=== PATIENT | female | born 1995 | race Caucasian/White ===

== ENCOUNTER 2017-07-20 00:33 | Emergency (ER) | payer MEDICAID, SELFPAY ==
[2017-07-20 00:34] VITALS: BP 112/71; PULSE 71; RESP 17; TEMP 36.7; O2SAT 97; BMI 27.3
[2017-07-20] MEDS: Clindamycin HCl 150 MG Capsule 450 MG PO (01:02)
--- NOTE | 2017-07-20 01:05 | ED.VISSUMM ---
- ER Visit Summary Date of Service: 07/20/17 Chief Complaint: [] Rash History of Present Illness: The patient is a 21 F [] any of abdominal wall rash/abscess beginning 2 days ago. She reports she is 8 weeks . Denies fevers. Does report previous exposure to MRSA. She is also here with her 1-year-old child is also checked in for a skin lesion on the right knee. No other complaints at this time. Physical Examination: [] Examination of the skin reveals a 1 cm nonfluctuant central induration abscess with surrounding erythema. It has the appearance consistent of a MRSA infection. There is no lymphatic streaking. Abdomen is soft nontender. Remainder of exam is unremarkable. Test Results: [] None Emergency Department Course and Treatment: [] In light of the patient's status this makes many antibiotics contraindicated. Because the likelihood that this is a recurrence of a MRSA infection she was provided with clindamycin 450 mg orally in the emergency department as well as provided a prescription for clindamycin 450 mg 3 times daily for 14 days. She was encouraged to follow-up with her TOW OPERATOR and or primary care physician. I did not feel the wound warranted incision and drainage as it was nonfluctuant. Treatment Plan: [] Discharged home on oral antibiotic treatment. Disposition: [] Discharge, stable. Impression: [] Abdominal wall abscess, likely MRSA. This note was generated with [employer] dictation software. It may contain incorrect words, spelling, and punctuation that were not noted in review of the chart prior to signing ED Disposition - Plan for ED Patient: Chief Complaint: Abscess Referrals: Michael Barbosa MD [Primary Care Provider] -
--- NOTE | 2017-07-20 01:09 | ED.DCSUM_ITS ---
- ER Visit Summary Date of Service: 07/20/17 Chief Complaint: [] Rash History of Present Illness: The patient is a 21 F [] any of abdominal wall rash/ abscess beginning 2 days ago. She reports she is 8 weeks . Denies fevers. Does report previous exposure to MRSA. She is also here with her 1- year-old child is also checked in for a skin lesion on the right knee. No other complaints at this time. Physical Examination: [] Examination of the skin reveals a 1 cm nonfluctuant central induration abscess with surrounding erythema. It has the appearance consistent of a MRSA infection. There is no lymphatic streaking. Abdomen is soft nontender. Remainder of exam is unremarkable. Test Results: [] None Emergency Department Course and Treatment: [] In light of the patient's status this makes many antibiotics contraindicated. Because the likelihood that this is a recurrence of a MRSA infection she was provided with clindamycin 450 mg orally in the emergency department as well as provided a prescription for clindamycin 450 mg 3 times daily for 14 days. She was encouraged to follow-up with her ROOM SERVICE MANAGER and or primary care physician. I did not feel the wound warranted incision and drainage as it was nonfluctuant. Treatment Plan: [] Discharged home on oral antibiotic treatment. Disposition: [] Discharge, stable. Impression: [] Abdominal wall abscess, likely MRSA. This note was generated with [employer] dictation software. It may contain incorrect words, spelling, and punctuation that were not noted in review of the chart prior to signing ED Disposition - Plan for ED Patient: Chief Complaint: Abscess Referrals: Michael Barbosa MD [Primary Care Provider] -
--- NOTE | 2017-07-20 01:09 | ED.DEP ---
ED Disposition - Plan for ED Patient: Disposition: Home or Assisted Living Chief Complaint: Abscess Instructions: ED Skin Infec MRSA Suspect Conf Prescriptions: Clindamycin [Cleocin] 450 mg PO TID 14 Days #126 cap Referrals: Michael Barbosa MD [Primary Care Provider] -
--- NOTE | 2017-07-20 01:40 | NURSING ---
DISCHARGE INSTRUCTIONS GIVEN TO AND REVIEWED WITH PATIENT, PATIENT DENIES QUESTIONS OR CONCERNS AND VOICES UNDERSTANDING OF DISCHARGE INSTRUCTIONS. PT AMBULATES OUT OF ROOM WITHOUT DIFFICULTY.
== END 2017-07-20 01:44 | disposition home or self-care (01) ==
LOC: ED 01:43
PROVIDERS: Emergency Provider Emergency Medicine; Family Provider Family Medicine; PCP Family Medicine
DX: L02.211 Cutaneous abscess of abdominal wall (principal)
CPT/HCPCS: 99283

== ENCOUNTER 2017-11-02 22:08 | Emergency (ER) | payer MEDICAID, SELFPAY ==
[2017-11-02 22:09] VITALS: BP 100/39; PULSE 111; RESP 16; TEMP 36.4; O2SAT 99; BMI 29.3
[2017-11-02] MEDS: 0.9% Normal Saline 1,000 ML 1000 ML IV (23:03)
--- NOTE | 2017-11-02 23:07 | ED.VISSUMM ---
- ER Visit Summary Date of Service: 11/02/17 Chief Complaint: Nausea, vomiting, diarrhea History of Present Illness: The patient is a 22 F who presents with nausea, vomiting, diarrhea that began today. Patient states she ate a bowl of cereal this morning without any problems. Patient states she ate soup for lunch started having nausea, vomiting, and diarrhea since that time. Patient is approximately 24 weeks . Patient denies any vaginal bleeding or discharge. Patient denies any leakage of fluids. Patient admits to some diffuse abdominal cramping. Patient states her diarrhea is watery. Patient states her emesis is stomach contents. Patient denies any hematemesis, coffee-ground emesis, melena, or hematochezia. Patient denies any dysuria or hematuria. Physical Examination: Vital signs are stable except for a tachycardia of 111. Patient is afebrile. Patient is in no acute distress. Oral mucosa is pink and moist. Neck is supple. There is good range of motion. Heart was regular and tachycardic. Lungs are clear and equal bilaterally. Abdomen is soft. There is mild diffuse tenderness. There is no rebound or guarding noted. Cranial nerves II through XII are intact. There are no focal motor or sensory deficits noted. The remaining physical exam is within normal limits. Test Results: CBC shows mild leukocytosis of 12.1. Conference of metabolic profile is within normal limits. Quantitative hCG is 4412 which is the low end of the normal range at 24 weeks. Urinalysis was obtained and shows ketones of 150, leukocyte esterase was 25. There were 0-5 white blood cells, 0 red blood cells, and 5-10 epithelial cells. Emergency Department Course and Treatment: Patient was given IV fluids and Zofran here. heart tones were obtained and were 134. Patient still had some mild abdominal cramping. Patient was instructed to drink plenty of fluids. Patient was given a prescription for Zofran. Patient was instructed to follow-up with her LABORER COOK [employer]SE in 2-3 days. Patient understood and was agreeable with the plan. All questions were answered. Disposition: Discharge home Impression: Nausea, vomiting, diarrhea This note was generated with [employer] dictation software. It may contain incorrect words, spelling, and punctuation that were not noted in review of the chart prior to signing ED Disposition - Plan for ED Patient: Disposition: Home or Assisted Living Chief Complaint: Nausea/Vomiting/Diarrhea Diagnosis: Nausea vomiting and diarrhea Instructions: ED Vomiting Diarrhea Nonspecific Ad Referrals: Michael Barbosa MD [Primary Care Provider] -
--- NOTE | 2017-11-02 23:12 | ED.DCSUM_ITS ---
- ER Visit Summary Date of Service: 11/02/17 Chief Complaint: Nausea, vomiting, diarrhea History of Present Illness: The patient is a 22 F who presents with nausea, vomiting, diarrhea that began today. Patient states she ate a bowl of cereal this morning without any problems. Patient states she ate soup for lunch started having nausea, vomiting, and diarrhea since that time. Patient is approximately 24 weeks . Patient denies any vaginal bleeding or discharge. Patient denies any leakage of fluids. Patient admits to some diffuse abdominal cramping. Patient states her diarrhea is watery. Patient states her emesis is stomach contents. Patient denies any hematemesis, coffee- ground emesis, melena, or hematochezia. Patient denies any dysuria or hematuria. Physical Examination: Vital signs are stable except for a tachycardia of 111. Patient is afebrile. Patient is in no acute distress. Oral mucosa is pink and moist. Neck is supple. There is good range of motion. Heart was regular and tachycardic. Lungs are clear and equal bilaterally. Abdomen is soft. There is mild diffuse tenderness. There is no rebound or guarding noted. Cranial nerves II through XII are intact. There are no focal motor or sensory deficits noted. The remaining physical exam is within normal limits. Test Results: CBC shows mild leukocytosis of 12.1. Conference of metabolic profile is within normal limits. Quantitative hCG is 4412 which is the low end of the normal range at 24 weeks. Urinalysis was obtained and shows ketones of 150, leukocyte esterase was 25. There were 0-5 white blood cells, 0 red blood cells, and 5-10 epithelial cells. Emergency Department Course and Treatment: Patient was given IV fluids and Zofran here. heart tones were obtained and were 134. Patient still had some mild abdominal cramping. Patient was instructed to drink plenty of fluids. Patient was given a prescription for Zofran. Patient was instructed to follow-up with her VALVE TECHNICIAN in 2-3 days. Patient understood and was agreeable with the plan. All questions were answered. Disposition: Discharge home Impression: Nausea, vomiting, diarrhea This note was generated with [employer] dictation software. It may contain incorrect words, spelling, and punctuation that were not noted in review of the chart prior to signing ED Disposition - Plan for ED Patient: Disposition: Home or Assisted Living Chief Complaint: Nausea/Vomiting/Diarrhea Diagnosis: Nausea vomiting and diarrhea Instructions: ED Vomiting Diarrhea Nonspecific Ad Referrals: Michael Barbosa MD [Primary Care Provider] -
[2017-11-02] MEDS: Ondansetron 4 MG/2 ML Vial IV (23:19)
[2017-11-02 23:32] LABS: Absolute Lymphocyte Count 0.74 X10^3/ul (0.83-4.51); Absolute Neutrophil Count 10.7 X10^3/uL (2.0-7.7); Basophil# 0.01 X10^3/uL; Basophil% 0.1 % (0-1); Eosinophil# 0.01 X10^3/uL; Eosinophils% 0.1 % (0-5); Hematocrit 38.6 % (37-47); Hemoglobin 13.3 g/dl (12.0-15.0); Lymphocyte # 0.74 X10^3/ul (4.0); Lymphocyte % 6.1 % (19-41); Mean Corp Hgb Conc 34.5 g/gl (32-36); Mean Corpuscular Hgb 29.3 pg (27.0-32.0); Monocyte# 0.49 X10^3/uL; Monocyte% 4.1 % (0-10); Neutrophil # 10.69 X10^3/uL (2.7-7.7); Neutrophil % 88.5 % (47-70); Platelet Count 240 K/mm3 (150-450); RBC Distribution Width CV 13.1 % (11.6-14.6); RBC Distribution Width SD 39.9 fl (35.1-43.9); Red Blood Count 4.54 M/mm3 (4.2-5.4); White Blood Count 12.1 K/mm3 (4.4-11.0)
[2017-11-02 23:35] LABS: POSITIVE COUNT NO; POSITIVE DIFFERENTIAL NO; POSITIVE MORPHOLOGY NO
[2017-11-02 23:40] LABS: ALB/GLOB Ratio 0.7 RATIO (0.9-2.4); AST(SGOT) 13 U/L (15-37); Alanine Aminotransfer ALT/SGPT 14 U/L (13-56); Albumin, Serum 3.3 g/dL (3.2-5.0); Alkaline Phosphatase 70 U/L (45-117); Anion Gap 12 (5-15); BUN 14 mg/dL (7-18); BUN/Creat Ratio 18.9 RATIO (10-20); Calcium,Total 8.6 mg/dL (8.5-10.1); Chloride 106 mmol/L (98-107); Creatinine, Serum 0.74 mg/dL (0.55-1.02); EST Glomerular Filtration Rate 104 mL/min (>60); Est Glom Filt Rate - Afr Amer 126 mL/min (>60); Estimated Creatinine Clearance 98.64 ml/min; Globulin 4.6 g/dL (2.2-4.2); Glucose 87 mg/dL (74-106); Potassium 3.6 mmol/L (3.5-5.1); Protein, Total 7.9 g/dL (6.4-8.2); Sodium Level 140 mmol/L (136-145)
[2017-11-02 23:53] LABS: hCG Titer Quant., Serum 4412 mIU/mL (<9 non-preg)
[2017-11-03 00:21] LABS: Bacteria 0 SEEN /hpf (None Seen); Red Blood Cells-Urine 0 SEEN /hpf (0-5)
[2017-11-03 00:25] LABS: Color, Urine Yellow (Yellow); Glucose, Dipstick Normal (Normal); Leukocyte Esterase-Dipstick 25 /ul (Negative); Nitrite-Dipstick Negative (Negative); Occult Blood-Urine Negative /ul (Negative); Protein-Dipstick 15 mg/dl (Negative); Urine Clarity Clear (Clear); Urine Urobilinogen Normal (Normal)
[2017-11-03 00:31] LABS: Mucous, Urine 3+ /hpf (<or=2+); Squamous Epithelial Cells - UA 5-10 SEEN /hpf (5-10)
[2017-11-03 00:32] LABS: White Blood Cells 0-5 SEEN /hpf (0-5)
[2017-11-03 00:41] LABS: Urine Bilirubin Dipstick 3 mg/dL (Negative)
[2017-11-03 00:43] LABS: Ketone-Dipstick 150 mg/dl (Negative)
[2017-11-03 01:18] VITALS: BP 113/73; PULSE 76; RESP 16; O2SAT 96
== END 2017-11-03 01:18 | disposition home or self-care (01) ==
PROVIDERS: Emergency Provider Emergency Medicine; Family Provider Family Medicine; PCP Family Medicine
DX: O99.89 Other specified diseases and conditions complicating pregnancy, childbirth and the puerperium (principal); R11.2 Nausea with vomiting, unspecified; R19.7 Diarrhea, unspecified; R10.84 Generalized abdominal pain; R00.0 Tachycardia, unspecified; Z3A.24 24 weeks gestation of pregnancy
CPT/HCPCS: 80053; 81001; 84702; 85025; 96361; 96374; 99283; J7030; J2405

== ENCOUNTER → 2018-02-03 18:42 | Outpatient (CLI) | payer MEDICAID, SELFPAY ==
--- NOTE | 2018-02-03 18:50 | US_ITS ---
STUDY: SECOND AND THIRD TRIMESTER OBSTETRICAL ULTRASOUND - LIMITED REASON FOR EXAM: Female, 22 years old. Small for dates. LMP: 05/14/2017 PRIOR ULTRASOUND: None. TECHNIQUE: Transabdominal real-time exam with manuel scale image documentation. FINDINGS: There is a single intrauterine fetus. The fetus is in a cephalic presentation. There is demonstrated cardiac activity with a heart rate of 139 bpm. There is a normal amniotic fluid volume. The largest amniotic fluid pocket measures 3.9 x 5.0 cm. The amniotic fluid index (BUTCH) is 13.2 cm. The placenta is anterior and not low lying. There are Grade 2 placental changes. The cervix measures 3.0 cm in length. BIOMETRY: BPD: 8.2 cm: 33 weeks, 0 days HC: 29.9 cm: 33 weeks, 2 days AC: 32.7 cm: 36 weeks, 5 days FL: 6.9 cm: 35 weeks, 3 days Age by LMP: 37 weeks, 6 days. LAURIE by LMP: 02/18/2018. age by current US: 34 weeks, 5 days. LAURIE by current US: 03/12/2018. Estimated weight: 2702 grams, +/- 395 grams, 11 percentile. US/OB Limited With Biometrics IMPRESSION: Single living intrauterine fetus measuring 34 weeks and 5 days with an LAURIE of 03/12/2018. 37 weeks and 6 days with an LAURIE of 02/18/2018 by LMP. Estimated weight: 2702 g +/- 395 g, 11th percentile. Normal amniotic fluid index of 13.2 cm. Grade 2, anterior and not low lying placenta. Cervical length of 3.0 cm. Electronically Signed: Diann Parks MD at 19:45 EDT , Service support ,
== END ==
PROVIDERS: Family Provider Family Medicine; PCP Family Medicine; Visit Provider Obstetrics & Gynecology
DX: O26.849 Uterine size-date discrepancy, unspecified trimester (principal); Z3A.00 Weeks of gestation of pregnancy not specified
CPT/HCPCS: 76816

== ENCOUNTER 2018-02-19 16:20 | Inpatient (IN) | payer MEDICAID, SELFPAY ==
[2018-02-19 13:49] VITALS: BMI 28.8
[2018-02-19] MEDS: Lactated Ringers 1,000 ML 50 ML IV ×3 (16:15→20:27)
[2018-02-19 16:57] LABS: Hematocrit 34.5 % (37-47); Hemoglobin 11.4 g/dl (12.0-15.0); Mean Corpuscular Hgb 26.8 pg (27.0-32.0); Mean Platelet Vol. 10.9 fl (6.2-12.0); Platelet Count 250 K/mm3 (150-450); RBC Distribution Width CV 13.9 % (11.6-14.6); Red Blood Count 4.26 M/mm3 (4.2-5.4); White Blood Count 11.7 K/mm3 (4.4-11.0)
[2018-02-19 17:00] LABS: Scan Indicated on CBC? Y/N NO
[2018-02-19] MEDS: fentaNYL-bupivacaine (epidural) 100 ML BAG EPIDURAL (18:50)
[2018-02-19] MEDS: Mag Hydrox/Al Hydrox/Simeth 30 ML UDC PO (20:20)
--- NOTE | 2018-02-19 20:31 | PCM.HP.OB ---
- Problem List (1) Active labor at term Status: Acute (2) Post-dates Status: Acute (3) History of hemorrhage Status: Acute (4) Rubella non-immune status, antepartum Status: Acute History Date of Admission: 02/19/18 Final LAURIE: 02/18/18 Final LAURIE Source: US <20 weeks Gestational age: 40 Weeks and 1 Days History of this : This is a 22 year-old, G [2], P [1], at 40 weeks gestational age by first trimester U/S. Presented to L&D this afternoon with complaints of contractions throughout the night and continued to increased in strength since awakening. Denies any vaginal bleeding or leakage of fluid. Good movement. Membranes stripped in office yesterday. Medical History: Medical History (Last Updated 11/07/17 @ 13:11 by Maranda Diaz) Z34.90 Allergies No Known Allergies Allergy (Verified 11/07/17 13:10) Home Medications: Home Medications Ferrous Sulfate [Iron] 325 mg PO DAILY 02/19/18 Smoking Status: Never smoker Alcohol: None Heart Tracin, minimal variability, accels, no decels, Category 2 TOCO Analysis: every 2-5 minutes, moderate History Past Pregnancies: Past Pregnancies Delivery Date Name GA/Weeks Outcome Route Weight Gender Labor Length Anesthesia Delivery Location Provider FOB Labs: GBS positive Rubella non immune A positive, antibody screen negative RPR negative HBsAG negative HIV negative Urine tox screen negative Expected Delivery Method: Spontaneous Vaginal Review of Systems Constitutional: Denies: Chills, Fever, Weight Change Cardiovascular: Denies: Chest Pain, Palpitations Respiratory: Denies: Cough, Shortness of breath at rest, Sputum production Gastrointestinal: Denies: Nausea, Vomiting Psychiatric: Denies: Anxiety, Depression, Homicidal Ideations, Suicidal Ideations Physical Exam General: Alert, Oriented x3, No apparent distress Cardiovascular: Regular rate, Regular Rhythm, No murmurs Lungs: Clear to auscultation, No rhonchi, No wheeze Abdomen: Bowel Sounds Present, Gravid Extremities:: No edema Neurological: Deep Tendon Reflexes 2+/4 and Symmetrical Estimated gestational size: Appropriate for gestational size Presentation: Cephalic Cervix Dilation (cm): 6.5 Station: -1 Effacement (%): 80 Assessment/Plan All Active Problems (Last Updated 11/07/17 @ 13:11 by Maranda Diaz) Active labor at term (Acute) Post-dates (Acute) History of hemorrhage (Acute) Rubella non-immune status, antepartum (Acute) Self mutilating behavior (Acute) Depression (Acute) This is a 22 year-old, G [2], P [1], at 40 weeks gestational age. A: Postdates Active labor, progressing GBS positive P: 1) Admit to L&D, routine orders 2) GBS prophylaxis 3) Epidural for pain management. 4) AROM 5) collaborative physician and notified of patient status. Marleen Guerra CNM
[2018-02-19] MEDS: Oxytocin 30 units/NS 500 ml 30 UNITS/500 ML IV.SOLN 334 UNITS IV (21:00)
--- NOTE | 2018-02-19 21:19 | PCM.OB.VAG ---
- Problem List (1) Active labor at term Status: Acute (2) Post-dates Status: Acute (3) History of hemorrhage Status: Acute (4) Rubella non-immune status, antepartum Status: Acute (5) Vaginal delivery Status: Acute Vaginal Delivery Maternal Presentation: Active Labor Amniotic Membrane Rupture Type: Artificial Amniotic Fluid Description: Clear Final LAURIE: 02/18/18 Final LAURIE Source: US <20 weeks Gestational age: 40 Weeks and 1 Days Date of Procedure: 02/19/18 Pre-Operative Diagnosis: Active Labor Post-Operative Diagnosis: Surgery/ Procedure Performed: Spontaneous Vaginal Delivery Type of Anesthesia: Epidural Description of Procedure: Progressed to complete and +2 station with urge to push. of viable female over intact perineum. APGARS 9,10. Placed on maternal abdomen, spontaneous cry, mouth and nose suctioned for secretions. Cord clamped and cut after pulsations ceased by FOB. Pitocin started for active 3rd stage management. Placenta delivered with maternal effort, intact, 3 vessel cord. Perineum inspected and intact. Small periclitoral laceration repaired with 3.0 rapide. Fundus firm, hemostasis achieved, EBL 200ml. Planning to breastfeed. Mom and baby stable. Family bonding well. notified of vaginal delivery. Presentation: Vertex Placental Delivery Description: Spontaneous Placenta Disposition: [facility] Cord Vessel Description: 3 Vessels Cord Entanglement: None Estimated Blood Loss: 200ml Infant A gender: Female (1 minute): 9 (5 minute): 10 Episiotomy Description: None Laceration: Periurethral Extnsion/lac Medications given after delivery: IV Pitocin Complications: None
[2018-02-19] MEDS: Oxytocin 30 units/NS 500 ml 30 UNITS/500 ML IV.SOLN 167 UNITS IV (21:30)
[2018-02-19] MEDS: 0.9% Saline Lock 10 ML Syringe IV (22:33)
[2018-02-19 23:30] VITALS: BP 105/59; PULSE 87; RESP 18; TEMP 36.4; O2SAT 97
[2018-02-20] MEDS: Naproxen 250 MG Tablet PO ×2 (01:46→23:58)
[2018-02-20 04:30] VITALS: BP 98/46; PULSE 57; RESP 17; TEMP 36.4
[2018-02-20 04:34] LABS: Chlamydia Trachomatis by PCR Negative (Negative); Neisserai gonorrhoeae by PCR Negative (Negative); Probe Check PASS; Sample Adequacy Control PASS; Specimen Processing Control PASS
[2018-02-20 08:55] VITALS: BP 91/48; PULSE 64; RESP 18; TEMP 36.6; O2SAT 98
--- NOTE | 2018-02-20 11:37 | PCM.PN.OB ---
Patient Problems: Active and Suspected Problems (Last Updated 11/07/17 @ 13:11 by Maranda Diaz) Active labor at term (Acute) Post-dates (Acute) History of hemorrhage (Acute) Rubella non-immune status, antepartum (Acute) Vaginal delivery (Acute) Subjective: pain well controlled, average lochia. Denies thoughts of harming self or others. States she would contact our office if felt mood worsened upon d/c. Feels mood has been somewhat stable but definitely would like to restart celexa - Physical Exam General: Alert, Cooperative, No apparent distress Vital Signs Temp Pulse Resp BP Pulse Ox 97.8 F 64 18 91/48 L 98 02/20/18 08:55 02/20/18 08:55 02/20/18 08:55 02/20/18 08:55 02/20/18 08:55 Oxygen Delivery Method Room Air Weight: 73.9 kg Body Mass Index (BMI) 28.8 Intake and Output for Last 24 Hours 02/18/18 02/19/18 02/20/18 23:59 23:59 23:59 Intake Total 2120 / 2120 Output Total 500 / 500 1350 / 1350 Balance 1620 / 1620 -1350 / -1350 Laboratory Tests Past 24 Hrs 02/19/18 02/19/18 02/19/18 01:15 16:13 16:13 WBC 11.7 H RBC 4.26 Hgb 11.4 L Hct 34.5 L MCV 81.0 MCH 26.8 L MCHC 33.0 RDW 13.9 RDW Differential 40.0 Plt Count 250 MPV 10.9 Chlam trachomat DNA PCR Negative N.gonorrhoeae DNA (PCR) Negative Blood Type A POSITIVE Antibody Screen NEGATIVE Medical Necessity - Tobacco Use Smoking Status: Never smoker Assessment/Plan All Active Problems (Last Updated 11/07/17 @ 13:11 by Maranda Diaz) Active labor at term (Acute) Post-dates (Acute) History of hemorrhage (Acute) Rubella non-immune status, antepartum (Acute) Vaginal delivery (Acute) Self mutilating behavior (Acute) Depression (Acute) PPD#1 s/p doing well bottle feeding h/o depression/mood disorder. Would like to restart celexa, will restart at 10 mg for now
[2018-02-20 12:10] VITALS: BP 88/46; PULSE 74; RESP 16; TEMP 36.4; O2SAT 97
[2018-02-20] MEDS: Citalopram 10 MG Tablet PO (13:49)
[2018-02-20 16:05] VITALS: BP 88/47; PULSE 72; RESP 48; TEMP 36.4; O2SAT 96
[2018-02-20 20:00] VITALS: BP 104/60; PULSE 61; RESP 16; TEMP 36.2; O2SAT 98
[2018-02-21 02:45] VITALS: BP 95/54; PULSE 61; RESP 16; TEMP 36.2
[2018-02-21 08:00] VITALS: BP 100/54; PULSE 58; RESP 16; TEMP 36.1; O2SAT 97
[2018-02-21] MEDS: Senna/Docusate Sodium 1 Tablet PO (08:17)
[2018-02-21] MEDS: Naproxen 250 MG Tablet PO (08:17)
[2018-02-21] MEDS: Citalopram 10 MG Tablet PO (08:17)
--- NOTE | 2018-02-21 08:58 | DCINST_ITS ---
Discharge Diet: No Restrictions Discharge Activity: Return to Normal Activity, May not drive while taking narcotic pain medications., May Shower May resume sexual activity in: 4-6 weeks Additional Activity Instructions:: Nothing in the vagina for 4-6 weeks. You may return to work/school in 6 weeks. Call your doctor if your incision/area has: Continuous Slow Oozing, Sudden Increased Bleeding, Increased Pain/ Swelling, Increased Redness, Foul Smelling Discharge Call your doctor if you observe: Fever of 101 or Higher, Inability to urinate, Inability to have a bowel movement, Using more than one pad per hour Additional Instructions: If you experience any of the following, contact your healthcare provider. * Bleeding that soaks a pad every hour for 2 hours * Fever 100.4 or higher * Unrelieved incision or abdominal pain * Swelling, redness, discharge or bleeding from your incision or episiotomy site * Your incision begins to separate * Problems urinating (including inability to urinate or burning while urinating) . * Visual changes * Severe headache * Flu-like symptoms * Pain or redness in one of both of your breasts * Pain, warmth, tenderness or swelling in your legs, especially the calf area * Frequent nausea and vomiting * Symptoms of depression or anxiety If you experience any of the following, call 911 or go to the nearest Emergency Room. * Chest pain * Problems breathing * Seizure activity * Partial or complete paralysis of a body part, slurred speech, weakness or drooping of the face, or a sudden inability to walk or hold your balance Allergies/Adverse Reactions: Allergies No Known Allergies Allergy (Verified 11/07/17 13:10) Medications to take at Discharge Ferrous Sulfate [Iron] 325 mg PO DAILY 02/19/18 Citalopram [Celexa] 10 mg PO DAILY #90 tab 02/21/18 Vit No.130/Iron/FA [ Vitamins] 1 ea PO DAILY #90 tab 02/21/18 The following prescriptions were given: Citalopram [Celexa] 10 mg PO DAILY #90 tab Vit No.130/Iron/FA [ Vitamins] 1 ea PO DAILY #90 tab Please Follow Up With: Marleen Guerra CNM When: Call to make an appointment with your doctor in 6 weeks. If you had elevated Blood Pressure or 4th degree laceration you will need to be seen in 2 weeks. Primary Care Physician: Michael Barbosa MD [Primary Care Provider] - Test Results: Test results from this visit will be discussed in further detail at your follow- up appointment, if applicable. Proposed Discharge Date: 02/21/18
--- NOTE | 2018-02-21 08:58 | PCM.PN.OB ---
Patient Problems: Active and Suspected Problems (Last Updated 11/07/17 @ 13:11 by Maranda Diaz) Active labor at term (Acute) Post-dates (Acute) History of hemorrhage (Acute) Rubella non-immune status, antepartum (Acute) Vaginal delivery (Acute) Subjective: Patient laying on side in bed, reports no issues currently. Patient reports pain with latch, has made the decision to change to formula feeding at this time. Encourage patient to consider pumping of colostrum/breast milk. Patient will consider. Denies KULKARNI, scotoma or dizziness. Denies issues with urination or ambulation. Denies any issues with mood - Celexa 10mg Rx'ed yesterday to be started. Patient to be discharged home with Rx today. Requests discharge to home today. Objective: Nipples without cracks or blisters Abdomen NT x 4 quadrants, FF midline 2FB below umbilicus Scant rubra lochia Perineum well-approximated +2/4 reflexes in LE, no edema noted - Physical Exam General: Alert, Oriented x3, Cooperative HEENT: Atraumatic, Normocephalic Neck: Supple Lungs: Clear to auscultation, Normal air movement Cardiovascular: Regular rate, No murmurs Abdomen: Soft, Non Tender Extremities: No edema, Capillary Refill Less than 3 Seconds Skin: No rashes, No breakdown Musculoskeletal: No Tenderness to Palpation of Joints or Extremities Neurological: Cranial nerves II-XII grossly intact Psych/Mental Status: Normal Affect, Appropriate, Alert and oriented to time, place, person, mood and affect Vital Signs Temp Pulse Resp BP Pulse Ox 96.9 F L 58 L 16 100/54 L 97 02/21/18 08:00 02/21/18 08:00 02/21/18 08:00 02/21/18 08:00 02/21/18 08:00 Oxygen Delivery Method Room Air Weight: 162 lb 14.746 oz Body Mass Index (BMI) 28.8 Intake and Output for Last 24 Hours 02/19/18 02/20/18 02/21/18 23:59 23:59 23:59 Intake Total 2120 / 2120 Output Total 500 / 500 1350 / 1350 Balance 1620 / 1620 -1350 / -1350 Medical Necessity - Tobacco Use Smoking Status: Never smoker Assessment/Plan All Active Problems (Last Updated 11/07/17 @ 13:11 by Maranda Diaz) Active labor at term (Acute) Post-dates (Acute) History of hemorrhage (Acute) Rubella non-immune status, antepartum (Acute) Vaginal delivery (Acute) Self mutilating behavior (Acute) Depression (Acute) A: 22 y/o now, s/p , PPD #2, Normal Course P: 1) Discharge to home pending discharge 2) consultation today prior to discharge 3) Celexa 10mg PO daily #90 disp no RF sent to patient's listed pharmacy 4) Anticipatory discharge health teaching done 5) RTC at 6 weeks PP to [facility] Maria Elena JOSE
[2018-02-21 13:10] VITALS: BP 103/53; PULSE 65; RESP 18; TEMP 36.4; O2SAT 97
--- NOTE | 2018-02-26 13:45 | NURSING ---
Follow up phone call completed and patient states she is doing really well. Switched from bottle feeding to , mother states she is doing well has some trouble latching but aware she can have a consult if desires and was satisfied with her care.
== END 2018-02-21 17:00 | disposition home or self-care (01) | DRG 373 ==
LOC: WPOUT 16:40
PROVIDERS: Advanced Practice Midwife; Admitting Provider Obstetrics & Gynecology; Family Provider Family Medicine; PCP Family Medicine; Visit Provider Obstetrics & Gynecology
DX: O48.0 Post-term pregnancy (principal); Z37.0 Single live birth; Z3A.40 40 weeks gestation of pregnancy; O71.5 Other obstetric injury to pelvic organs; F32.9 Major depressive disorder, single episode, unspecified; O99.344 Other mental disorders complicating childbirth; O99.820 Streptococcus B carrier state complicating pregnancy
CPT/HCPCS: 59025; 59050; 85027; 86850; 86900; 87491; 87591; 99218; J7120; A4216; G0378

== ENCOUNTER 2018-10-17 12:37 | Emergency (ER) | payer MEDICAID, SELFPAY ==
[2018-10-17 12:38] VITALS: BP 99/63; PULSE 108; RESP 18; TEMP 39.4; O2SAT 98; BMI 23.7
== END 2018-10-17 14:20 | disposition left against medical advice (07) ==
PROVIDERS: Emergency Provider Emergency Medicine; Family Provider Family Medicine; PCP Family Medicine
DX: K08.89 Other specified disorders of teeth and supporting structures (principal)

== ENCOUNTER → 2021-04-21 | Outpatient (CLI) | payer MEDICAID, SELFPAY ==
[2021-04-24 07:08] LABS: Chlamydia By Nucleic Acid AMP Negative (Negative)
[2021-04-24 18:02] LABS: Gonococcus By Nucleic Acid AMP Negative (Negative)
== END | disposition home or self-care (01) ==
LOC: LABSPEC 14:07
PROVIDERS: PCP Family Medicine; Visit Provider Obstetrics & Gynecology
DX: Z11.3 Encounter for screening for infections with a predominantly sexual mode of transmission (principal)
CPT/HCPCS: 87491; 87591

== ENCOUNTER 2021-07-17 16:58 | Emergency (ER) | payer MEDICAID, SELFPAY ==
[2021-07-17 16:59] VITALS: BP 102/31; PULSE 76; RESP 16; TEMP 36.8; O2SAT 99; BMI 23.9
--- NOTE | 2021-07-17 17:27 | EX.ED.VIS.UR ---
HPI HPI - URI History of Present Illness Chief Complaint: Cough Narrative Narrative: 25-year-old female presenting with URI symptoms. Apparently she had expanded exposed to Covid and she has had a cough which is mild, chills, body aches. She denies loss of taste or smell. She denies a fever. Patient does not have chest pain or shortness of breath. She states her daughter currently has URI symptoms and was diagnosed with a viral pharyngitis. ROS ROS ED Constitutional Constitutional ED: Denies chills or fever(s) Eyes Eyes: Denies blurry vision or change in vision ENT ENT ED: Reports rhinorrhea and sore throat Cardiovascular Cardiovascular: Denies chest pain or palpitations Respiratory/Chest Respiratory/Chest: Reports cough and dyspnea Gastrointestinal Gastrointestinal: Denies abdominal pain, nausea or vomiting Genitourinary Genitourinary ED: Denies dysuria or hematuria Musculoskeletal Musculoskeletal: Reports myalgias; Denies arthralgias or neck pain Integumentary Denies abscess or rash Neurologic Neurologic: Denies headache(s) or weakness PFSH PFSH Medical History Home Medications fluoxetine 20 mg PO DAILY 07/17/21 [History Last Taken Unknown] hydroxyzine pamoate [Vistaril] 25 mg PO BID PRN 07/17/21 [History Last Taken Unknown] norgestimate-ethinyl estradiol [Nini] 1 tab PO DAILY 07/17/21 [History Last Taken Unknown] Allergy/AdvReac Type Severity Reaction Status Date / Time No Known Allergies Allergy Verified 10/17/18 12:38 Social History Smoking Status: Never smoker alcohol intake: never EXAM Physical Exam Const Vital Signs: 07/17/21 16:59 07/17/21 17:09 Temperature 98.2 F Temperature Source Temporal Pulse Rate 76 Respiratory Rate 16 Respiratory Effort Normal Non-Labored Respiratory Pattern Normal Blood Pressure 102/31 L Blood Pressure Mean 54 Pulse Ox 99 Oxygen Delivery Method Room Air Positive well nourished General Appearance ED: NAD; Negative for pallor HEENT Reports moist mucous membranes normocephalic and atraumatic Eyes PERRL and EOMs intact bilaterally Neck supple and no meningeal signs Resp normal respiratory effort and clear to auscultation bilaterally Cardio Rate: regular rate Rhythm: regular rhythm Neuro oriented x3 and CN's II-XII intact bilaterally Sensorium / Orientation: alert Psych mental status grossly normal Skin General Skin Exam: Negative for jaundice or pallor Rashes: no rashes MDM MDM MDM Narrative Medical decision making narrative: Patient's rapid Covid testing was negative. She states that she has been ill for a few days. She denies any severe symptoms. Her vital signs are stable and she is afebrile. I counseled her to continue alternating doses of Tylenol and ibuprofen for pain or fever. She has severe symptoms she is return to the ER. Otherwise she should quarantine until her symptoms are improved. Impression: 1. Viral syndrome Discharge Plan Triage Chief Complaint: Cough ED Provider: Augustine Herbert Dx/Rx/DC Orders Instructions: ED Viral Syndrome (Adult) Prescriptions: No Action fluoxetine 20 mg Capsule 20 mg PO DAILY RF: 0 norgestimate-ethinyl estradiol [Nini] 0.25-35 mg-mcg tablet 1 tab PO DAILY RF: 0 hydroxyzine pamoate [Vistaril] 25 mg Capsule 25 mg PO BID PRN (Reason: Anxiety) RF: 0 Primary Care Provider: Marlena Parikh NP Referrals: Marlena Parikh NP, MACHINE W[employer]ER-C [Primary Care Provider] - Disposition Disposition: Home, Self Care
== END 2021-07-17 18:14 | disposition home or self-care (01) ==
PROVIDERS: Emergency Provider Student in an Organized Health Care Education/Training Program; PCP Nurse Practitioner Primary Care
DX: B34.9 Viral infection, unspecified (principal); R05.9 Cough, unspecified; M79.10 Myalgia, unspecified site; Z20.822 Contact with and (suspected) exposure to COVID-19
CPT/HCPCS: 87426; 99282

== ENCOUNTER 2021-10-28 16:09 | Outpatient (CLI) | payer MEDICAID, SELFPAY ==
[2021-11-06 22:25] LABS: HPV APTIMA, High Risk Positive (Negative); HPV Reflexed? YES, CHARGE PATIENT
== END 2021-10-28 23:59 | disposition home or self-care (01) ==
LOC: LABSPEC 16:11
PROVIDERS: PCP Nurse Practitioner Primary Care; Visit Provider Obstetrics & Gynecology
DX: Z12.4 Encounter for screening for malignant neoplasm of cervix (principal)
CPT/HCPCS: 87624; 88175; G0145

== ENCOUNTER → 2021-12-15 | Outpatient (CLI) | payer MEDICAID, SELFPAY ==
--- NOTE | 2021-12-15 | CER_PTH ---
PATIENT: SEEMA MACKENZIE LOC: [facility] U#:[id number] AGE/SX: 26/F ROOM: RE12/15/[address]: Dr. Mario Talley MD : 1995 BED: DIS: 12/15/2021 SPEC #: [id number] RECD: 12/15/21 17:07 STATUS: NITHIN RELorne #: [id number] JERSON: 12/15/21 00:[address]: Mario Talley DEPT: SURGICAL PATHOLOGY RECD BY: Bryce Haley ENTERED: 12/16/21 09:33 SP TYPE: CERV OTHR DR: Marlena Parikh, QUILL REAMER-C Tissues: A - Endocervical B - Uterine cervix, NOS Procedures: Surgery Specimen Level IV HEADER OPERATION: Colposcopy PRE-OP DIAGNOSIS: ASCUS, HPV positive TISSUE SUBMITTED: A ? Endocervical curettings, B ? Cervical biopsy, 3 and 9 o?clock MICROSCOPIC DIAGNOSIS A. Endocervical curettings: Fragments of benign endocervical epithelium and mucous, negative for dysplasia. B. Cervix, 3 and 9 o?clock, biopsy: Focal minimal changes suspicious for HPV cytopathic effects. Marked chronic inflammation and mild acute inflammation. See comment. SJ:rg 12/17/2021 COMMENT B. Immunohistochemistry ([id number]) for surrogate HPV marker (p16) supports the above diagnosis. Clinical correlation and appropriate follow up are necessary. MICROSCOPIC DESCRIPTION Slides are reviewed. GROSS DESCRIPTION A - Received in fixative is one container labeled with the patient's name and designated endocervical curettings. The specimen consists of multiple irregular fragments of cyr mucoid tissue that in aggregate measure 2 x 0.5 x <0.1 cm. The specimen is totally submitted in one cassette. B - Received in fixative is one container labeled with the patient's name and designated cervical biopsy, 3 and 9 o'clock. The specimen consists of multiple irregular fragments of light cyr soft tissue that in aggregate measure 1.5 x 0.5 x 0.1 cm. The specimen is totally submitted in one cassette. / PETE:kiki 12/16/2021 TC:5 CPT: 89175 x2
--- NOTE | 2021-12-15 | IMM_PTH ---
PATIENT: SEEMA MACKENZIE LOC: [facility] U#:[id number] AGE/SX: 26/F ROOM: RE12/15/[address]: Dr. Mario Talley MD : 1995 BED: DIS: 12/15/2021 SPEC #: [id number] RECD: 12/17/21 13:02 STATUS: NITHIN REQ #: [id number] JERSON: 12/15/21 00:[address]: Mario Talley DEPT: IMMUNOHISTOCHEMISTRY RECD BY: Ligia Flores ENTERED: 12/17/21 13:03 SP TYPE: IMMUNO OTHR DR: Marlena Parikh, PHOTOGRAPHER NEWS-C Tissues: B - Uterine cervix, NOS Procedures: p16 (initial) KI-67 (add) PHYSICIAN & INSTITUTION [place] [id number] SPECIMEN INFORMATION: Tissue Source: B ? Cervix at 3 and 9 o?clock Clinical Info: ASCUS, HPV positive Specimen Number: [id number] CPT code: 39533, 24540 METHODOLOGY: Deparaffinized sections of prefer/formalin-fixed tissue or PAP/DQ stained slides are incubated with monoclonal/polyclonal antibodies/oligonucleotide probes. Localization is made via biotin free immunoperoxidase method. Appropriate controls are performed and reacted as expected. Results on target cell population are indicated in the following table: RESULTS: ANTIBODY / CLONE RESULT Block B P16 (E6H4) positive, patchy and focal Ki-67 (30-9) positive, low These tests were developed and their performance characteristics determined by [facility]. They may not have been cleared or approved by the [place]. Food and Drug Administration. The FDA has determined that such clearance or approval is not necessary. The above immunohistochemical/dualISH markers are ordered and reviewed by the Pathologist. INTERPRETATION: B. Cervix at 3 and 9 o?clock, biopsy: Focal minimal changes suspicious for HPV cytopathic effects. SJ:kiki 12/18/2021
== END | disposition home or self-care (01) ==
LOC: LABSPEC 16:24
PROVIDERS: PCP Nurse Practitioner Primary Care; Visit Provider Obstetrics & Gynecology
DX: N72 Inflammatory disease of cervix uteri (principal)
CPT/HCPCS: 88305; 88341; 88342

== ENCOUNTER → 2022-02-11 | Outpatient (CLI) | payer MEDICAID, SELFPAY | END | disposition home or self-care (01) | PROVIDERS: PCP Nurse Practitioner Primary Care; Visit Provider Obstetrics & Gynecology | DX: N94.9 Unspecified condition associated with female genital organs and menstrual cycle (principal); Z11.3 Encounter for screening for infections with a predominantly sexual mode of transmission ==

== ENCOUNTER → 2022-05-07 | Outpatient (CLI) | payer MEDICAID, SELFPAY ==
[2022-05-11 22:06] LABS: Chlamydia By Nucleic Acid AMP Negative (Negative)
[2022-05-12 13:21] LABS: Gonococcus By Nucleic Acid AMP Negative (Negative)
== END | disposition home or self-care (01) ==
LOC: LABSPEC 16:40
PROVIDERS: PCP Nurse Practitioner Primary Care; Visit Provider Obstetrics & Gynecology
DX: Z11.3 Encounter for screening for infections with a predominantly sexual mode of transmission (principal)
CPT/HCPCS: 87491; 87591

== ENCOUNTER → 2022-11-18 | Outpatient (CLI) | payer MEDICAID, SELFPAY ==
[2022-11-25 13:10] LABS: HPV Reflexed? NOT INDICATED
== END | disposition home or self-care (01) ==
LOC: LABSPEC 16:04
PROVIDERS: PCP Nurse Practitioner Primary Care; Visit Provider Obstetrics & Gynecology
DX: Z12.4 Encounter for screening for malignant neoplasm of cervix (principal)
CPT/HCPCS: 88175; G0145

== ENCOUNTER 2023-07-29 15:53 | Outpatient (CLI) | payer MEDICAID, SELFPAY ==
[2023-07-29 16:16] VITALS: BMI 33.3
[2023-07-29 16:29] VITALS: TEMP 36.7
[2023-07-29 16:30] VITALS: BP 103/57; PULSE 67; O2SAT 98
[2023-07-29] MEDS: Acetaminophen 500 MG Tablet 1000 MG PO (17:40)
[2023-07-29 17:45] VITALS: TEMP 36.9
[2023-07-29 17:47] VITALS: BP 105/57; PULSE 66
--- OUTSIDE RECORDS SUMMARY | 2023-07-29 18:20 | XMS RPT_ITS | CCD ---
Author Name Unknown Address [address] [place] [address] Organization [facility] Care Team Providers [facility] Associate Name Role Phone Eliazar Mcclellan Unavailable Unavailable Unavailable Solo Cormier MD Primary Care Provider Podlogar AUTOMOBILE RADIATOR MECHANIC.GAS REGULATOR REPAIRER, Marlena Primary Care Provider Podlogar AUTOMOBILE RADIATOR MECHANIC.GAS REGULATOR REPAIRER, Marlena Primary Care Provider Podlogar AUTOMOBILE RADIATOR MECHANIC.GAS REGULATOR REPAIRER, Marlena Primary Care Provider Podlogar AUTOMOBILE RADIATOR MECHANIC.GAS REGULATOR REPAIRER, Marlena Primary Care Provider RO CRONINCIA A Referring Unavai lable PODLOGAR, MARLENA Primary Care Unavailable RO CRONINCIA A Referring Unavai lable PODLOGAR, [facility] Primary Care Unavailable RO CRONINCIA A Referring Unavai lable PODLOGAR, [facility] Primary Care Unavailable RO CRONINCIA A Referring Unavai lable PODLOGAR, [facility] Primary Care Unavailable MEHRDAD OLECIA A Referring Unavai lable PODLOGAR, [facility] Primary Care Unavailable MEHRDAD, OLECIA A Referring Unavai lable PODLOGAR, [facility] Primary Care Unavailable MARLEEN ALONSO Unavaila ble PODLOGAR, [facility] Primary Care Unavailable RO CRONINCIA A Referring Unavai lable PODLOGAR, MARLENA Primary Care Unavailable RHEA TAPIA Attending Unavailable VIDHYA MC Referring Unavailable PODLOGAR, MARLENA Primary Care Unavailable SZEDNY-SANDY, OLECIA A Referring Unavai lable PODLOGAR, MARLENA Primary Care Unavailable SZEDNY-SANDY, OLECIA A Referring Unavai lable PODLOGAR, MARLENA Primary Care Unavailable SZEDNY-SANDY, OLECIA A Referring Unavai lable PODLOGAR, MARLENA Primary Care Unavailable SZEDNY-SANDY, OLECIA A Referring Unavai lable PODLOGAR, MARLENA Primary Care Unavailable SZEDNY-SANDY, OLECIA A Referring Unavai lable PODLOGAR, MARLENA Primary Care Unavailable SZEDNY-SANDY, OLECIA A Referring Unavai lable PODLOGAR, MARLENA Primary Care Unavailable PODLOGAR AUTOMOBILE RADIATOR MECHANIC.LAMONTE, MARLENA Primary Care Physician HARSHAL EAST MD Attending Unavailable PODLOGAR AUTOMOBILE RADIATOR MECHANIC.LAMONTE, MARLENA Primary Care Unavail able PODLOGAR, MARLENA Primary Care Unavailable PODLOGAR, MARLENA Attending Unavailable PODLOGAR, MARLENA Primary Care Unavailable PODLOGAR, MARLENA Attending Unavailable MARLEEN GUERRA Attending Unavailable PODLOGAR, MALRENA Primary Care Unavailable PODLOGAR, MARLENA Primary Care Unavailable GUERRA, MARLEEN Referring Unavailable GUERRA, MARLEEN Attending Unavailable PODLOGAR, MARLENA Primary Care Unavailable GUERRA, MARLEEN Referring Unavailable DC OLIVARES Referring Unavailable PODLOGAR, MARLENA Primary Care Unavailable PODLOGAR, MARLENA Primary Care Unavailable PODLOGAR, MARLENA Primary Care Unavailable GUERRA, MARLEEN Referring Unavailable GUERRA, MARLEEN Referring Unavailable GUERRA, MARLEEN Attending Unavailable PODLOGAR, MARLENA Primary Care Unavailable GUERRA, MARLEEN Referring Unavailable PODLOGAR, MARLENA Primary Care Unavailable GUERRA, MARLEEN Referring Unavailable PODLOGAR, MARLENA Primary Care Unavailable HODA MITCHELL Attending Unavailable GUERRA, MARLEEN Referring Unavailable PODLOGAR, MARLENA Primary Care Unavailable PODLOGAR, MARLENA Primary Care Unavailable PODLOGAR, MARLENA Primary Care Unavailable DC OLIVARES Attending Unavailable PODLOGAR, MARLENA Primary Care Unavailable Medications Current Medications Medication Drug Class(es) Dates Sig (Normalized) Sig (Original) albuterol MDI (90 mcg/inh) CFC free inhalation aerosol (1 source) Start: 02-10-2020 albuterol MDI (90 mcg/inh) CFC free inhalation aerosol 0 Refill(s) Start Date: 02/10/20 Status: Ordered amoxicillin 500 mg oral capsule (3 sources) Penicillin-class Antibacterial Start: 10-29-2022 End: 11-08-2022 take 1 capsule by mouth twice daily amoxicillin (AMOXIL) 500 mg capsule Indications: Pharyngitis, unspecified etiology , Bacterial sinusitis Take 1 capsule by mouth twice daily for 10 days. 20 capsule 0 10/29/2022 11/08/2022 Active Completed/Discontinued Medications Medication Drug Class(es) Dates Sig (Normalized) Sig (Original) aspirin 81 mg delayed release oral tablet (6 sources) Platelet Aggregation Inhibitor, Nonsteroidal Anti-inflammatory Drug Start: 05-14-2023 take 1 tablet by mouth once daily aspirin, enteric coated (ASPIRIN, ENTERIC COATED) 81 mg EC tablet Take 1 tablet by mouth once daily. 30 tablet 5 05/14/2023 Active Problems Active Problems Problem Classification Problem Date Documented Da te Episodic/Chronic Anxiety disorders (20 sources) Mixed anxiety and depressive disorder; Translations: [Anxiety disorder, unspecified] Onset: 03-23-2022 Chronic Attention-deficit, conduct, and disruptive behavior disorders (20 sources) Attention-deficit hyperactivity disorder, unspecified type; Translations: [Attention deficit disorder with hyperactivity] Onset: 10-08-2005 10-08-2005 Chronic Conditions associated with dizziness or vertigo (1 source) Lightheadedness; Translations: [Dizziness and giddiness] Episodic Immunizations and screening for infectious disease (1 source) Suspected disease caused by 2019-nCoV; Translations: [Suspected 2019 novel coronavirus infection] Episodic Mood disorders (20 sources) Moderately severe depression; Translations: [Moderately severe depression] Onset: 03-23-2022 Chronic Other complications of (7 sources) Uterine size for dates discrepancy; Translations: [Uterine size-date discrepancy, first trimester] Onset: 05-14-2023 05-14-2023 Episodic Other complications of (2 sources) Hyperemesis gravidarum; Translations: [Vomiting of , unspecified] Onset: 06-15-2023 06-15-2023 Episodic Other complications of (1 source) Uterine size-date discrepancy, first trimester; Translations: [Uterine size-date discrepancy, first trimester] Onset: 05-22-2023 Episodic Other female genital disorders (1 source) Vaginal discharge; Translations: [Leukorrhea, not specified as infective] Episodic Other female genital disorders (1 source) Lesion of left ovary; Translations: [Noninflammatory disorder of ovary, fallopian tube and broad ligament, unspecified] Episodic Other gastrointestinal disorders (1 source) Loose stool; Translations: [Other fecal abnormalities] Episodic Other and delivery including normal (9 sources) Normal ; Translations: [Encounter for supervision of other normal , unspecified trimester] Onset: 05-14-2023 05-14-2023 Episodic Other screening for suspected conditions (not mental disorders or infectious disease) (1 source) care status; Translations: [Encounter for screening, unspecified] 05-28-2023 Episodic Other skin disorders (1 source) Eruption; Translations: [Rash and other nonspecific skin eruption] 03-25-2023 Episodic Other upper respiratory disease (1 source) Pain in throat; Translations: [Pain in throat] Episodic Other upper respiratory infections (1 source) Bacterial sinusitis; Translations: [Chronic sinusitis, unspecified] Chronic Personality disorders (20 sources) Borderline personality disorder; Translations: [Borderline personality disorder] Onset: 03-23-2022 Chronic Residual codes; unclassified (1 source) Gestation period, 7 weeks; Translations: [Less than 8 weeks gestation of ] 05-14-2023 Episodic Residual codes; unclassified (1 source) Gestation period, 12 weeks; Translations: [12 weeks gestation of ] 05-28-2023 Episodic Residual codes; unclassified (1 source) Gestation period, 15 weeks; Translations: [15 weeks gestation of ] 06-15-2023 Episodic Residual codes; unclassified (1 source) 15 weeks gestation of ; Translations: [15 weeks gestation of ] Onset: 06-16-2023 Episodic Residual codes; unclassified (1 source) Less than 8 weeks gestation of ; Translations: [7 weeks gestation of ] Onset: 05-28-2023 Episodic Residual codes; unclassified (1 source) 12 weeks gestation of ; Translations: [12 weeks gestation of ] Onset: 05-28-2023 Episodic Unclassified (1 source) APPOINTMENT CANCELLED Viral infection (2 sources) Viral disease; Translations: [Viral infection, unspecified] Episodic Past or Other Problems Problem Classification Problem Date Documented Date Episodic/Chronic Abdominal pain (4 sources) Generalized abdominal pain; Translations: [Generalized abdominal pain] Onset: 02-09-2022 Episodic Biliary tract disease (2 sources) Gallstone; Translations: [Calculus of gallbladder without cholecystitis without obstruction] Onset: 02-09-2022 Episodic Inflammation; infection of eye (except that caused by tuberculosis or sexually transmitteddisease) (2 sources) Bacterial conjunctivitis; Translations: [Unspecified conjunctivitis] Onset: 11-25-2022 Episodic Other complications of (1 source) Rubella non-immune; Translations: [Supervision of other high risk pregnancies, unspecified trimester] Onset: 08-04-2017 06-01-2023 Episodic Other skin disorders (1 source) Rash and other nonspecific skin eruption; Translations: [Rash of hands] Onset: 03-25-2023 Episodic Other upper respiratory infections (2 sources) Pharyngitis; Translations: [Acute pharyngitis, unspecified] Onset: 10-29-2022 Episodic Ovarian cyst (1 source) Unspecified ovarian cyst, left side; Translations: [Cyst of left ovary] Onset: 02-09-2022 Episodic Screening and history of mental health and substance abuse codes (20 sources) Personal history of other mental and behavioral disorders; Translations: [Personal history of other mental disorders] Onset: 03-23-2022 Episodic Spondylosis; intervertebral disc disorders; other back problems (20 sources) Pain in spine; Translations: [Dorsalgia, unspecified] Onset: 07-05-2020 07-05-2020 Episodic Substance-related disorders (20 sources) Nondependent cannabis abuse, episodic; Translations: [Cannabis use, unspecified, uncomplicated] Onset: 03-23-2022 Episodic Results Test Name Value Interpretation Reference Range Facil ity Vital Signs Date Time Vital Sign Value Performing Clinician Facility 06-15-2023 15:22-050 Body weight 81.19 kg Marleen Guerra APRN.CNM Work Phone: [facility] 06-15-2023 15:22-0500 Diastolic blood pressure 62 mm[Hg] Marleen Guerra APRN.CNM Work Phone: [facility] 06-15-2023 15:22-0500 Systolic blood pressure 106 mm[Hg] Marleen Guerra AUTOMOBILE RADIATOR MECHANIC.CNM Work Phone: [facility] 05-18-2023 11:31-0400 Body temperature 98.1 [degF] Dakota Cabreraasaf AUTOMOBILE RADIATOR MECHANIC.GAS REGULATOR REPAIRER Work Phone: [facility] 05-18-2023 11:31-0400 Body weight 80.74 kg Dakota Cabreraasaf AUTOMOBILE RADIATOR MECHANIC.GAS REGULATOR REPAIRER Work Phone: [facility] 05-18-2023 11:31-0400 Diastolic blood pressure 78 mm[Hg] [facility]OMOBILE RADIATOR MECHANIC.GAS REGULATOR REPAIRER Work Phone: [facility] 05-18-2023 11:31-0400 Heart rate 87 /min Dakota Cabreraasaf AUTOMOBILE RADIATOR MECHANIC.GAS REGULATOR REPAIRER Work Phone: [facility] 05-18-2023 11:31-0400 Respiratory rate 18 /min Dakota Cabreraasaf AUTOMOBILE RADIATOR MECHANIC.GAS REGULATOR REPAIRER Work Phone: [facility] 05-18-2023 11:31-0400 SaO2% (BldA) [Mass fraction] 98 % [facility] AUTOMOBILE RADIATOR MECHANIC.GAS REGULATOR REPAIRER Work Phone: [facility] 05-18-2023 11:31-0400 Systolic blood pressure 122 mm[Hg] Dakota Cabreraasaf AUTOMOBILE RADIATOR MECHANIC.GAS REGULATOR REPAIRER Work Phone: [facility] 05-14-2023 13:22-0400 Body height 160 cm Marleen Guerra AUTOMOBILE RADIATOR MECHANIC.CNM Work Phone: [facility] 05-14-2023 13:22-0400 Body weight 80.74 kg Marleen Guerra AUTOMOBILE RADIATOR MECHANIC.CNM Work Phone: [facility] 05-14-2023 13:22-0400 Diastolic blood pressure 64 mm[Hg] Marleen Guerra AUTOMOBILE RADIATOR MECHANIC.CNM Work Phone: [facility] 05-14-2023 13:22-0400 Systolic blood pressure 98 mm[Hg] Marleen Guerra AUTOMOBILE RADIATOR MECHANIC.CNM Work Phone: [facility] 03-25-2023 09:53-0400 Body temperature 97.59 [degF] Marlena Podlogar AUTOMOBILE RADIATOR MECHANIC.GAS REGULATOR REPAIRER Work Phone: [facility] 03-25-2023 09:53-0400 Body weight 79.38 kg Marlena Podlogar AUTOMOBILE RADIATOR MECHANIC.GAS REGULATOR REPAIRER Work Phone: [facility] 03-25-2023 09:53-0400 Diastolic blood pressure 74 mm[Hg] Marlena Podlogar AUTOMOBILE RADIATOR MECHANIC.GAS REGULATOR REPAIRER Work Phone: [facility] 03-25-2023 09:53-0400 Heart rate 84 /min Marlena Podlogar AUTOMOBILE RADIATOR MECHANIC.GAS REGULATOR REPAIRER Work Phone: [facility] 03-25-2023 09:53-0400 Respiratory rate 16 /min Marlena Podlogar AUTOMOBILE RADIATOR MECHANIC.GAS REGULATOR REPAIRER Work Phone: [facility] 03-25-2023 09:53-0400 SaO2% (BldA) [Mass fraction] 99 % Marlena Podlogar AUTOMOBILE RADIATOR MECHANIC.GAS REGULATOR REPAIRER Work Phone: [facility] 03-25-2023 09:53-0400 Systolic blood pressure 116 mm[Hg] Marlena Podlogar AUTOMOBILE RADIATOR MECHANIC.GAS REGULATOR REPAIRER Work Phone: [facility] 11-25-2022 11:04-0400 Body weight 82.56 kg Marlena Podlogar AUTOMOBILE RADIATOR MECHANIC.GAS REGULATOR REPAIRER Work Phone: [facility] 11-25-2022 11:04-0400 Diastolic blood pressure 66 mm[Hg] Marlena Podlogar AUTOMOBILE RADIATOR MECHANIC.GAS REGULATOR REPAIRER Work Phone: [facility] 11-25-2022 11:04-0400 Heart rate 61 /min Marlena Podlogar AUTOMOBILE RADIATOR MECHANIC.GAS REGULATOR REPAIRER Work Phone: [facility] 11-25-2022 11:04-0400 Respiratory rate 18 /min Marlena Podlogar AUTOMOBILE RADIATOR MECHANIC.GAS REGULATOR REPAIRER Work Phone: [facility] 11-25-2022 11:04-0400 SaO2% (BldA) [Mass fraction] 96 % Marlena Podlogar AUTOMOBILE RADIATOR MECHANIC.GAS REGULATOR REPAIRER Work Phone: [facility] 11-25-2022 11:04-0400 Systolic blood pressure 98 mm[Hg] Marlena Parikh APRN.GAS REGULATOR REPAIRER Work Phone: [facility] 10-29-2022 14:41-0400 Body temperature 98.01 [degF] Dc Olivares AUTOMOBILE RADIATOR MECHANIC.GAS REGULATOR REPAIRER Work Phone: [facility] 10-29-2022 14:41-0400 Body weight 83.92 kg Dc Olivares AUTOMOBILE RADIATOR MECHANIC.GAS REGULATOR REPAIRER Work Phone: [facility] 10-29-2022 14:41-0400 Diastolic blood pressure 74 mm[Hg] Dc Olivares AUTOMOBILE RADIATOR MECHANIC.GAS REGULATOR REPAIRER Work Phone: [facility] 10-29-2022 14:41-0400 Heart rate 80 /min Dc Olivares AUTOMOBILE RADIATOR MECHANIC.GAS REGULATOR REPAIRER Work Phone: [facility] 10-29-2022 14:41-0400 Respiratory rate 16 /min Dc Olivares AUTOMOBILE RADIATOR MECHANIC.GAS REGULATOR REPAIRER Work Phone: [facility] 10-29-2022 14:41-0400 SaO2% (BldA) [Mass fraction] 98 % Dc Olivares AUTOMOBILE RADIATOR MECHANIC.GAS REGULATOR REPAIRER Work Phone: [facility] 10-29-2022 14:41-0400 Systolic blood pressure 120 mm[Hg] Dc Olivares AUTOMOBILE RADIATOR MECHANIC.GAS REGULATOR REPAIRER Work Phone: [facility] 10-08-2022 14:38-0400 Body temperature 97.81 [degF] Karen Athy PA-C Work Phone: [facility] 10-08-2022 14:38-0400 Body weight 82.74 kg Karen Athy PA-C Work Phone: [facility] 10-08-2022 14:38-0400 Diastolic blood pressure 82 mm[Hg] Karen Athy PA-C Work Phone: [facility] 10-08-2022 14:38-0400 Heart rate 81 /min Karen Athy PA-C Work Phone: [facility] 10-08-2022 14:38-0400 Respiratory rate 18 /min Karenyoselin Noonany PA-C Work Phone: [facility] 10-08-2022 14:38-0400 SaO2% (BldA) [Mass fraction] 97 % Karenyoselin Noonany PA-C Work Phone: [facility] 10-08-2022 14:38-0400 Systolic blood pressure 124 mm[Hg] Karenyoselin Noonany PA-C Work Phone: [facility] 09-24-2022 11:16-0500 Diastolic Blood Pressure Non-Invasive 64 1 HARSHAL EAST MD [facility] 09-24-2022 11:16-0500 Heart rate 73 /min HARSHAL EAST MD [facility] 09-24-2022 11:16-0500 Respiratory rate 16 /min HARSHAL EAST MD [facility] 09-24-2022 11:16-0500 Systolic Blood Pressure Non-Invasive 101 1 HARSHAL EAST MD [facility] 09-24-2022 09:26-0500 Body height 160 cm HARSHAL EAST MD [facility] 09-24-2022 09:26-0500 Body temperature 98.6 [degF] HARSHAL EAST MD [facility] 09-24-2022 09:26-0500 Body weight 81.8 kg HARSHAL EAST MD [facility] 09-24-2022 09:26-0500 Diastolic Blood Pressure Non-Invasive 73 1 HARSHAL EAST MD [facility] 09-24-2022 09:26-0500 Heart rate 78 /min HARSHAL EAST MD [facility] 09-24-2022 09:26-0500 Respiratory rate 16 /min HARSHAL EAST MD [facility] 09-24-2022 09:26-0500 Systolic Blood Pressure Non-Invasive 102 1 HARSHAL EAST MD [facility] 08-12-2022 14:55-0500 Body temperature 97.81 [degF] Dakota Juares AUTOMOBILE RADIATOR MECHANIC.GAS REGULATOR REPAIRER Work Phone: [facility] 08-12-2022 14:55-0500 Body weight 82.46 kg Dakota Juares AUTOMOBILE RADIATOR MECHANIC.GAS REGULATOR REPAIRER Work Phone: [facility] 08-12-2022 14:55-0500 Diastolic blood pressure 78 mm[Hg] Dakota Pendleasaf AUTOMOBILE RADIATOR MECHANIC.GAS REGULATOR REPAIRER Work Phone: [facility] 08-12-2022 14:55-0500 Heart rate 81 /min Dakota Juares AUTOMOBILE RADIATOR MECHANIC.GAS REGULATOR REPAIRER Work Phone: [facility] 08-12-2022 14:55-0500 Respiratory rate 18 /min Dakota Juares AUTOMOBILE RADIATOR MECHANIC.GAS REGULATOR REPAIRER Work Phone: [facility] 08-12-2022 14:55-0500 SaO2% (BldA) [Mass fraction] 99 % Dakota Juares AUTOMOBILE RADIATOR MECHANIC.GAS REGULATOR REPAIRER Work Phone: [facility] 08-12-2022 14:55-0500 Systolic blood pressure 110 mm[Hg] Dakota Gomezleasaf AUTOMOBILE RADIATOR MECHANIC.GAS REGULATOR REPAIRER Work Phone: [facility] 02-11-2022 11:20-0400 Body temperature 97.59 [degF] Marlena Parikh AUTOMOBILE RADIATOR MECHANIC.GAS REGULATOR REPAIRER Work Phone: [facility] 02-11-2022 11:20-0400 Body weight 77.11 kg Marlena Parikh AUTOMOBILE RADIATOR MECHANIC.GAS REGULATOR REPAIRER Work Phone: [facility] 02-11-2022 11:20-0400 Diastolic blood pressure 72 mm[Hg] Marlena Podlogar AUTOMOBILE RADIATOR MECHANIC.GAS REGULATOR REPAIRER Work Phone: [facility] 02-11-2022 11:20-0400 Heart rate 75 /min Marlena Podlogar AUTOMOBILE RADIATOR MECHANIC.GAS REGULATOR REPAIRER Work Phone: [facility] 02-11-2022 11:20-0400 Respiratory rate 18 /min Marlena Podlogar AUTOMOBILE RADIATOR MECHANIC.GAS REGULATOR REPAIRER Work Phone: [facility] 02-11-2022 11:20-0400 SaO2% (BldA) [Mass fraction] 99 % Marlena Podlogar AUTOMOBILE RADIATOR MECHANIC.GAS REGULATOR REPAIRER Work Phone: [facility] 02-11-2022 11:20-0400 Systolic blood pressure 98 mm[Hg] Marlena Podlogar AUTOMOBILE RADIATOR MECHANIC.GAS REGULATOR REPAIRER Work Phone: [facility] 02-02-2022 12:33-0400 Body temperature 98.1 [degF] Marlena Podlogar AUTOMOBILE RADIATOR MECHANIC.GAS REGULATOR REPAIRER Work Phone: [facility] 02-02-2022 12:33-0400 Body weight 76.39 kg Marlena Podlogar AUTOMOBILE RADIATOR MECHANIC.GAS REGULATOR REPAIRER Work Phone: [facility] 02-02-2022 12:33-0400 Diastolic blood pressure 68 mm[Hg] Marlena Podlogar AUTOMOBILE RADIATOR MECHANIC.GAS REGULATOR REPAIRER Work Phone: [facility] 02-02-2022 12:33-0400 Heart rate 96 /min Marlena Podlogar AUTOMOBILE RADIATOR MECHANIC.GAS REGULATOR REPAIRER Work Phone: [facility] 02-02-2022 12:33-0400 Respiratory rate 18 /min Marlena Podlogar AUTOMOBILE RADIATOR MECHANIC.GAS REGULATOR REPAIRER Work Phone: [facility] 02-02-2022 12:33-0400 SaO2% (BldA) [Mass fraction] 98 % Marlena Podlogar AUTOMOBILE RADIATOR MECHANIC.GAS REGULATOR REPAIRER Work Phone: [facility] 02-02-2022 12:33-0400 Systolic blood pressure 104 mm[Hg] Marlena Podlogar AUTOMOBILE RADIATOR MECHANIC.GAS REGULATOR REPAIRER Work Phone: [facility] 12-30-2021 14:29-0400 Body weight 75.39 kg Marlena Podlogar AUTOMOBILE RADIATOR MECHANIC.GAS REGULATOR REPAIRER Work Phone: [facility] 12-30-2021 14:29-0400 Diastolic blood pressure 66 mm[Hg] Marlena Podlogar AUTOMOBILE RADIATOR MECHANIC.GAS REGULATOR REPAIRER Work Phone: [facility] 12-30-2021 14:29-0400 Heart rate 94 /min Marlena Podlogar AUTOMOBILE RADIATOR MECHANIC.GAS REGULATOR REPAIRER Work Phone: [facility] 12-30-2021 14:29-0400 Respiratory rate 18 /min Marlena Podlogar AUTOMOBILE RADIATOR MECHANIC.GAS REGULATOR REPAIRER Work Phone: [facility] 12-30-2021 14:29-0400 SaO2% (BldA) [Mass fraction] 98 % Marlena Podlogar AUTOMOBILE RADIATOR MECHANIC.GAS REGULATOR REPAIRER Work Phone: [facility] 12-30-2021 14:29-0400 Systolic blood pressure 100 mm[Hg] Marlena Podlogar AUTOMOBILE RADIATOR MECHANIC.GAS REGULATOR REPAIRER Work Phone: [facility] 02-07-2021 15:22-0400 Body height 160.02 cm Eliazar Mcclellan Work Phone: [facility] Work Phone: 02-07-2021 15:22-0400 Body mass index (BMI) [Ratio] 22.67 kg/m2 Eliazar Mcclellan Work Phone: [facility] Work Phone: 02-07-2021 15:22-0400 Body surface area Derived from formula 1.6 m2 Eliazar Mcclellan Work Phone: [facility] Work Phone: 02-07-2021 15:22-0400 Body temperature 98.1 [degF] Eliazar Mcclellan Work Phone: [facility] Work Phone: 02-07-2021 15:22-0400 Body weight 58.06 kg Eliazar Mcclellan Work Phone: [facility] Work Phone: 02-07-2021 15:22-0400 Diastolic blood pressure 66 mm[Hg] Eliazar Mcclellan Work Phone: [facility] Work Phone: 02-07-2021 15:22-0400 Heart rate 88 /min Eliazar Mcclellan Work Phone: [facility] Work Phone: 02-07-2021 15:22-0400 Respiratory rate 16 /min Eliazar Mcclellan Work Phone: [facility] Work Phone: 02-07-2021 15:22-0400 SaO2% (BldA) [Mass fraction] 96 % Eliazar Mcclellan Work Phone: [facility] Work Phone: 02-07-2021 15:22-0400 Systolic blood pressure 96 mm[Hg] Eliazar Mcclellan Work Phone: [facility] Work Phone: 02-07-2021 15:22-0400 0 1 Eliazar Mcclellan Work Phone: [facility] Work Phone: Encounters Encounter Date Encounter Type Care Provider Facility Start: 07-20-2023 End: 07-20-2023 ambulatory HODA MITCHELL Facility:[facility] Start: 06-16-2023 End: 06-17-2023 ambulatory MARLEEN GUERRA Facility:[facility] Start: 06-15-2023 End: 06-15-2023 ambulatory MARLEEN GUERRA Facility:[facility] Start: 06-15-2023 End: 06-15-2023 Patient encounter procedure Marleen Guerra AUTOMOBILE RADIATOR MECHANIC.CNM Work Phone: OB/Gynecology Procedures Date Procedure Procedure Detail Performing Clinician Start: 06-15-2023 URINE OB DIP B/O Vishnu Guerra APRN.CNM Work Phone: Start: 05-28-2023 Antibody screen MARLENA Childs GALI Plan of Treatment Date Care Activity Detail Author Start: 01-21-2028 Urine microalbumin profile [facility] Start: 05-14-2026 Pap Testing Pap Testing [facility] Start: 11-18-2025 PAP TESTING PAP TESTING [facility] Start: 06-15-2023 End: 06-15-2024 OBSTETRIC ULTRASOUND [facility] OBSTETRIC ULTRASOUND [facility] Anc Imaging Routine Encounter for supervision of normal in multigravida 15 weeks gestation of Expected: 06/15/2023, Expires: 06/15/2024 [facility] Work Phone: Immunizations Immunization Date Immunization Notes Care Provider Manish wolf 06-16-2021 COVID-19 vaccine, ag e 12+ yr (Screenz-BIONTTray - PURPLE TOP) [place] Nurse Work Phone: [facility] 01-20-2018 tetanus toxoid, redu hui diphtheria toxoid, and acellular pertussis vaccine, adsorbed Mi Nurse Work Phone: [facility] 09-27-1996 diphtheria, tetanus toxoids and pertussis vaccine Mi Nurse Work Phone: [facility] 09-27-1996 haemophilus influenz ae type b vaccine, conjugate unspecified formulation Mi Nurse Work Phone: [facility] 09-27-1996 measles, mumps and rubella virus vaccine Mi Nurse Work Phone: [facility] 09-27-1996 poliovirus vaccine, inactivated Mi Nurse Work Phone: [facility] 08-08-1996 diphtheria, tetanus toxoids and pertussis vaccine Mi Nurse Work Phone: [facility] 08-08-1996 haemophilus influenz ae type b vaccine, conjugate unspecified formulation Mi Nurse Work Phone: [facility] 08-08-1996 poliovirus vaccine, inactivated Mi Nurse Work Phone: [facility] 1995 diphtheria, tetanus toxoids and pertussis vaccine Mi Nurse Work Phone: [facility] 1995 haemophilus influenz ae type b vaccine, conjugate unspecified formulation Mi Nurse Work Phone: [facility] 1995 hepatitis B vaccine, adult dosage Mi Nurse Work Phone: [facility] 1995 poliovirus vaccine, inactivated Mi Nurse Work Phone: [facility] 1995 hepatitis B vaccine, unspecified formulation Vidhya Mc APRN.GAS REGULATOR REPAIRER Work Phone: [facility] Payers Date Payer Category Payer Unknown [id number] 2019 Medicaid [id number] 2019 Medicaid [id number] 2017 Medicaid [id number] 1995 Unknown [id number] Unknown [employer] Social History Date Type Detail Facility Start: 08-08-2018 End: 10-08-2022 Tobacco smoking status NHIS Ex-smoker [facility] Work Phone: Start: 08-08-2018 End: 08-12-2022 Tobacco use and exposure Smokeless tobacco non-user [facility] Work Phone: Start: 09-24-2021 End: 06-15-2023 Alcohol intake Current drinker of alcohol (finding) [facility] Start: 05-10-2020 End: 10-29-2022 History SDOH Alcohol Frequency 3 [facility] Start: 05-10-2020 End: 10-29-2022 History SDOH Alcohol Std Drinks 2 [facility] Start: 03-19-2021 History SDOH Alcohol Comment rare use [facility] Start: 05-10-2020 End: 10-29-2022 History SDOH Social Connections Phone 5 [facility] Start: 05-10-2020 History SDOH Social Connections Get Together 98 [facility] Start: 05-10-2020 End: 10-29-2022 History SDOH Social Connections Baptism 1 [facility] Start: 05-10-2020 End: 10-29-2022 History SDOH Social Connections Living 7 [facility] Start: 05-10-2020 History SDOH Physical Activity DPW 6 [facility] Start: 05-10-2020 Education 12 [facility] Start: 03-19-2021 End: 08-12-2022 Tobacco Comment vape [facility] Start: 1995 Sex Assigned At Female [facility] Start: 08-25-2021 End: 02-09-2022 Exposure to SARS-CoV-2 (event) Not sure [facility] Start: 12-20-2021 End: 12-30-2021 Exposure to SARS-CoV-2 (event) Unable to assess [facility] Work Phone: Start: 02-02-2022 End: 10-29-2022 History SDOH Financial 4 [facility] History of tobacco use Current smoker [facility] Start: 10-17-2018 Tobacco smoking status Light tobacco smoker (finding) [facility] Sex Assigned At Sex [facility] Start: 10-08-2022 Tobacco use and exposure User of smokeless tobacco [facility] Start: 10-29-2022 End: 05-14-2023 History of Social function [facility] Start: 10-29-2022 End: 05-14-2023 Social connection and isolation panel [facility] Do you belong to any clubs or organizations such as zoroastrianism groups, unions, fraternal or athletic groups, or school groups? No [facility] Are you now , , , , never or living with a partner? Never [facility] How often to you hav e a drink containing alcohol? 2-4 times a month [facility] How many standard dr inks containing alcohol do you have on a typical day? 3 or 4 [facility] How often do you hav e 6 or more drinks on 1 occasion? Less than monthly [facility] How hard is it for y ou to pay for the very basics like food, housing, medical care, and heating Not very hard [facility] Adult Depression Screening Assessment 1 [facility] Do you feel stress - tense, restless, nervous, or anxious, or unable to sleep at night because your mind is troubled all the time - these days [OSQ] Only a little [facility] (I/We) worried whechantelle er (my/our) food would run out before (I/we) got money to buy more. Never true [facility] Start: 05-23-2020 Gender identity Identifies as female gender (finding) [facility] Start: 05-23-2020 Sexual orientation Heterosexual (finding) [facility] The thought of josh gallegos myself has occurred to me Never [facility] Start: 03-15-2023 [facility] Goals Date Patient Goal Desired Activity /State Personal health goal Functional Status Date Assessment Result Facility 09-24-2022 Functional Status Independent [facility] 09-24-2022 Functional Status ID band on, Call device within reach, Bed in low position, Wheels locked, Upper/Half-Length side-rails up, Visitor at bedside [facility] Mental Status Date Assessment Result Facility 09-24-2022 Mental Status Orientation Oriented x 4 [facility] 09-24-2022 Mental Status [facility] Clinical Notes 02-04-2018 to 06-15-2023 Quick Notes - Marleen Guerra APRN.CNM - 06/15/2023 4:08 PM ESTPrenatal Quick Notes - Iris Smith - 06/15/2023 4:00 PM ESTPatient InstructionsPatient InstructionsPatient Instructions Note Date & Type Note Facility 06-15-2023 Miscellaneous Notes RAPHAEL-S: Seema Santanacker is a 27 year old female who presents at 15w1d with LAURIE:12/06/2023, by Ultrasound for a routine visit. Denies headache, visual changes, chest pain, shortness of breath, vaginal bleeding, leakage of fluid, or dysuria. Feeling well, except for lingering nausea and occasional emesis. 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 O: See flow sheet Gen: No apparent distress Abd: Gravid, nontender ASSESSMENT/PLAN: 1. Encounter for supervision of normal in multigravida 2. 15 weeks gestation of 3. Nausea and vomiting of P: 1) PTL precautions reviewed and when to call 2) RTO in 4 weeks 3) NIPT bill received, will call [id number] and insurance. 4) Anatomy US next visit 5) Encourage eating snack at bedtime, even in middle of night to avoid empty stomach. Lola chews. 6.) Will add Vit B6 and Unisom at qhs. 7) Rx for Zofran sent to pharmacy. 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 I have re-performed the HPI, Physical Examination, Assessment and Plan. Marleen Guerra APRN.CNM Medical Decision Making: Problems: Low: Acute, uncomplicated illness or injury Data: Unique source(s) for external note(s) reviewed: 2 Unique test result(s) reviewed: 2 Unique test(s) ordered: 2 Assessment requiring an independent historian(s) Risk: Moderate: Drug management Medical Decision Making Level: 4 - Moderate RS: Seema Monteiro is a 27 year old female who presents at 15 w1d with LAURIE 12/06/23 by US. Possibly felt movement once this past week. Denies headache, shortness of breath, chest pain vaginal bleeding, leakage of fluid Is still experiencing daily nausea, occasional vomiting especially in am when mouth is dry. Requesting medication for nausea. Has used Zofran previous . Otherwise she's feeling very well. O: See flow sheet Gen: No acute distress Abdomen: Gravid, non tender Assessment/Plan: 15 weeks gestation of Encounter for supervision of normal , 2nd trimester. Nausea/ vomiting of documented in this encounter [facility] 06-15-2023 Instructions Marleen Guerra APRN.CNM - 06/15/2023 3:20 PM EST SEQUENTIAL SCREENINGS The [facility] offers sequential screenings for women who are interested in screenings for chromosomal abnormalities and certain defects during a . The sequential screen combines ultrasound and blood tests to determine the risk of chromosomal abnormalities, including Down's Syndrome (Trisomy 21) and Trisomy 18, as well as open neural tube defects including spina bifida. Ultrasound examination is performed between 11 weeks and 13 weeks gestational age. Blood tests are drawn after the ultrasound and again later in the between 15 and 21 weeks gestational age. Please let your physician know if you are interested in this testing. It will require an appointment with our structured cabling technician. This is not an ultrasound performed by a physician in our office during a routine visit. SIGNS AND SYMPTOMS OF LABOR 1. Contractions every 10 minutes or more often 2. Clear, pink, or brownish fluid (water) leaking from vagina 3. Feeling that baby is pushing down, pressure 4. Low, dull backache 5. Cramps that feel like a period 6. Cramps with or without diarrhea If you notice any of the above symptoms, contact our office at [phone] and ask to speak with a nurse. After hours, you can call doctors registry at [phone] OR call [facility] at [phone] and ask to have the doctor digestion operator paged. If you consider this an emergency, dial 9-1-6 or go to your nearest emergency department. NEED HELP? Are you dealing with a violent or abusive relationship? Are you a victim of rape or sexual assult? Call [facility] ([place]) 24 hour Crisis Hotline: 773.519.8804 or 051-002-1400. MANUAL Your Guide to a Healthy manual is now on-line. Visit [email or web address] [email or web address] to download your free copy Ondansetron (Zofran ) February 24, 2020 This sheet talks about exposure to ondansetron in a and while . This information should not take the place of medical care and advice from your healthcare provider. What is ondansetron? Ondansetron is a medication used to treat nausea and vomiting that may be caused by surgery, chemotherapy, or radiation therapy. Ondansetron has also been prescribed during to help with symptoms of nausea and vomiting in (NVP). NVP is also referred to as morning sickness . Ondansetron is taken by mouth, infused into a vein (by IV) or given by injection into a muscle (IM). Ondansetron is sold under the brand name Zofran . What can I do to help control my nausea and vomiting? [employer] has a helpful fact sheet on nausea in with recommendations. You can review it here: https://B-152.org/fact-sh eets/olzohj-biemgmrr-owwzvfwcy-n vp delivery/pdf/. Also, eating small meals often, drinking plenty of clear fluids, and avoiding triggers (such as odors, heat, and spicy or high fat foods) can help. Talk to your healthcare provider about which NVP treatments are right for you. I take ondansetron. Can it make it harder for me to become ? There are no studies that have looked to see if ondansetron could make it harder for a person to get . Studies in animals did not find that ondansetron would affect the ability to get . Does taking ondansetron increase the chance for miscarriage? Miscarriage can occur in any . One study did not find that miscarriage happened more often for those who reported that they used ondansetron in the first trimester of . Does taking ondansetron increase the chance of defects? Every starts out with a 3-5% chance of having a defect. This is called the background risk. Most studies have found no increased chance for defects among thousands of people who used ondansetron in the first trimester of . A few studies reported a very small (less than 1%) increase in the chance for a cleft palate (an opening in the roof of the mouth that may be repaired with surgery) or a heart defect. Because of other factors that could affect the pregnancies exposed to ondansetron, it is not known if ondansetron actually increases the chance of defects. Could taking ondansetron cause other complications? Studies did not find a higher chance of loss, delivery (delivery before 37 weeks of ), or low weight when ondansetron was used during . At higher doses, there have been reports that ondansetron use might cause a heart rhythm problem (called QT interval prolongation) in the person taking ondansetron. In severe cases, this could become an abnormal heart rhythm known as Torsades de Pointes. If you are taking ondansetron, you can talk to your healthcare provider about how to watch for changes in your heart rhythm. Does taking ondansetron in cause long-term problems in behavior or learning for the baby? One study looked at 78 infants who were exposed to ondansetron at any time during . The infants were looked at between 7 days to 2 months of age and did not show any signs of unusual behaviors. A single follow-up survey for about 25 of these children was sent in by the parents. The children were between 1 to 5 years old. The survey asked about behavior. The surveys did not report behavior differences in these children compared to children who were not exposed ondansetron during . There are no other studies looking at the use of ondansetron in and long-term effects for the baby. Can I breastfeed while taking ondansetron? There have been no studies in humans looking at the use of ondansetron during . Studies in animals suggest that ondansetron enters breast milk, but the effects of ondansetron on a are not known. If ondansetron use is necessary, it is not usually a reason to stop . A different drug may be considered, especially while a or . Be sure to talk to your healthcare provider about all your questions. I take ondansetron. Can it make it harder for me to get my partner or increase the chance of defects? There are no human studies looking at male use of ondansetron. Animal studies have not shown any effect on male fertility. In general, exposures that fathers and sperm donor have are unlikely to increase risks to a . For more information, please see the MotherToBaby fact sheet Paternal Exposures at https://mothertobaby.org/fact-sh eets/otvatqxe-rbsxlrakx-djwlmtcb y/pdf/. Nausea and Vomitin) Vitamin B6 50 mg by mouth twice daily. Take this daily until approximately 14 weeks for prevention. 2) Unisom 1/2 tablet by mouth at bedtime. May increase to full tablet if needed. If no improvement in nausea may up to a full tablet every 8 hours as needed. documented in this encounter [facility] 05-22-2023 Miscellaneous Notes NOB, see progress note. Marleen Guerra APRN.CNM documented in this encounter [facility] 05-18-2023 Miscellaneous Notes 1st risk assessment form submitted 05/18/23 Nydia Arshad RN documented in this encounter [facility] 05-18-2023 Note HNO ID: [id number] Author: Dakota Juares APRN.GAS REGULATOR REPAIRER Service: ? Author Type: Nurse Practitioner Type: Progress Notes Filed: 05/18/2023 11:56 AM Note Text: Subjective HPI Nontoxic-appearing 11-week female presents urgent care chief complaint flulike symptoms. Duration of symptoms 2 days. Associated symptoms sore throat nasal drainage body aches chills headache cough. Did have a few episodes of vomiting. Patient states she is 11 weeks . Sick contacts daughter similar signs and symptoms. Respiratory tract infection. Has not use any OTC medications. Denies any high fevers productive cough chest pain shortness of breath abdominal pain rashes change in bowel or bladder habits. Past medical history prescription medication use allergies reviewed. .Patient presents with: Sore Throat: St, drainage, vomiting, bodyaches MENESES and congestion x 2 days PAST MEDICAL HISTORY Diagnosis Date Allergic rhinitis, cause unspecified Anxiety state Chlamydia 18 years old Mental disorder depression Trichimoniasis 01/03/2020 PAST SURGICAL HISTORY Procedure Laterality Date NONE ALLERGIES Patient has no known allergies. MEDICATIONS PNV without Ca-Iron PsCmplx-FA 29 mg iron- 1 mg chew Take 1 tablet by mouth once daily. aspirin, enteric coated (ASPIRIN, ENTERIC COATED) 81 mg EC tablet Take 1 tablet by mouth once daily. FAMILY HISTORY Problem Relation Age of Onset Alcohol/Drug Mother Alcohol/Drug Father COPD Father Anxiety disorder Sister Bipolar disorder Sister No Known Problems Sister No Known Problems Brother No Known Problems Maternal Grandmother No Known Problems Maternal Grandfather No Known Problems Paternal Grandmother No Known Problems Paternal Grandfather Scoliosis Other runs in family Social History Tobacco Use Smoking status: Former Smokeless tobacco: Current Tobacco comments: vape Vaping Use Vaping Use: current everyday user Substance Use Topics Alcohol use: Yes Comment: rare use Drug use: Not Currently Types: Amphetamines, Marijuana BP 122/78 Pulse 87 Temp 36.7 ?C (98.1 ?F) (Tympanic) Resp 18 Wt 80.7 kg (178 lb) LMP 03/22/2023 (Within Days) SpO2 98% BMI 31.53 kg/m? Review of Systems Constitutional: Positive for chills and malaise/fatigue. Negative for fever. HENT: Positive for congestion and sore throat. Negative for ear discharge, ear pain and sinus pain. Eyes: Negative for blurred vision, pain, discharge and redness. Respiratory: Positive for cough. Negative for hemoptysis, sputum production, shortness of breath, wheezing and stridor. Cardiovascular: Negative for chest pain. Gastrointestinal: Positive for vomiting. Negative for abdominal pain, diarrhea and nausea. Musculoskeletal: Positive for myalgias. Skin: Negative for itching and rash. Neurological: Positive for headaches. Negative for dizziness. Objective Physical Exam Constitutional: General: She is not in acute distress. Appearance: She is not diaphoretic. HENT: Head: Normocephalic. Jaw: No trismus, tenderness, swelling or pain on movement. Nose: Congestion present. Mouth/Throat: Mouth: Mucous membranes are moist. Pharynx: Oropharynx is clear. Uvula midline. No pharyngeal swelling, oropharyngeal exudate, posterior oropharyngeal erythema or uvula swelling. Eyes: Conjunctiva/sclera: Conjunctivae normal. Pupils: Pupils are equal, round, and reactive to light. Cardiovascular: Rate and Rhythm: Normal rate and regular rhythm. Heart sounds: Normal heart sounds. Pulmonary: Effort: Pulmonary effort is normal. No tachypnea, accessory muscle usage or respiratory distress. Breath sounds: Normal breath sounds. No stridor. No wheezing, rhonchi or rales. Abdominal: General: There is no distension. Palpations: Abdomen is soft. Tenderness: There is no abdominal tenderness. There is no guarding or rebound. Musculoskeletal: Cervical back: Normal range of motion and neck supple. No edema, erythema, rigidity or tenderness. No pain with movement. Normal range of motion. Lymphadenopathy: Cervical: No cervical adenopathy. Skin: General: Skin is warm and dry. Neurological: Mental Status: She is alert and oriented to person, place, and time. ASSESSMENT/PLAN: 1. Viral illness - ICD9: 079.99, ICD10: B34.9 - Discussed viral etiology and rationale for treatment. - Symptomatic treatment with prn analgesia No evidence of bacterial infection noted on today's exam. Reach out to PACKING AND FINAL ASSEMBLY SUPERVISOR to get a list of safe OTC medications. Patient will follow up with primary care provider as needed. Patient was instructed to immediately proceed to emergency room for any new, worsening, or symptoms lasting longer than anticipated. The patient's clinical presentation is otherwise unremarkable at this time. Based on exam and clinical finding, the patient is stable for discharge. Plan of care was discussed with odin (more content not included)... [facility] 05-18-2023 History of Presen t illness Narrative Subjective HPI Nontoxic-appearing 11-week female presents urgent care chief complaint flulike symptoms. Duration of symptoms 2 days. Associated symptoms sore throat nasal drainage body aches chills headache cough. Did have a few episodes of vomiting. Patient states she is 11 weeks . Sick contacts daughter similar signs and symptoms. Respiratory tract infection. Has not use any OTC medications. Denies any high fevers productive cough chest pain shortness of breath abdominal pain rashes change in bowel or bladder habits. Past medical history prescription medication use allergies reviewed. .Patient presents with: Sore Throat: St, drainage, vomiting, bodyaches MENESES and congestion x 2 days PAST MEDICAL HISTORY Diagnosis Date Allergic rhinitis, cause unspecified Anxiety state Chlamydia 18 years old Mental disorder depression Trichimoniasis 01/03/2020 PAST SURGICAL HISTORY Procedure Laterality Date NONE ALLERGIES Patient has no known allergies. MEDICATIONS PNV without Ca-Iron PsCmplx-FA 29 mg iron- 1 mg chew Take 1 tablet by mouth once daily. aspirin, enteric coated (ASPIRIN, ENTERIC COATED) 81 mg EC tablet Take 1 tablet by mouth once daily. FAMILY HISTORY Problem Relation Age of Onset Alcohol/Drug Mother Alcohol/Drug Father COPD Father Anxiety disorder Sister Bipolar disorder Sister No Known Problems Sister No Known Problems Brother No Known Problems Maternal Grandmother No Known Problems Maternal Grandfather No Known Problems Paternal Grandmother No Known Problems Paternal Grandfather Scoliosis Other runs in family Social History Tobacco Use Smoking status: Former Smokeless tobacco: Current Tobacco comments: vape Vaping Use Vaping Use: current everyday user Substance Use Topics Alcohol use: Yes Comment: rare use Drug use: Not Currently Types: Amphetamines, Marijuana BP 122/78 Pulse 87 Temp 36.7 C (98.1 F) (Tympanic) Resp 18 Wt 80.7 kg (178 lb) LMP 03/22/2023 (Within Days) SpO2 98% BMI 31.53 kg/m Review of Systems Constitutional: Positive for chills and malaise/fatigue. Negative for fever. HENT: Positive for congestion and sore throat. Negative for ear discharge, ear pain and sinus pain. Eyes: Negative for blurred vision, pain, discharge and redness. Respiratory: Positive for cough. Negative for hemoptysis, sputum production, shortness of breath, wheezing and stridor. Cardiovascular: Negative for chest pain. Gastrointestinal: Positive for vomiting. Negative for abdominal pain, diarrhea and nausea. Musculoskeletal: Positive for myalgias. Skin: Negative for itching and rash. Neurological: Positive for headaches. Negative for dizziness. Objective Physical Exam Constitutional: General: She is not in acute distress. Appearance: She is not diaphoretic. HENT: Head: Normocephalic. Jaw: No trismus, tenderness, swelling or pain on movement. Nose: Congestion present. Mouth/Throat: Mouth: Mucous membranes are moist. Pharynx: Oropharynx is clear. Uvula midline. No pharyngeal swelling, oropharyngeal exudate, posterior oropharyngeal erythema or uvula swelling. Eyes: Conjunctiva/sclera: Conjunctivae normal. Pupils: Pupils are equal, round, and reactive to light. Cardiovascular: Rate and Rhythm: Normal rate and regular rhythm. Heart sounds: Normal heart sounds. Pulmonary: Effort: Pulmonary effort is normal. No tachypnea, accessory muscle usage or respiratory distress. Breath sounds: Normal breath sounds. No stridor. No wheezing, rhonchi or rales. Abdominal: General: There is no distension. Palpations: Abdomen is soft. Tenderness: There is no abdominal tenderness. There is no guarding or rebound. Musculoskeletal: Cervical back: Normal range of motion and neck supple. No edema, erythema, rigidity or tenderness. No pain with movement. Normal range of motion. Lymphadenopathy: Cervical: No cervical adenopathy. Skin: General: Skin is warm and dry. Neurological: Mental Status: She is alert and oriented to person, place, and time. ASSESSMENT/PLAN: 1. Viral illness - ICD9: 079.99, ICD10: B34.9 - Discussed viral etiology and rationale for treatment. - Symptomatic treatment with prn analgesia No evidence of bacterial infection noted on today's exam. Reach out to PACKING AND FINAL ASSEMBLY SUPERVISOR to get a list of safe OTC medications. Patient will follow up with primary care provider as needed. Patient was instructed to immediately proceed to emergency room for any new, worsening, or symptoms lasting longer than anticipated. The patient's clinical presentation is otherwise unremarkable at this time. Based on exam and clinical finding, the patient is stable for discharge. Plan of care was discussed with patient. Patient verbalizes understanding and agrees to plan of care. This note was generated using [employer] software. It may contain errors in wording, punctuation, or spelling. - COVID & INFLUENZA A/B NAAT, ROUTINE Dakota Juares APRN.GAS REGULATOR REPAIRER documented in this encounter [facility] 05-18-2023 Miscellaneous Notes Reason for Call: Flu like symptoms Outcome: Home care recommendation given. Care advice reviewed and voiced understanding. Advised to call back and update PCP when office open or send a [employer] message with update. Conferenced to Appointment center to schedule appointment. Reason for Disposition [1] Probable influenza (fever) with no complications AND [2] NOT HIGH RISK Answer Assessment - Initial Assessment Questions 1. WORST SYMPTOM: Body aches 2. ONSET: 05/16 3. COUGH: Mild 4. RESPIRATORY DISTRESS: Denies 5. FEVER: Denies 6. EXPOSURE: Denies 7. FLU VACCINE: Denies 8. HIGH RISK DISEASE: Denies 9. : Yes, 10 weeks 10. OTHER SYMPTOMS: Patient states runny nose, muscle aches, headache, sore throat, congestion, and vomiting Protocols used: Influenza (Flu) - [id number] documented in this encounter [facility] 05-14-2023 Note HNO ID: [id number] Author: Marleen Guerra APRN.CNM Service: ? Author Type: [place] Type: Progress Notes Filed: 05/22/2023 11:39 AM Note Text: INITIAL OB ASSESSMENT OB Provider: Marleen Guerra APRN CNM HPI: Seema is a 27 year old White Female here to establish Obstetrical Care. Patient's last menstrual period was 03/22/2023 (within days). from OB Dating Form. Cycles regular was planned Complaints: None OB History T2 L2 SAB0 IAB0 Ectopic0 Multiple0 Live Births2 Comment: G1- Hyperemsis, PP hemorrhage due to atony w/ transfusion by history. Ijeoma Montalvo MD Previous history: Prior : never History of 4th degree laceration: No History of shoulder dystocia: No History of Hypertensive disorders including pre-eclampsia, chronic hypertension or gestational hypertension: No History of gestational diabetes: No Patient's Risk Screening for delivery: Have you had a prior mccann between 20w and 36w6d?: No MEDICAL/PSYCHOSOCIAL HISTORY: History of hemorrhage or bleeding concerns: Yes - hemorrhage with first child Thyroid Disease: No History of chronic hypertension: No History of pre-existing diabetes: No ABO/RH(D) Date Value Ref Range Status 08/02/2017 A POSITIVE Final No weight on file for this encounter. History of abnormal pap: Yes Prior treatment for cervical dysplasia: N/A. History of STDs: chlamydia, and trich Tobacco use: Vape nicotine Caffeine use: Yes - coffee Drug use: No Alcohol use: No Multivitamin with Folic acid: Yes - Sikhism or heritage: No Would refuse blood transfusion if medically necessary: No Are you currently employed? Yes, Occupation: [employer] Do you have any history of depression, anxiety, PTSD, eating disorders or other mood problems: Yes Do you have any safety concerns or history of traumatic events that you would like to discuss with your provider: No SDOH Screening: How often does this describe you? I don't have enough money to pay my bills: Never Within the past 12 months, have you worried that your food would run out before you had money to buy more: Never In the past 12 months, has lack of reliable transportation kept you from going to medical appointments or work, or from keeping things needed for daily living: Never In the past 12 months, have you had any concerns about having a place to live, or about the condition or quality of your housing: Never Are there any cultural or spiritual needs we should be aware of: No Depression/Anxiety Screening: Was taking Lamictal for BPD, Atarax anxiety, Prozac depression/anxiety. Took for several months but then stopped about a year ago. Was seeing Vidhya Mc APRN, LAMONTE. Feels she is doing well right now. denies symptoms of depression. OB Depression and Anxiety Screening- This Encounter (since 05/13/2023) Over the past 2 weeks have you felt down, depressed, or hopeless? Positive - Further Testing Indicated Over the past two weeks, have you felt little interest or pleasure in doing things?? Positive - Further Testing Indicated I have been able to laugh and see the funny side of things. As much as I always could I have looked forward with enjoyment to things. As much as I ever did I have blamed myself unnecessarily when things went wrong. No, never I have felt scared or panicky for no good reason. No, not at all Things have been getting on top of me. No, most of the time I have coped quite well I have been so unhappy that I have had difficulty sleeping. Not at all I have felt sad or miserable. Not very often I have been so unhappy that I have been crying. Only occasionally The thought of harming myself has occurred to me. Never Feeling nervous, anxious or on edge 0-Not at all Not being able to stop or control worrying 0-Not al all Anxiety Pre-Screening Total (If >/= 3 additional questions will be reviewed) 0 Genetic Screening: Partner present: Yes Patient verbalized knowledge of partner family health history: Yes Do you or your partner have any personal or family history of defects not previously discussed: No Do you have history of a complicated by anomaly, genetic condition, or demise: No ACOG Recommended Screening Screening for early gestational diabetes testing: Criteria for early testing requires elevated BMI plus one other risk factor: No weight on file for this encounter. (risk factor if > than 25 or 23 in Americans) Additional risk factors: None She does not meet ACOG criteria for early gestational DM screening. Screening for low dose aspirin use for the prevention of pre-eclampsia: Low dose aspirin should be considered if the patient has one high or two moderate risk factors: High risk factors: None Moderate risk ractors: Sociodemographic characteristics ( race, low soc (more content not included)... [facility] 05-14-2023 History of Presen t illness Narrative INITIAL OB ASSESSMENT OB Provider: Marleen Guerra APRN CNM HPI: Seema is a 27 year old White Female here to establish Obstetrical Care. Patient's last menstrual period was 03/22/2023 (within days). from OB Dating Form. Cycles regular was planned Complaints: None OB History T2 L2 SAB0 IAB0 Ectopic0 Multiple0 Live Births2 Comment: G1- Hyperemsis, PP hemorrhage due to atony w/ transfusion by history. Ijeoma Montalvo MD Previous history: Prior : never History of 4th degree laceration: No History of shoulder dystocia: No History of Hypertensive disorders including pre-eclampsia, chronic hypertension or gestational hypertension: No History of gestational diabetes: No Patient's Risk Screening for delivery: Have you had a prior mccann between 20w and 36w6d?: No MEDICAL/PSYCHOSOCIAL HISTORY: History of hemorrhage or bleeding concerns: Yes - hemorrhage with first child Thyroid Disease: No History of chronic hypertension: No History of pre-existing diabetes: No ABO/RH(D) Date Value Ref Range Status 08/02/2017 A POSITIVE Final No weight on file for this encounter. History of abnormal pap: Yes Prior treatment for cervical dysplasia: N/A. History of STDs: chlamydia, and trich Tobacco use: Vape nicotine Caffeine use: Yes - coffee Drug use: No Alcohol use: No Multivitamin with Folic acid: Yes - Sikhism or heritage: No Would refuse blood transfusion if medically necessary: No Are you currently employed? Yes, Occupation: [employer] Do you have any history of depression, anxiety, PTSD, eating disorders or other mood problems: Yes Do you have any safety concerns or history of traumatic events that you would like to discuss with your provider: No SDOH Screening: How often does this describe you? I don't have enough money to pay my bills: Never Within the past 12 months, have you worried that your food would run out before you had money to buy more: Never In the past 12 months, has lack of reliable transportation kept you from going to medical appointments or work, or from keeping things needed for daily living: Never In the past 12 months, have you had any concerns about having a place to live, or about the condition or quality of your housing: Never Are there any cultural or spiritual needs we should be aware of: No Depression/Anxiety Screening: Was taking Lamictal for BPD, Atarax anxiety, Prozac depression/anxiety. Took for several months but then stopped about a year ago. Was seeing Vidhya Mc APRN, GAS REGULATOR REPAIRER. Feels she is doing well right now. denies symptoms of depression. OB Depression and Anxiety Screening- This Encounter (since 05/13/2023) Over the past 2 weeks have you felt down, depressed, or hopeless? Positive - Further Testing Indicated Over the past two weeks, have you felt little interest or pleasure in doing things? Positive - Further Testing Indicated I have been able to laugh and see the funny side of things. As much as I always could I have looked forward with enjoyment to things. As much as I ever did I have blamed myself unnecessarily when things went wrong. No, never I have felt scared or panicky for no good reason. No, not at all Things have been getting on top of me. No, most of the time I have coped quite well I have been so unhappy that I have had difficulty sleeping. Not at all I have felt sad or miserable. Not very often I have been so unhappy that I have been crying. Only occasionally The thought of harming myself has occurred to me. Never Feeling nervous, anxious or on edge 0-Not at all Not being able to stop or control worrying 0-Not al all Anxiety Pre-Screening Total (If >/= 3 additional questions will be reviewed) 0 Genetic Screening: Partner present: Yes Patient verbalized knowledge of partner family health history: Yes Do you or your partner have any personal or family history of defects not previously discussed: No Do you have history of a complicated by anomaly, genetic condition, or demise: No ACOG Recommended Screening Screening for early gestational diabetes testing: Criteria for early testing requires elevated BMI plus one other risk factor: No weight on file for this encounter. (risk factor if > than 25 or 23 in Americans) Additional risk factors: None She does not meet ACOG criteria for early gestational DM screening. Screening for low dose aspirin use for the prevention of pre-eclampsia: Low dose aspirin should be considered if the patient has one high or two moderate risk factors: High risk factors: None Moderate risk ractors: Sociodemographic characteristics ( race, low socioeconomic status) She does meet criteria for low dose ASA Marital Status:Committed relationship Partner: Name: Ruy Age: 33 Occupation: Management Professional Gender: Male History of STDs: None PAST MEDICAL HISTORY Diagnosis Date Allergic rhinitis, cause unspecified Anxiety state Chlamydia 18 years old Mental disorder depression Trichimoniasis 01/03/2020 PAST SURGICAL HISTORY Procedure Laterality Date NONE Current Outpatient Medications Medication Sig Dispense Refill hydrOXYzine HCl (ATARAX) 10 mg tablet TAKE 1 TABLET BY MOUTH THREE TIMES A DAY NEEDED FOR ANXIETY (Patient not taking: Reported on 05/14/2023) 270 tablet 0 lamoTRIgine (LAMICTAL) 100 mg tablet Take 1 tablet by mouth once daily. (Patient not taking: Reported on 05/14/2023) 30 tablet 1 FLUoxetine (PROZAC) 40 mg capsule Take 1 capsule by mouth once daily. (Patient not taking: Reported on 05/14/2023) 90 capsule 0 No current facility-administered medications for this visit. Allergies As of Date: 05/14/2023 (No Known Allergies) Fully Assessed 05/14/2023 Does patient have penicillin allergy: No REVIEW OF SYSTEMS: GENERAL: Negative for: Fever or Chills HEENT: Negative for: Headache, Impaired Vision, Ringing in Ears, Nosebleeds NECK: Negative for: Swelling, Pain, Stiffness RESPIRATORY: Negative for: Cough, Shortness of breath, Wheezing GASTROINTESTINAL: Negative for: Heartburn, Constipation, Diarrhea, Blood in stool, Vomiting MUSCULOSKELETAL: Negative for: Muscle or joint pain, stiffness, Joint swelling NEUROLOGIC/PSYCHIATRIC: Negative for: Weakness, Paralysis, Numbness, Tingling, Tremor, Anxiety, Depression, Memory loss SKIN: Negative for: Rash, Itching GENITOURINARY: Negative for: vaginal itching, vaginal discharge, hematuria or dysuria PHYSICAL EXAM: LMP 03/22/2023 BP 98/64 Ht 5' 3 (1.6 m) Wt 178 lb (80.7 kg) LMP 03/22/2023 (Within Days) BMI 31.53 kg/m GENERAL: pleasant in no apparent distress DERMATOLOGY: Normal, without lesions, non-icteric, and non-hirsute NECK: Supple, full range of motion, no adenopathy, and thyroid normal CHEST: Normal inspiratory effort BREAST: soft, non-tender, symmetric, no dominant mass, normal nipple-areolar complex, no lymphadenopathy, and no nipple discharge ABDOMEN: soft, non-tender, and no masses NEURO: alert and oriented x3,exam grossly non-focal PELVIS: External genitalia normal without lesions. Perineal body intact. No vaginal or cervical lesions. Cervix closed. Uterus 10 week size. No adnexal masses or tenderness. Clinical Pelvimetry: Pelvimetry clinically assessed as adequate Limited OB ultrasound exam: single intrauterine , positive cardiac activity, crown-rump length 10w4d, and normal bilateral adnexa LAURIE inconsistent with LMP. LAURIE: 12/06/23 by 10 weeks US at this time. Will follow up at [facility]. OB Risk Screening: Completed, no positive findings documented. ASSESSMENT: 27 year old at 7w4d wks gestational age PLAN: 1) Patient oriented to practice. Patient given new OB orientation folder. Discussed nutrition, folic acid supplementation, dietary guidelines, exercise, smoking, alcohol, caffeine, and drug use. Discussed gestational weight gain guidelines. Discussed routine OB labs including STD/HIV. Discussed how to access Your guide to a health and the [employer]. Discussed aneuploidy and carrier screening. Regarding aneuploidy screening, nuchal translucency/first trimester early anatomy ultrasound and NIPT were discussed. Regarding carrier screening, the myriad screen was discussed. The risks/benefits and limitations of NIPT/aneuploidy screening were reviewed including the potential for false negative and false positive results. We discussed the availability of professional-society guided carrier screening and reviewed the conditions screened and limitations of screening. The availability of genetic counseling was reviewed. Information on aneuploidy/carrier screening was provided. The patient chooses: Aneuploidy screening: chooses to proceed with First trimester early anatomy ultrasound (12-13w6d), NIPT (10 weeks), and If concerns with insurance coverage, patient to call back for sequential order. and Carrier screening: Accepts Discussed hemoglobin electrophoresis. Patient: Accepts Patient offered option of Virtual Visits. Patient prefers in person visits. Reviewed midwifery and monitoring tech services that are available. 2) ASA 81mg PO once daily after 12 weeks 3) LAURIE inconsistent with LMP. 7w4d by LMP, 10w4d by US. LAURIE: 12/06/23 by 10 weeks US at this time. Will follow up at [facility]. Follow up in 2 weeks or sooner rajeev. Marleen Guerra APRN.CNM documented in this encounter [facility] 05-14-2023 Instructions Marleen Guerra APRN.CNM - 05/14/2023 12:58 PM EDT Please select the following link to access the [facility] Your Guide to a Healthy . [email or web address] Start Aspirin 81mg by mouth once daily after 12 weeks documented in this encounter [facility] 03-25-2023 Note HNO ID: [id number] Author: Marlena Parikh APRN.CNP Service: ? Author Type: Nurse Practitioner Type: Progress Notes Filed: 03/25/2023 10:32 AM Note Text: 03/25/2023 Patient presents with: Rash: Bilateral hand SUBJECTIVE: This is a 27 year old that is here today for Above Complaints. ONSET: this AM LOCATION: bilateral hands DURATION: just started CHARACTERISTICS: achy AGGRAVATING FEATURES: nothing ALLEVIATING FEATURES: has not using Recent Illness: no Any recent travel: no Contacts with same rashes: daughter had hand, foot, mouth Hx of eczema: no Hx of psoriasis: no Recent Tanning: no Any new: Lotions: no Detergents: no Soaps: no Make up: no Clothing: no Bedding: no Medications: no Reports throat feels a little sore Denies fevers, mouth or feet lesions. PAST MEDICAL HISTORY Diagnosis Date Allergic rhinitis, cause unspecified Anxiety state Chlamydia 18 years old Mental disorder depression Trichimoniasis 01/03/2020 ALLERGIES Patient has no known allergies. MEDICATIONS Current Outpatient Medications Medication Sig hydrOXYzine HCl (ATARAX) 10 mg tablet TAKE 1 TABLET BY MOUTH THREE TIMES A DAY NEEDED FOR ANXIETY lamoTRIgine (LAMICTAL) 100 mg tablet Take 1 tablet by mouth once daily. FLUoxetine (PROZAC) 40 mg capsule Take 1 capsule by mouth once daily. No current facility-administered medications for this visit. Medications and allergies reviewed by this provider. SOCIAL HISTORY Social History Tobacco Use Smoking status: Former Smokeless tobacco: Current Tobacco comments: vape Vaping Use Vaping Use: current everyday user Substance Use Topics Alcohol use: Yes Comment: rare use Drug use: Not Currently Types: Amphetamines, Marijuana REVIEW OF SYSTEMS All other reviewed and negative other than HPI. OBJECTIVE: BP 116/74 Pulse 84 Temp 36.4 ?C (97.6 ?F) (Tympanic) Resp 16 Wt 79.4 kg (175 lb) LMP 10/05/2022 SpO2 99% BMI 31.00 kg/m? . Vital signs reviewed by this provider. APPEARANCE Well appearing, alert, in no acute distress, well-hydrated, well nourished. EYES PERRLA, conjunctiva and sclera normal. Neck: supple and no adenopathy THROAT normal, no erythema SKIN bilateral hands with a few scattered erythematous, circular papular areas. Less than 1 cm. No drainage observed. otherwise skin color, texture, turgor normal, no suspicious rashes or lesions, HEPATITIS B(2 of 3 - 3-dose series) due on 1995 COVID-19 VACCINE(2 - Pfizer series) due on 08/11/2021 INFLUENZA(1) due on 03/26/2023 PAP TESTING due on 11/18/2025 DTAP,TDAP,TD(5 - Td or Tdap) due on 01/21/2028 HEPATITIS C SCREENING Completed HIV SCREENING Completed HPV VACCINE Aged Out ASSESSMENT/PLAN: 1. Rash of hands - ICD9: 782.1, ICD10: R21 - considering her child just hand hand, foot, mouth this is likely what this is - discussed course of infection, verbalizes understanding - may use OTC tylenol or ibuprofen as needed for pain - discussed the importance of hand hygiene. Discussed can be passes via saliva so should not share drinks with others and recommend not kissing until symptoms and rash have resolved - discussed disinfecting items she has contact with especially if areas start to drain, verbalizes understanding Marlena Oropezalogburak, AUTOMOBILE RADIATOR MECHANIC.GAS REGULATOR REPAIRER Prescription instructions reviewed with patient as applicable. Patient advised if symptoms do not improve or if symptoms worsen sooner, to contact their primary care physician. Potential red flag symptoms discussed with the patient. Reviewed appropriate action plan to take if red flag symptoms occur. Patient agreeable to treatment plan. I spent a total of 20 minutes on the date of the service which included preparing to see the patient, [id number] patient care, completing clinical documentation, obtaining and/or reviewing separately obtained history, performing a medically appropriate examination, and counseling and educating the patient/family/caregiver. [facility] 03-25-2023 History of Presen t illness Narrative 03/25/2023 Patient presents with: Rash: Bilateral hand SUBJECTIVE: This is a 27 year old that is here today for Above Complaints. ONSET: this AM LOCATION: bilateral hands DURATION: just started CHARACTERISTICS: achy AGGRAVATING FEATURES: nothing ALLEVIATING FEATURES: has not using Recent Illness: no Any recent travel: no Contacts with same rashes: daughter had hand, foot, mouth Hx of eczema: no Hx of psoriasis: no Recent Tanning: no Any new: Lotions: no Detergents: no Soaps: no Make up: no Clothing: no Bedding: no Medications: no Reports throat feels a little sore Denies fevers, mouth or feet lesions. PAST MEDICAL HISTORY Diagnosis Date Allergic rhinitis, cause unspecified Anxiety state Chlamydia 18 years old Mental disorder depression Trichimoniasis 01/03/2020 ALLERGIES Patient has no known allergies. MEDICATIONS Current Outpatient Medications Medication Sig hydrOXYzine HCl (ATARAX) 10 mg tablet TAKE 1 TABLET BY MOUTH THREE TIMES A DAY NEEDED FOR ANXIETY lamoTRIgine (LAMICTAL) 100 mg tablet Take 1 tablet by mouth once daily. FLUoxetine (PROZAC) 40 mg capsule Take 1 capsule by mouth once daily. No current facility-administered medications for this visit. Medications and allergies reviewed by this provider. SOCIAL HISTORY Social History Tobacco Use Smoking status: Former Smokeless tobacco: Current Tobacco comments: vape Vaping Use Vaping Use: current everyday user Substance Use Topics Alcohol use: Yes Comment: rare use Drug use: Not Currently Types: Amphetamines, Marijuana REVIEW OF SYSTEMS All other reviewed and negative other than HPI. OBJECTIVE: BP 116/74 Pulse 84 Temp 36.4 C (97.6 F) (Tympanic) Resp 16 Wt 79.4 kg (175 lb) LMP 10/05/2022 SpO2 99% BMI 31.00 kg/m . Vital signs reviewed by this provider. APPEARANCE Well appearing, alert, in no acute distress, well-hydrated, well nourished. EYES PERRLA, conjunctiva and sclera normal. Neck: supple and no adenopathy THROAT normal, no erythema SKIN bilateral hands with a few scattered erythematous, circular papular areas. Less than 1 cm. No drainage observed. otherwise skin color, texture, turgor normal, no suspicious rashes or lesions, HEPATITIS B(2 of 3 - 3-dose series) due on 1995 COVID-19 VACCINE(2 - Pfizer series) due on 08/11/2021 INFLUENZA(1) due on 03/26/2023 PAP TESTING due on 11/18/2025 DTAP,TDAP,TD(5 - Td or Tdap) due on 01/21/2028 HEPATITIS C SCREENING Completed HIV SCREENING Completed HPV VACCINE Aged Out ASSESSMENT/PLAN: 1. Rash of hands - ICD9: 782.1, ICD10: R21 - considering her child just hand hand, foot, mouth this is likely what this is - discussed course of infection, verbalizes understanding - may use OTC tylenol or ibuprofen as needed for pain - discussed the importance of hand hygiene. Discussed can be passes via saliva so should not share drinks with others and recommend not kissing until symptoms and rash have resolved - discussed disinfecting items she has contact with especially if areas start to drain, verbalizes understanding Marlena Parikh APRN.LAMONTE Prescription instructions reviewed with patient as applicable. Patient advised if symptoms do not improve or if symptoms worsen sooner, to contact their primary care physician. Potential red flag symptoms discussed with the patient. Reviewed appropriate action plan to take if red flag symptoms occur. Patient agreeable to treatment plan. I spent a total of 20 minutes on the date of the service which included preparing to see the patient, [id number] patient care, completing clinical documentation, obtaining and/or reviewing separately obtained history, performing a medically appropriate examination, and counseling and educating the patient/family/caregiver. documented in this encounter [facility] 11-25-2022 Note HNO ID: [id number] Author: Marlena Parikh APRN.CNP Service: ? Author Type: Nurse Practitioner Type: Progress Notes Filed: 11/25/2022 12:05 PM Note Text: 11/25/2022 Patient presents with: Conjunctivitis: Woke up with today SUBJECTIVE: This is a 27 year old that is here today for Above Complaints.. Woke up this AM with left eye matted john. Eye has been red and noted some purulent drainage. Reports boyfriend has same thing. Not using any OTC medications. Denies fevers, chills, URI, symptoms, eye pain, itching, or visual changes. Does not wear contacts. PAST MEDICAL HISTORY Diagnosis Date Allergic rhinitis, cause unspecified Anxiety state Chlamydia 18 years old Mental disorder depression Trichimoniasis 01/03/2020 ALLERGIES Patient has no known allergies. MEDICATIONS Current Outpatient Medications Medication Sig hydrOXYzine HCl (ATARAX) 10 mg tablet TAKE 1 TABLET BY MOUTH THREE TIMES A DAY NEEDED FOR ANXIETY lamoTRIgine (LAMICTAL) 100 mg tablet Take 1 tablet by mouth once daily. FLUoxetine (PROZAC) 40 mg capsule Take 1 capsule by mouth once daily. No current facility-administered medications for this visit. Medications and allergies reviewed by this provider. SOCIAL HISTORY Social History Tobacco Use Smoking status: Former Smokeless tobacco: Current Tobacco comments: vape Vaping Use Vaping Use: current everyday user Substance Use Topics Alcohol use: Yes Comment: rare use Drug use: Not Currently Types: Amphetamines, Marijuana REVIEW OF SYSTEMS All other reviewed and negative other than HPI. OBJECTIVE: BP 98/66 Pulse 61 Resp 18 Wt 82.6 kg (182 lb) LMP 10/05/2022 SpO2 96% BMI 32.24 kg/m? . Vital signs reviewed by this provider. APPEARANCE Well appearing, alert, in no acute distress, well-hydrated, well nourished. EYES PERRLA, Conjunctiva erythematous, Clear watery drainage observed. No purulent drainage observed. HEPATITIS B(2 of 3 - 3-dose series) due on 1995 PAP TESTING due on 08/02/2020 COVID-19 VACCINE(2 - Pfizer series) due on 07/07/2021 INFLUENZA(Season Ended) due on 03/26/2023 DTAP,TDAP,TD(5 - Td or Tdap) due on 01/21/2028 HEPATITIS C SCREENING Completed HIV SCREENING Completed ASSESSMENT/PLAN: 1. Bacterial conjunctivitis - ICD9: 372.39, 041.9, ICD10: H10.9 Bacterial - see medication orders - course and contagiousness issues discussed, including hand washing. - Instructed to call if high fever, development of periorbital redness or swelling, eye pain, visual changes, concerns or if symptoms persist. - POLYMYXIN B SULFATE 10,000 UNIT-TRIMETHOPRIM 1 MG/ML EYE DROPS - follow-up if fails to improve over the next 2-3 days Marlena Parikh APRN.LAMONTE Prescription instructions reviewed with patient as applicable. Patient advised if symptoms do not improve or if symptoms worsen sooner, to contact their primary care physician. Potential red flag symptoms discussed with the patient. Reviewed appropriate action plan to take if red flag symptoms occur. Patient agreeable to treatment plan. I spent a total of 20 minutes on the date of the service which included preparing to see the patient, [id number] patient care, completing clinical documentation, obtaining and/or reviewing separately obtained history, performing a medically appropriate examination, counseling and educating the patient/family/caregiver, and ordering medications, tests, or procedures. [facility] 11-25-2022 Instructions Marlena Parikh APRN.LAMONTE - 11/25/2022 11:10 AM EDT CONJUNCTIVITIS ([facility]) BASIC INFORMATION DESCRIPTION: An inflammation of the eyelids' underside and white part of the eye. It is more common in children. FREQUENT SIGNS AND SYMPTOMS: The following symptoms may affect one or both eyes: -Clear, green or yellow discharge from the eye. -After sleeping, crusts on lashes that cause eyelids to stick together. -Eye pain. -Swollen eyelids. -Sensitivity to bright light. -Redness and gritty feeling in the eye. -Intense itching (allergic conjunctivitis only). PREVENTIVE MEASURES: -Wash hands frequently with soap and warm water. -Avoid exposure to eye irritants. Newborns in hospital deliveries are routinely given antibiotic eye drops. -Do not share eyeliners, and discard mascara after 4-6 months. TREATMENT: GENERAL MEASURES: -Treatment of conjunctivitis varies with the cause. -Wash hands often with antiseptic soap, and use paper towels to dry. Don't touch eyes. Gently wipe the discharge from the eye using disposable tissues. -Infections are frequently spread by contaminated fingers, towels, handkerchiefs or wash clothes that have touched the infected eye. -Use warm-water soaks or cold water to reduce discomfort. -Don't use eye makeup. -If the infection does not improve in 2 or 3 days, it may be caused by an insensitive bacteria, virus or allergy. At this point, an long lines operator may need to culture the cause or the conjunctivitis. -Do not wear contact lenses until inflammation is cleared. ACTIVITY: Resume your normal activities as soon as symptoms improve. Contact physician if: -The infection does not improve in 48 hours, despite treatment. -Fever occurs. -Pain increase. -Vision is affected. REPORT: -The infection does not imporve in 48 hours, despite treatment. -Fever occurs -Pain increase -Vision is affected. documented in this encounter [facility] 11-25-2022 History of Presen t illness Narrative 11/25/2022 Patient presents with: Conjunctivitis: Woke up with today SUBJECTIVE: This is a 27 year old that is here today for Above Complaints.. Woke up this AM with left eye matted john. Eye has been red and noted some purulent drainage. Reports boyfriend has same thing. Not using any OTC medications. Denies fevers, chills, URI, symptoms, eye pain, itching, or visual changes. Does not wear contacts. PAST MEDICAL HISTORY Diagnosis Date Allergic rhinitis, cause unspecified Anxiety state Chlamydia 18 years old Mental disorder depression Trichimoniasis 01/03/2020 ALLERGIES Patient has no known allergies. MEDICATIONS Current Outpatient Medications Medication Sig hydrOXYzine HCl (ATARAX) 10 mg tablet TAKE 1 TABLET BY MOUTH THREE TIMES A DAY NEEDED FOR ANXIETY lamoTRIgine (LAMICTAL) 100 mg tablet Take 1 tablet by mouth once daily. FLUoxetine (PROZAC) 40 mg capsule Take 1 capsule by mouth once daily. No current facility-administered medications for this visit. Medications and allergies reviewed by this provider. SOCIAL HISTORY Social History Tobacco Use Smoking status: Former Smokeless tobacco: Current Tobacco comments: vape Vaping Use Vaping Use: current everyday user Substance Use Topics Alcohol use: Yes Comment: rare use Drug use: Not Currently Types: Amphetamines, Marijuana REVIEW OF SYSTEMS All other reviewed and negative other than HPI. OBJECTIVE: BP 98/66 Pulse 61 Resp 18 Wt 82.6 kg (182 lb) LMP 10/05/2022 SpO2 96% BMI 32.24 kg/m . Vital signs reviewed by this provider. APPEARANCE Well appearing, alert, in no acute distress, well-hydrated, well nourished. EYES PERRLA, Conjunctiva erythematous, Clear watery drainage observed. No purulent drainage observed. HEPATITIS B(2 of 3 - 3-dose series) due on 1995 PAP TESTING due on 08/02/2020 COVID-19 VACCINE(2 - Pfizer series) due on 07/07/2021 INFLUENZA(Season Ended) due on 03/26/2023 DTAP,TDAP,TD(5 - Td or Tdap) due on 01/21/2028 HEPATITIS C SCREENING Completed HIV SCREENING Completed ASSESSMENT/PLAN: 1. Bacterial conjunctivitis - ICD9: 372.39, 041.9, ICD10: H10.9 Bacterial - see medication orders - course and contagiousness issues discussed, including hand washing. - Instructed to call if high fever, development of periorbital redness or swelling, eye pain, visual changes, concerns or if symptoms persist. - POLYMYXIN B SULFATE 10,000 UNIT-TRIMETHOPRIM 1 MG/ML EYE DROPS - follow-up if fails to improve over the next 2-3 days Marlena Parikh APRN.LAMONTE Prescription instructions reviewed with patient as applicable. Patient advised if symptoms do not improve or if symptoms worsen sooner, to contact their primary care physician. Potential red flag symptoms discussed with the patient. Reviewed appropriate action plan to take if red flag symptoms occur. Patient agreeable to treatment plan. I spent a total of 20 minutes on the date of the service which included preparing to see the patient, [id number] patient care, completing clinical documentation, obtaining and/or reviewing separately obtained history, performing a medically appropriate examination, counseling and educating the patient/family/caregiver, and ordering medications, tests, or procedures. documented in this encounter [facility] 11-04-2022 Miscellaneous Notes Patient notified and voiced understanding. Patient that she is doing much better. Still some drainage. Kim Mitchell MA Called and left a voicemail for the Patient to call back and ask for a nurse to receive the providers message. Susana Shane RN Please let patient know her mono test is negative. documented in this encounter [facility] 10-29-2022 Note HNO ID: [id number] Author: Dc Olivares APRN.LAMONTE Service: ? Author Type: Nurse Practitioner Type: Progress Notes Filed: 10/29/2022 3:00 PM Note Text: Chief Complaint Patient presents with: Cough Sore Throat HPI Seema Monteiro is a 27 year old female who presents here today for Above Complaints.. Patient presents with sore throat and cough x1 month. Patient was seen by EC and diagnosed with a viral illness and told to follow up with PCP if no improvement. Patient also reports body aches, fatigue, tired. Denies fever and rash. Past medical history, appointments, medications, allergies reviewed. Previous Medical History PAST MEDICAL HISTORY Diagnosis Date Allergic rhinitis, cause unspecified Anxiety state Chlamydia 18 years old Mental disorder depression Trichimoniasis 01/03/2020 Previous Surgical History PAST SURGICAL HISTORY Procedure Laterality Date NONE Family History FAMILY HISTORY Problem Relation Age of Onset Alcohol/Drug Mother Alcohol/Drug Father COPD Father Anxiety disorder Sister Bipolar disorder Sister No Known Problems Sister No Known Problems Brother No Known Problems Maternal Grandmother No Known Problems Maternal Grandfather No Known Problems Paternal Grandmother No Known Problems Paternal Grandfather Scoliosis Other runs in family Patient Allergies ALLERGIES No Known Allergies Current Medications Current Outpatient Medications on File Prior to Visit Medication Sig fluticasone (FLONASE) 50 mcg/actuation nasal spray Use 2 Sprays in each nostril once daily. Rinse mouth after use. hydrOXYzine HCl (ATARAX) 10 mg tablet TAKE 1 TABLET BY MOUTH THREE TIMES A DAY NEEDED FOR ANXIETY lamoTRIgine (LAMICTAL) 100 mg tablet Take 1 tablet by mouth once daily. FLUoxetine (PROZAC) 40 mg capsule Take 1 capsule by mouth once daily. No current facility-administered medications on file prior to visit. Social History Social History Tobacco Use Smoking status: Former Smokeless tobacco: Current Tobacco comments: vape Vaping Use Vaping Use: current everyday user Substance Use Topics Alcohol use: Yes Comment: rare use Drug use: Not Currently Types: Amphetamines, Marijuana Review of Symptoms REVIEW OF SYSTEMS SEE HPI EXAM: BP 120/74 Pulse 80 Temp 36.7 ?C (98 ?F) Resp 16 Wt 83.9 kg (185 lb) LMP 10/05/2022 SpO2 98% BMI 32.77 kg/m? General Appearance: Well appearing, alert, in no acute distress, well-hydrated, well nourished.. Nose/Sinuses: Positive findings: mucosa erythematous and swollen, purulent rhinorrhea. Oropharynx: Positive findings: moderate oropharyngeal erythema. Neck: Positive findings: superficial cervical and posterior cervical adenopathy. Lungs: Lungs clear to auscultation. No wheezing, rhonchi, rales.. Heart: RRR without murmur, gallop, or rubs. No ectopy. Health Maintenance List HEPATITIS B(2 of 3 - 3-dose series) due on 1995 PAP TESTING due on 08/02/2020 COVID-19 VACCINE(2 - Pfizer series) due on 07/07/2021 INFLUENZA(Season Ended) due on 03/26/2023 DTAP,TDAP,TD(5 - Td or Tdap) due on 01/21/2028 HEPATITIS C SCREENING Completed HIV SCREENING Completed ASSESSMENT/PLAN: 1. Pharyngitis, unspecified etiology - ICD9: 462, ICD10: J02.9 (primary diagnosis) - suspect bacterial - Amoxicillin for 10 days. - Discussed supportive care treatment with fluids, rest and analgesia. - The patient may also use OTC decongestants prn, OTC cough and cold meds as needed, warm salt water gargles, throat lozenges and/or OTC throat spray as needed, and nasal saline gtts and suction prn. - The patient should follow up in 3-5 days if symptoms persist or worsen - AMOXICILLIN 500 MG CAPSULE - MONOTEST, INFECTIOUS MONO 2. Bacterial sinusitis - ICD9: 473.9, 041.9, ICD10: J32.9, B96.89 - Will begin treatment with Amoxicillin for 10 days - The patient should also be given for the first 5-7 days of treatmenOTC decongestants prn, OTC cough and cold meds as needed, warm salt water gargles, throat lozenges and/or OTC throat spray as needed, and nasal saline gtts and suction prnt. - Supportive care with plenty of fluids, rest, and analgesia prn. - Follow up in 3-5 days if symptoms persist or worsen. - AMOXICILLIN 500 MG CAPSULE Dc Olivares APRN.CNP [facility] 10-29-2022 Miscellaneous Notes Pt called and is notified of providers results. Pt voices understanding. Susana Shane RN Please let patient know her strep test is negative. documented in this encounter [facility] 10-29-2022 Instructions Dc Olivares APRN.CNP - 10/29/2022 2:59 PM EDT Start amoxicillin Complete mono test Follow up in 5 days if no improvement documented in this encounter [facility] 10-29-2022 History of Presen t illness Narrative Chief Complaint Patient presents with: Cough Sore Throat HPI Seema Monteiro is a 27 year old female who presents here today for Above Complaints.. Patient presents with sore throat and cough x1 month. Patient was seen by EC and diagnosed with a viral illness and told to follow up with PCP if no improvement. Patient also reports body aches, fatigue, tired. Denies fever and rash. Past medical history, appointments, medications, allergies reviewed. Previous Medical History PAST MEDICAL HISTORY Diagnosis Date Allergic rhinitis, cause unspecified Anxiety state Chlamydia 18 years old Mental disorder depression Trichimoniasis 01/03/2020 Previous Surgical History PAST SURGICAL HISTORY Procedure Laterality Date NONE Family History FAMILY HISTORY Problem Relation Age of Onset Alcohol/Drug Mother Alcohol/Drug Father COPD Father Anxiety disorder Sister Bipolar disorder Sister No Known Problems Sister No Known Problems Brother No Known Problems Maternal Grandmother No Known Problems Maternal Grandfather No Known Problems Paternal Grandmother No Known Problems Paternal Grandfather Scoliosis Other runs in family Patient Allergies ALLERGIES No Known Allergies Current Medications Current Outpatient Medications on File Prior to Visit Medication Sig fluticasone (FLONASE) 50 mcg/actuation nasal spray Use 2 Sprays in each nostril once daily. Rinse mouth after use. hydrOXYzine HCl (ATARAX) 10 mg tablet TAKE 1 TABLET BY MOUTH THREE TIMES A DAY NEEDED FOR ANXIETY lamoTRIgine (LAMICTAL) 100 mg tablet Take 1 tablet by mouth once daily. FLUoxetine (PROZAC) 40 mg capsule Take 1 capsule by mouth once daily. No current facility-administered medications on file prior to visit. Social History Social History Tobacco Use Smoking status: Former Smokeless tobacco: Current Tobacco comments: vape Vaping Use Vaping Use: current everyday user Substance Use Topics Alcohol use: Yes Comment: rare use Drug use: Not Currently Types: Amphetamines, Marijuana Review of Symptoms REVIEW OF SYSTEMS SEE HPI EXAM: BP 120/74 Pulse 80 Temp 36.7 C (98 F) Resp 16 Wt 83.9 kg (185 lb) LMP 10/05/2022 SpO2 98% BMI 32.77 kg/m General Appearance: Well appearing, alert, in no acute distress, well-hydrated, well nourished.. Nose/Sinuses: Positive findings: mucosa erythematous and swollen, purulent rhinorrhea. Oropharynx: Positive findings: moderate oropharyngeal erythema. Neck: Positive findings: superficial cervical and posterior cervical adenopathy. Lungs: Lungs clear to auscultation. No wheezing, rhonchi, rales.. Heart: RRR without murmur, gallop, or rubs. No ectopy. Health Maintenance List HEPATITIS B(2 of 3 - 3-dose series) due on 1995 PAP TESTING due on 08/02/2020 COVID-19 VACCINE(2 - Pfizer series) due on 07/07/2021 INFLUENZA(Season Ended) due on 03/26/2023 DTAP,TDAP,TD(5 - Td or Tdap) due on 01/21/2028 HEPATITIS C SCREENING Completed HIV SCREENING Completed ASSESSMENT/PLAN: 1. Pharyngitis, unspecified etiology - ICD9: 462, ICD10: J02.9 (primary diagnosis) - suspect bacterial - Amoxicillin for 10 days. - Discussed supportive care treatment with fluids, rest and analgesia. - The patient may also use OTC decongestants prn, OTC cough and cold meds as needed, warm salt water gargles, throat lozenges and/or OTC throat spray as needed, and nasal saline gtts and suction prn. - The patient should follow up in 3-5 days if symptoms persist or worsen - AMOXICILLIN 500 MG CAPSULE - MONOTEST, INFECTIOUS MONO 2. Bacterial sinusitis - ICD9: 473.9, 041.9, ICD10: J32.9, B96.89 - Will begin treatment with Amoxicillin for 10 days - The patient should also be given for the first 5-7 days of treatmenOTC decongestants prn, OTC cough and cold meds as needed, warm salt water gargles, throat lozenges and/or OTC throat spray as needed, and nasal saline gtts and suction prnt. - Supportive care with plenty of fluids, rest, and analgesia prn. - Follow up in 3-5 days if symptoms persist or worsen. - AMOXICILLIN 500 MG CAPSULE Dc Olivares APRN.GAS REGULATOR REPAIRER documented in this encounter [facility] 10-29-2022 Miscellaneous Notes Patient call in for sore throat, cough x 1 month. Nurse Triage assessment completed with protocol recommending for disposition of See PCP in 24 hours. Care advice reviewed with patient, patient stated understanding. Patient scheduled for in house visit with Dc Olivares today Reason for Disposition [1] Pus on tonsils (back of throat) AND [2] fever AND [3] swollen neck lymph nodes ( glands ) Answer Assessment - Initial Assessment Questions 1. ONSET: Patient state that throat has been hurting for a month 2. SEVERITY: Patient states that it feels like someone is sticking a hot branding iron in throat. 3. STREP EXPOSURE: Denies 4. VIRAL SYMPTOMS: Cough, Mucous (green), stuffy nose 5. FEVER: Denies fever 6. PUS ON THE TONSILS: Pus on Tonsils 7. OTHER SYMPTOMS: Hard to breath when she coughs Protocols used: Sore [id number] TC to pt. LM to call office, ask for triage nurse. Pt needs to seen in the office for her systems. If unable to come on Wednesday10/30/22. She needs to reschedule. Shila Schaefer LPN documented in this encounter [facility] 10-08-2022 Note HNO ID: [id number] Author: Karen Solis PA-C Service: ? Author Type: Physician Selling Specialist Type: Progress Notes Filed: 10/08/2022 3:32 PM Note Text: This note was created using [employer]. Subjective Seema Monteiro is a 27 year old female. HPI Presents with sore throat, headache, body aches over the past day. She was exposed to COVID at work this week. Denies vomiting or diarrhea. No chest pain or shortness of breath. No cough. Denies runny nose or congestion. She has been using cough drops [id number] for the throat pain. Review of Systems Constitutional: Positive for chills and fatigue. Negative for fever. HENT: Positive for sore throat. Negative for congestion, ear pain and rhinorrhea. Eyes: Negative. Respiratory: Negative. Cardiovascular: Negative. Gastrointestinal: Negative. Genitourinary: Negative. Musculoskeletal: Positive for myalgias. Skin: Negative. Neurological: Positive for headaches. All other systems reviewed and are negative. PAST MEDICAL HISTORY Diagnosis Date Allergic rhinitis, cause unspecified Anxiety state Chlamydia 18 years old Mental disorder depression Trichimoniasis 01/03/2020 Current Outpatient Medications Medication Sig Dispense Refill hydrOXYzine HCl (ATARAX) 10 mg tablet TAKE 1 TABLET BY MOUTH THREE TIMES A DAY NEEDED FOR ANXIETY 270 tablet 0 FLUoxetine (PROZAC) 40 mg capsule Take 1 capsule by mouth once daily. 90 capsule 0 fluticasone (FLONASE) 50 mcg/actuation nasal spray Use 2 Sprays in each nostril once daily. Rinse mouth after use. 16 mL 0 lamoTRIgine (LAMICTAL) 100 mg tablet Take 1 tablet by mouth once daily. 30 tablet 1 No current facility-administered medications for this visit. PAST SURGICAL HISTORY Procedure Laterality Date NONE FAMILY HISTORY Problem Relation Age of Onset Alcohol/Drug Mother Alcohol/Drug Father COPD Father Anxiety disorder Sister Bipolar disorder Sister No Known Problems Sister No Known Problems Brother No Known Problems Maternal Grandmother No Known Problems Maternal Grandfather No Known Problems Paternal Grandmother No Known Problems Paternal Grandfather Scoliosis Other runs in family Social History Tobacco Use Smoking status: Former Smokeless tobacco: Current Tobacco comments: vape Vaping Use Vaping Use: current everyday user Substance Use Topics Alcohol use: Yes Comment: rare use Drug use: Not Currently Types: Amphetamines, Marijuana Objective BP 124/82 Pulse 81 Temp 36.6 ?C (97.8 ?F) (Tympanic) Resp 18 Wt 82.7 kg (182 lb 6.4 oz) LMP 10/05/2022 SpO2 97% BMI 32.31 kg/m? Physical Exam Vitals reviewed. Constitutional: Appearance: Normal appearance. HENT: Head: Normocephalic and atraumatic. Right Ear: Tympanic membrane, ear canal and external ear normal. Left Ear: Tympanic membrane, ear canal and external ear normal. Nose: Nose normal. Mouth/Throat: Mouth: Mucous membranes are moist. Pharynx: Pharyngeal swelling and posterior oropharyngeal erythema present. No oropharyngeal exudate or uvula swelling. Tonsils: No tonsillar exudate or tonsillar abscesses. 1+ on the right. 1+ on the left. Cardiovascular: Rate and Rhythm: Normal rate and regular rhythm. Heart sounds: Normal heart sounds. Pulmonary: Effort: Pulmonary effort is normal. Breath sounds: Normal breath sounds. Musculoskeletal: Cervical back: Neck supple. Lymphadenopathy: Cervical: No cervical adenopathy. Skin: General: Skin is warm and dry. Findings: No rash. Neurological: Mental Status: She is alert. Assessment and Plan ASSESSMENT/PLAN: 1. Throat pain - ICD9: 784.1, ICD10: R07.0 (primary diagnosis) Strep negative. - STREP A MOLECULAR (POC) 2. Suspected 2019 novel coronavirus infection - ICD9: V01.79, ICD10: Z20.822 COVID testing pending. Discussed quarantine. Discussed supportive care. Discussed red flags to be seen again. Patient agreeable with plan. - COVID WITH FLUA+B, ROUTINE Karen Solis PA-C [facility] 10-08-2022 History of Presen t illness Narrative This note was created using [employer]. Subjective Seema Monteiro is a 27 year old female. HPI Presents with sore throat, headache, body aches over the past day. She was exposed to COVID at work this week. Denies vomiting or diarrhea. No chest pain or shortness of breath. No cough. Denies runny nose or congestion. She has been using cough drops [id number] for the throat pain. Review of Systems Constitutional: Positive for chills and fatigue. Negative for fever. HENT: Positive for sore throat. Negative for congestion, ear pain and rhinorrhea. Eyes: Negative. Respiratory: Negative. Cardiovascular: Negative. Gastrointestinal: Negative. Genitourinary: Negative. Musculoskeletal: Positive for myalgias. Skin: Negative. Neurological: Positive for headaches. All other systems reviewed and are negative. PAST MEDICAL HISTORY Diagnosis Date Allergic rhinitis, cause unspecified Anxiety state Chlamydia 18 years old Mental disorder depression Trichimoniasis 01/03/2020 Current Outpatient Medications Medication Sig Dispense Refill hydrOXYzine HCl (ATARAX) 10 mg tablet TAKE 1 TABLET BY MOUTH THREE TIMES A DAY NEEDED FOR ANXIETY 270 tablet 0 FLUoxetine (PROZAC) 40 mg capsule Take 1 capsule by mouth once daily. 90 capsule 0 fluticasone (FLONASE) 50 mcg/actuation nasal spray Use 2 Sprays in each nostril once daily. Rinse mouth after use. 16 mL 0 lamoTRIgine (LAMICTAL) 100 mg tablet Take 1 tablet by mouth once daily. 30 tablet 1 No current facility-administered medications for this visit. PAST SURGICAL HISTORY Procedure Laterality Date NONE FAMILY HISTORY Problem Relation Age of Onset Alcohol/Drug Mother Alcohol/Drug Father COPD Father Anxiety disorder Sister Bipolar disorder Sister No Known Problems Sister No Known Problems Brother No Known Problems Maternal Grandmother No Known Problems Maternal Grandfather No Known Problems Paternal Grandmother No Known Problems Paternal Grandfather Scoliosis Other runs in family Social History Tobacco Use Smoking status: Former Smokeless tobacco: Current Tobacco comments: vape Vaping Use Vaping Use: current everyday user Substance Use Topics Alcohol use: Yes Comment: rare use Drug use: Not Currently Types: Amphetamines, Marijuana Objective BP 124/82 Pulse 81 Temp 36.6 C (97.8 F) (Tympanic) Resp 18 Wt 82.7 kg (182 lb 6.4 oz) LMP 10/05/2022 SpO2 97% BMI 32.31 kg/m Physical Exam Vitals reviewed. Constitutional: Appearance: Normal appearance. HENT: Head: Normocephalic and atraumatic. Right Ear: Tympanic membrane, ear canal and external ear normal. Left Ear: Tympanic membrane, ear canal and external ear normal. Nose: Nose normal. Mouth/Throat: Mouth: Mucous membranes are moist. Pharynx: Pharyngeal swelling and posterior oropharyngeal erythema present. No oropharyngeal exudate or uvula swelling. Tonsils: No tonsillar exudate or tonsillar abscesses. 1+ on the right. 1+ on the left. Cardiovascular: Rate and Rhythm: Normal rate and regular rhythm. Heart sounds: Normal heart sounds. Pulmonary: Effort: Pulmonary effort is normal. Breath sounds: Normal breath sounds. Musculoskeletal: Cervical back: Neck supple. Lymphadenopathy: Cervical: No cervical adenopathy. Skin: General: Skin is warm and dry. Findings: No rash. Neurological: Mental Status: She is alert. Assessment and Plan ASSESSMENT/PLAN: 1. Throat pain - ICD9: 784.1, ICD10: R07.0 (primary diagnosis) Strep negative. - STREP A MOLECULAR (POC) 2. Suspected 2019 novel coronavirus infection - ICD9: V01.79, ICD10: Z20.822 COVID testing pending. Discussed quarantine. Discussed supportive care. Discussed red flags to be seen again. Patient agreeable with plan. - COVID WITH FLUA+B, ROUTINE Karen oSlis PA-C documented in this encounter [facility] 09-24-2022 Hospital Discharg e instructions Patient Education 09/24/2022 09:53:52 Headache, Unspecified Headache, Unspecified A number of things can cause headaches. The cause of your headache isn t clear. But it doesn t seem to be a sign of any serious illness. Headache affects almost everyone at some time. It is the most common reason people miss days from work or school. You could have a tension headache or a migraine headache. Stress can cause a tension headache. This can happen if you tense the muscles of your shoulders, neck, and scalp without knowing it. If this stress lasts long enough, you may develop a tension headache. It is not clear why migraines occur, but certain things called triggers can raise the risk of having a migraine attack. Migraine triggers may include emotional stress or depression, or by hormone changes during the menstrual cycle. Other triggers include control pills and other medicines, alcohol or caffeine, foods with tyramine (such as aged cheese, wine), eyestrain, weather changes, missed meals, and lack of sleep or oversleeping. Other causes of headache include: Viral illness with high fever Head injury with concussion Sinus, ear, or throat infection Dental pain and jaw joint (TMJ) pain More serious but less common causes of headache include stroke, brain hemorrhage, brain tumor, meningitis, and encephalitis. Home care Follow these tips when taking care of yourself at home: Don t drive yourself home if you were given pain medicine for your headache. Instead, have someone else drive you home. Try to sleep when you get home. You should feel much better when you wake up. Apply heat to the back of your neck to ease a neck muscle spasm. Take care of a migraine headache by putting an ice pack on your forehead or at the base of your skull. If you have nausea or vomiting, eat a light diet until your headache eases. If you have a migraine headache, use sunglasses when in the daylight or around bright indoor lighting until your symptoms get better. Bright glaring light can make this type of headache worse. Follow-up care Follow up with your healthcare provider, or as advised. Talk with your provider if you have frequent headaches. He or she can help figure out a treatment plan. By knowing the earliest signs of headache, and starting treatment right away, you may be able to stop the pain yourself. When to seek medical advice Call your healthcare provider right away if any of these occur: Your head pain suddenly gets worse after sexual intercourse or strenuous activity Your head pain doesn t get better within 24 hours You aren t able to keep liquids down (repeated vomiting) Fever of 100.4 F (38 C) or higher, or as directed by your healthcare provider Stiff neck Extreme drowsiness, confusion, or fainting Dizziness or dizziness with spinning sensation (vertigo) Weakness in an arm or leg or one side of your face You have trouble talking or seeing 4097-9902 [employer]. [address] [place] [address]. All rights reserved. This information is not intended as a substitute for professional medical care. Always follow your healthcare professional's instructions. Follow Up Care 09/24/2022 09:21:10 With:[address] [place] [address] or Address:Unknown When:Within 1 Week(s) Comments:Follow-up as needed if your symptoms persist. With:MARLENA PARIKH Address: [address] [place] [phone] Business (1) When:1-2 days Comments:Follow-up as needed if your symptoms persist.Rest in a cool, dark, quiet room.Use Tylenol, Advil or Aleve for headaches as needed.Use Zofran as prescribed for nausea and vomiting as needed.Return to ED if symptoms worsen. [facility] 09-24-2022 Note Discharge Instructions Thank you for allowing [facility] to assist you with your healthcare needs. The following is important discharge information regarding your hospital visit. Diagnosis from Today's Visit Headache What to Do Next Instructions from Your Care Team No qualifying data available. Post Acute Orders No qualifying data available. You Need to Schedule the Following Appointments Follow Up [place] [address] [address] or When In 1 week Why: Follow-up as needed if your symptoms persist. Follow Up with MARLENA PARIKH When Within 1-2 days Why: Follow-up as needed if your symptoms persist. Rest in a cool, dark, quiet room. Use Tylenol, Advil or Aleve for headaches as needed. Use Zofran as prescribed for nausea and vomiting as needed. Return to ED if symptoms worsen. Where: [address], [place] [id number]- [phone] Business (1) Allergies NKA Medications Please ask your primary doctor or pharmacist before taking any other medication not listed, including over the counter drugs, herbal medications, vitamins and or supplements as they may interact with your home medications. What How Much When Instructions Last Dose New ondansetron (Zofran 4 mg oral tablet) 1 tab(s) by mouth Every 6 hours as needed for Nausea/Vomiting Duration: 3 Days Printed Prescription Unchanged albuterol (albuterol MDI (90 mcg/ inh) CFC free inhalation aerosol) Unchanged FLUoxetine (PROzac) by mouth Once a day Unchanged hydrOXYzine (Vistaril) by mouth Four (4) times a day Please take this list to your next doctor s visit. Bring all medications you take, including over the counter medications, herbals and other supplements with you to your doctor s visit. Patients and families are reminded to discard old lists and to update any records with all medication providers or retail pharmacies. Education Materials Headache, Unspecified A number of things can cause headaches. The cause of your headache isn t clear. But it doesn t seem to be a sign of any serious illness. Headache affects almost everyone at some time. It is the most common reason people miss days from work or school. You could have a tension headache or a migraine headache. Stress can cause a tension headache. This can happen if you tense the muscles of your shoulders, neck, and scalp without knowing it. If this stress lasts long enough, you may develop a tension headache. It is not clear why migraines occur, but certain things called triggers can raise the risk of having a migraine attack. Migraine triggers may include emotional stress or depression, or by hormone changes during the menstrual cycle. Other triggers include control pills and other medicines, alcohol or caffeine, foods with tyramine (such as aged cheese, wine), eyestrain, weather changes, missed meals, and lack of sleep or oversleeping. Other causes of headache include: Viral illness with high fever Head injury with concussion Sinus, ear, or throat infection Dental pain and jaw joint (TMJ) pain More serious but less common causes of headache include stroke, brain hemorrhage, brain tumor, meningitis, and encephalitis. Home care Follow these tips when taking care of yourself at home: Don t drive yourself home if you were given pain medicine for your headache. Instead, have someone else drive you home. Try to sleep when you get home. You should feel much better when you wake up. Apply heat to the back of your neck to ease a neck muscle spasm. Take care of a migraine headache by putting an ice pack on your forehead or at the base of your skull. If you have nausea or vomiting, eat a light diet until your headache eases. If you have a migraine headache, use sunglasses when in the daylight or around bright indoor lighting until your symptoms get better. Bright glaring light can make this type of headache worse. Follow-up care Follow up with your healthcare provider, or as advised. Talk with your provider if you have frequent headaches. He or she can help figure out a treatment plan. By knowing the earliest signs of headache, and starting treatment right away, you may be able to stop the pain yourself. When to seek medical advice Call your healthcare provider right away if any of these occur: Your head pain suddenly gets worse after sexual intercourse or strenuous activity Your head pain doesn t get better within 24 hours You aren t able to keep liquids down (repeated vomiting) Fever of 100.4 F (38 C) or higher, or as directed by your healthcare provider Stiff neck Extreme drowsiness, confusion, or fainting Dizziness or dizziness with spinning sensation (vertigo) Weakness in an arm or leg or one side of your face You have trouble talking or seeing [id number] [employer]. [address] [place] [address]. All rights reserved. This information is not intended as a substitute for professional medical care. Always follow your healthcare professional's instructions. Additional Information VACCINATE! IT SAVES LIVES! Members of the community who have not yet received the COVID-19 vaccine and would like to receive it can visit one of [facility] vaccine clinics. There are many vaccine clinic locations within the [facility]. For locations and available times, please visit [email or web address] [email or web address] It is important to note that some COVID mobile vaccine clinics are held outdoors and may be canceled in rainy or stormy conditions. To learn more about pediatric vaccinations (ages 5-11), we invite you to visit the [facility] webpage. [email or web address]/p [email or web address]-Gefdt-Peyladqhqfj-Freq zbksko-Vvvkw-Pxopjqkez.html To learn more about the COVID-19 vaccine, we invite you to visit the CDC website for a list of frequently asked questions. https://www.cdc.gov/coronavirus/ 2019-ncov/vaccines/faq.html [facility] Patient Portal Access Instructions: Stay connected with your healthcare team and access your personal medical information anytime with the [facility] Patient Portal. If you would like a full copy of your medical records please contact the [facility] Medical Records Department Wednesday through Wednesday between 8a.m. and 4:30p.m. Please follow the directions below to access the portal: 1.Access the email account you provided upon registration to the [facility].2.Look for an invitation email from [facility].3.Open the email and access the invitation link: Accept Invitation to [facility]4.Fill in the required garcia to create your account. Sign into [email or web address] with your username and password that you created in the above steps to stay up to date. You can then view a summary of results, a summary of your visits, and the ability to download your summaries to your computer or send the information securely to a physician. Remember that your healthcare information is confidential, so carefully consider who you will allow to register on the [facility] Patient Portal for access to your information. You can also access the [facility] Patient Portal on the [employer]. Simply click on Health Records under Health Data and then click on the [employer] logo. HOW TO SAFELY DISPOSE OF PRESCRIPTION MEDICATIONS Please use one of the following methods to safely dispose of your unused medications. 1.Use a drug disposal kit: the drug disposal pouch allows you to safely discard your old and unused drugs. Ask your nurse to give you one when you are discharged.2.Visit a local take-back location: Many local pharmacies and police departments have programs that collect old and unwanted prescription drugs. Call your local pharmacy or go to http://bit.ly/7J7Fr6o to find one close to you.3.Make use of household items: Use cat litter or old coffee grounds to dispose medications if other options are not available. Mix your drugs with these household products, seal them in an airtight container and throw it into the garbage. Call [facility]: [phone] to be sure your drugs can be disposed of in this way. Some medicines may require a different approach.4.Never flush your medications down the toilet. IF YOU HAVE BEEN PRESCRIBED AN OPIOIDS FOR PAIN If you have been prescribed an opioid (such as hydrocodone, oxycodone or morphine), it is critical to understand the possible side effects and risks of opioid pain medications. Even when taken as directed, opioids can have several side effects including: Tolerance, meaning you might need to take more of a medication for the same pain relief. Nausea, vomiting and/or constipation. Sleepiness, dizziness, dry mouth, confusion, depression or itching. Physical dependence, meaning you have withdrawal symptoms when a medication is stopped ? this can develop within a few days. KNOW YOUR RESPONSIBILITIES It is important to know exactly how much and how often to take the opioid pain medications you are prescribed. Never take opioids in higher amounts or more often than prescribed. Do not combine opioids with alcohol or other drugs that cause drowsiness, such as benzodiazepines, also known as benzos, including diazepam and alprazolam, muscle relaxants or sleep aids. Never sell or share prescription opioids. This is illegal. Store opioids in a secure place and out of reach of others (including children, family, friends and visitors). The last page(s) of this document has been signed and retained as a CHART COPY Signatures Patient Education Materials Headache, Unspecified Medication Leaflets My discharge plan and instructions have been reviewed and explained to me and ICAYETANO LINZY P understand my current condition and have read and understand these discharge instructions. I have received a written copy of the plan/instructions. If I have questions, I am aware that I should contact my doctor. Patient/[employer] Site [employer] Technician Signature: Date/Time: Relationship to Patient: Witness Name/Signature: Date/Time: [facility] 09-21-2022 Note HNO ID: [id number] Author: MAURIICO Caldwell Service: Behavioral Health Outpatient Group Author Type: Counselor Type: Progress Notes Filed: 09/22/2022 3:22 PM Note Text: *This service is provided virtually via [employer]. DBT SKILLS WEEKLY GROUP (OUTPATIENT PROGRAM) PROGRESS NOTE SERVICE DATE: 09/21/22 SERVICE TIME: 5:00pm Pt did not show for session. She was outreached via email and encouraged to attend group for her last two sessions, with discharge scheduled for 10/05/22. [facility] 09-21-2022 History of Presen t illness Narrative *This service is provided virtually via [facility]. DBT SKILLS WEEKLY GROUP (OUTPATIENT PROGRAM) PROGRESS NOTE SERVICE DATE: 09/21/22 SERVICE TIME: 5:00pm Pt did not show for session. She was outreached via email and encouraged to attend group for her last two sessions, with discharge scheduled for 10/05/22. documented in this encounter [facility] 09-14-2022 Note HNO ID: [id number] Author: MAURICIO Caldwell Service: Behavioral Health IOP (Intensive Outpatient Program) Author Type: Counselor Type: Progress Notes Filed: 09/14/2022 6:34 PM Note Text: Summary: Cancellation DBT SKILLS WEEKLY GROUP (OUTPATIENT PROGRAM) PROGRESS NOTE SERVICE DATE: 09/14/22 SERVICE TIME: 5:00pm RESPONSE: Pt was observed to connect to group while driving. She was asked to disconnect from group due to concerns about safety with multitasking, it being distracting and contrary to group guidelines. Pt was emailed link to reconnect. She emailed that she couldn't reconnect due to driving her daughter to her father's house and it being a long drive. [facility] 09-14-2022 History of Presen t illness Narrative Summary: Cancellation DBT SKILLS WEEKLY GROUP (OUTPATIENT PROGRAM) PROGRESS NOTE SERVICE DATE: 09/14/22 SERVICE TIME: 5:00pm RESPONSE: Pt was observed to connect to group while driving. She was asked to disconnect from group due to concerns about safety with multitasking, it being distracting and contrary to group guidelines. Pt was emailed link to reconnect. She emailed that she couldn't reconnect due to driving her daughter to her father's house and it being a long drive. documented in this encounter [facility] 09-07-2022 Note HNO ID: [id number] Author: Gracy Santana, Therapist Service: Behavioral Health Outpatient Group Author Type: Therapist Type: Progress Notes Filed: 09/07/2022 6:38 PM Note Text: Summary: DBT Skills virtual group *This service is provided virtually via [employer]. DBT SKILLS WEEKLY GROUP (OUTPATIENT PROGRAM) PROGRESS NOTE SERVICE DATE: 09/07/22 SERVICE TIME: 5:00-6:30pm BEHAVIOR: Appearance: Casually Attired Attitude: Cooperative Affect: Anxious/tense Mood: Anxious and Pleasant Orientation: Oriented to person, place and time Thought:: Logical Speech: Normal Eye Contact: Intermittent Describe Change Noted Throughout the Day: NA see above. GROUP THERAPY: Process Therapy Start Time: 5:00 pm Total Time: 90 minutes # of Patients: 7 THERAPEUTIC FOCUS: DBT Skills Weekly Aftercare Group PROBLEM(S) ADDRESSED: -Mental health issues INTERVENTIONS: Mindfulness practice implemented and processed. Check-in to include assessing for changes in mood, urges, functioning this week, with group discussion/education focused on mindfulness to current thoughts. RESPONSE: Appears attentive, participative and willing. Pt was tearful as she described feeling depressed recently, stating that she lost someone in February, with whom she'd been close. She recognized continuing to grieve, and being triggered by seeing posts about him on social media. Pt was an active participant throughout skills discussion and application with appearing distracted occasionally. Patient Affirms Safety. Patient reaffirmed Safety Plan and can stay safe from harm. PLAN: Continue DBT Skills Program and follow individualized treatment plan. Continue with individual therapist and medication provider as necessary while in program. *Co-Facilitated with: Gracy Santana, [facility] 09-07-2022 History of Presen t illness Narrative Summary: DBT Skills virtual group *This service is provided virtually via [employer]. DBT SKILLS WEEKLY GROUP (OUTPATIENT PROGRAM) PROGRESS NOTE SERVICE DATE: 09/07/22 SERVICE TIME: 5:00-6:30pm BEHAVIOR: Appearance: Casually Attired Attitude: Cooperative Affect: Anxious/tense Mood: Anxious and Pleasant Orientation: Oriented to person, place and time Thought:: Logical Speech: Normal Eye Contact: Intermittent Describe Change Noted Throughout the Day: NA see above. GROUP THERAPY: Process Therapy Start Time: 5:00 pm Total Time: 90 minutes # of Patients: 7 THERAPEUTIC FOCUS: DBT Skills Weekly Aftercare Group PROBLEM(S) ADDRESSED: -Mental health issues INTERVENTIONS: Mindfulness practice implemented and processed. Check-in to include assessing for changes in mood, urges, functioning this week, with group discussion/education focused on mindfulness to current thoughts. RESPONSE: Appears attentive, participative and willing. Pt was tearful as she described feeling depressed recently, stating that she lost someone in February, with whom she'd been close. She recognized continuing to grieve, and being triggered by seeing posts about him on social media. Pt was an active participant throughout skills discussion and application with appearing distracted occasionally. Patient Affirms Safety. Patient reaffirmed Safety Plan and can stay safe from harm. PLAN: Continue DBT Skills Program and follow individualized treatment plan. Continue with individual therapist and medication provider as necessary while in program. *Co-Facilitated with: MAURICIO Bravo documented in this encounter [facility] 08-31-2022 Note HNO ID: [id number] Author: MAURICIO Caldwell Service: Behavioral Health Outpatient Group Author Type: Counselor Type: Progress Notes Filed: 08/31/2022 6:30 PM Note Text: Summary: DBT Skills virtual group *This service is provided virtually via [employer]. DBT SKILLS WEEKLY GROUP (OUTPATIENT PROGRAM) PROGRESS NOTE SERVICE DATE: August 31, 2022 SERVICE TIME: 5:00-6:30pm BEHAVIOR: Appearance: Casually Attired Attitude: Cooperative Affect: Anxious/tense Mood: Depressed and Anxious Orientation: Oriented to person, place and time Thought:: Logical Speech: Normal Eye Contact: Intermittent Describe Change Noted Throughout the Day: NA see above. GROUP THERAPY: Process Therapy Start Time: 5:00 pm Total Time: 90 minutes # of Patients: 10 THERAPEUTIC FOCUS: DBT Skills Weekly Group Module: Interpersonal Effectiveness Week 5 Homework review, module/goal review and processing, take away from session/module remarked. PROBLEM(S) ADDRESSED: -Mental health issues INTERVENTIONS: Mindfulness practice implemented and processed. Homework review discussion around FAST and self-respect. Reviewed mood diary to assess for concerns related to medications, SI, changes in mood and daily functioning. Module skills and goals reviewed and processed with application to members' individualized treatment goals. RESPONSE: Review of diary card indicates: n/a Appears attentive, participative and willing. Pt participated in review of homework and skill education and shared that she feels as though others don't hear her repeatedly and this causes her to feel like a ghost. She appeared willing to look at this and ways to be heard. Patient Affirms Safety. Patient reaffirmed Safety Plan and can stay safe from harm. Pt confirmed attendance for next week 09/07/22. PLAN: Continue DBT Skills Program and follow individualized treatment plan. Continue with individual therapist and medication provider as necessary while in program. Co-Facilitated by Marcia Hinojosa, [facility] Gracy Santana, [facility] 08-31-2022 History of Presen t illness Narrative Summary: DBT Skills virtual group *This service is provided virtually via [employer]. DBT SKILLS WEEKLY GROUP (OUTPATIENT PROGRAM) PROGRESS NOTE SERVICE DATE: August 31, 2022 SERVICE TIME: 5:00-6:30pm BEHAVIOR: Appearance: Casually Attired Attitude: Cooperative Affect: Anxious/tense Mood: Depressed and Anxious Orientation: Oriented to person, place and time Thought:: Logical Speech: Normal Eye Contact: Intermittent Describe Change Noted Throughout the Day: NA see above. GROUP THERAPY: Process Therapy Start Time: 5:00 pm Total Time: 90 minutes # of Patients: 10 THERAPEUTIC FOCUS: DBT Skills Weekly Group Module: Interpersonal Effectiveness Week 5 Homework review, module/goal review and processing, take away from session/module remarked. PROBLEM(S) ADDRESSED: -Mental health issues INTERVENTIONS: Mindfulness practice implemented and processed. Homework review discussion around FAST and self-respect. Reviewed mood diary to assess for concerns related to medications, SI, changes in mood and daily functioning. Module skills and goals reviewed and processed with application to members' individualized treatment goals. RESPONSE: Review of diary card indicates: n/a Appears attentive, participative and willing. Pt participated in review of homework and skill education and shared that she feels as though others don't hear her repeatedly and this causes her to feel like a ghost. She appeared willing to look at this and ways to be heard. Patient Affirms Safety. Patient reaffirmed Safety Plan and can stay safe from harm. Pt confirmed attendance for next week 09/07/22. PLAN: Continue DBT Skills Program and follow individualized treatment plan. Continue with individual therapist and medication provider as necessary while in program. Co-Facilitated by ARIES Caldwell & MAURICIO Bravo documented in this encounter [facility] 08-24-2022 Note HNO ID: [id number] Author: MAURICIO Caldwell Service: Behavioral Health Outpatient Group Author Type: Counselor Type: Progress Notes Filed: 08/24/2022 6:28 PM Note Text: Summary: DBT Skills virtual group *This service is provided virtually via [employer]. DBT SKILLS WEEKLY GROUP (OUTPATIENT PROGRAM) PROGRESS NOTE SERVICE DATE: August 24, 2022 SERVICE TIME: 5:00-6:30pm BEHAVIOR: Appearance: Casually Attired Attitude: Cooperative Affect: Appropriate Mood: Anxious Orientation: Oriented to person, place and time Thought:: Logical Speech: Normal Eye Contact: Intermittent Describe Change Noted Throughout the Day: None, see above. GROUP THERAPY: Process Therapy Start Time: 5:00 pm Total Time: 90 minutes # of Patients: 11 THERAPEUTIC FOCUS: DBT Skills Weekly Group Module: Interpersonal Effectiveness, Week 4 Homework review, new skill education and processing, take away from session remarked. PROBLEM(S) ADDRESSED: -Mental health issues INTERVENTIONS: Mindfulness practice implemented and processed. Homework review discussion around GIVE and validation. Reviewed mood diary to assess for concerns related to medications, SI, changes in mood and daily functioning. New Skill Education presented and discussed around FAST and self-respect. RESPONSE: Review of diary card indicates: n/a; pt did not send in diary card. Appears attentive, participative and willing. Pt participated in review of homework and skill education and shared that she had a stressful week, stating that her child was sick and she got into an argument with her boyfriend. She reflected upon some communication challenges in their relationship and appeared open to feedback, as well as, redirection back to the skill focus. Patient Affirms Safety. Patient reaffirmed Safety Plan and can stay safe from harm. Pt confirmed attendance for next week 08/31/22. PLAN: Continue DBT Skills Program and follow individualized treatment plan. Continue with individual therapist and medication provider as necessary while in program. *Co-Facilitated by Marcia Hinojosa, [facility] AND Gracy Santana, [facility] 08-24-2022 History of Presen t illness Narrative Summary: DBT Skills virtual group *This service is provided virtually via [employer]. DBT SKILLS WEEKLY GROUP (OUTPATIENT PROGRAM) PROGRESS NOTE SERVICE DATE: August 24, 2022 SERVICE TIME: 5:00-6:30pm BEHAVIOR: Appearance: Casually Attired Attitude: Cooperative Affect: Appropriate Mood: Anxious Orientation: Oriented to person, place and time Thought:: Logical Speech: Normal Eye Contact: Intermittent Describe Change Noted Throughout the Day: None, see above. GROUP THERAPY: Process Therapy Start Time: 5:00 pm Total Time: 90 minutes # of Patients: 11 THERAPEUTIC FOCUS: DBT Skills Weekly Group Module: Interpersonal Effectiveness, Week 4 Homework review, new skill education and processing, take away from session remarked. PROBLEM(S) ADDRESSED: -Mental health issues INTERVENTIONS: Mindfulness practice implemented and processed. Homework review discussion around GIVE and validation. Reviewed mood diary to assess for concerns related to medications, SI, changes in mood and daily functioning. New Skill Education presented and discussed around FAST and self-respect. RESPONSE: Review of diary card indicates: n/a; pt did not send in diary card. Appears attentive, participative and willing. Pt participated in review of homework and skill education and shared that she had a stressful week, stating that her child was sick and she got into an argument with her boyfriend. She reflected upon some communication challenges in their relationship and appeared open to feedback, as well as, redirection back to the skill focus. Patient Affirms Safety. Patient reaffirmed Safety Plan and can stay safe from harm. Pt confirmed attendance for next week 08/31/22. PLAN: Continue DBT Skills Program and follow individualized treatment plan. Continue with individual therapist and medication provider as necessary while in program. *Co-Facilitated by MAURICIO Caldwell-Carlota & MAURICIO Bravo documented in this encounter [facility] 08-17-2022 Note HNO ID: [id number] Author: MAURICIO Caldwell Service: Behavioral Health Outpatient Group Author Type: Therapist Type: Progress Notes Filed: 08/17/2022 6:37 PM Note Text: *This service is provided virtually via [employer]. DBT SKILLS WEEKLY GROUP (OUTPATIENT PROGRAM) PROGRESS NOTE SERVICE DATE: August 17, 2022 SERVICE TIME: 5:00-6:30pm BEHAVIOR: Appearance: Casually Attired Attitude: Cooperative Affect: Anxious/tense Mood: Anxious and Pleasant Orientation: Oriented to person, place and time Thought:: Logical Speech: Normal Eye Contact: Intermittent Describe Change Noted Throughout the Day: NA see above. GROUP THERAPY: Process Therapy Start Time: 5:00 pm Total Time: 90 minutes # of Patients: 9 THERAPEUTIC FOCUS: DBT Skills Weekly Group Module: Interpersonal Homework review, new skill education and processing, take away from session remarked. PROBLEM(S) ADDRESSED: -Mental health issues INTERVENTIONS: Mindfulness practice implemented and processed. Homework review discussion around BENJAMÍN. Reviewed mood diary to assess for concerns related to medications, SI, changes in mood and daily functioning. New Skill Education presented and discussed around GIVE and validation. RESPONSE: Appears attentive, participative and willing. Pt. participated in review of homework and skill education, and shared: that focusing in mindfulness is challenging stating that she's easily distracted. Patient Affirms Safety. Patient reaffirmed Safety Plan and can stay safe from harm. PLAN: Continue DBT Skills Program and follow individualized treatment plan. Continue with individual therapist and medication provider as necessary while in program. *Co-Facilitated with: MAURICIO Bravo [facility] 08-17-2022 History of Presen t illness Narrative *This service is provided virtually via [employer]. DBT SKILLS WEEKLY GROUP (OUTPATIENT PROGRAM) PROGRESS NOTE SERVICE DATE: August 17, 2022 SERVICE TIME: 5:00-6:30pm BEHAVIOR: Appearance: Casually Attired Attitude: Cooperative Affect: Anxious/tense Mood: Anxious and Pleasant Orientation: Oriented to person, place and time Thought:: Logical Speech: Normal Eye Contact: Intermittent Describe Change Noted Throughout the Day: NA see above. GROUP THERAPY: Process Therapy Start Time: 5:00 pm Total Time: 90 minutes # of Patients: 9 THERAPEUTIC FOCUS: DBT Skills Weekly Group Module: Interpersonal Homework review, new skill education and processing, take away from session remarked. PROBLEM(S) ADDRESSED: -Mental health issues INTERVENTIONS: Mindfulness practice implemented and processed. Homework review discussion around BENJAMÍN. Reviewed mood diary to assess for concerns related to medications, SI, changes in mood and daily functioning. New Skill Education presented and discussed around GIVE and validation. RESPONSE: Appears attentive, participative and willing. Pt. participated in review of homework and skill education, and shared: that focusing in mindfulness is challenging stating that she's easily distracted. Patient Affirms Safety. Patient reaffirmed Safety Plan and can stay safe from harm. PLAN: Continue DBT Skills Program and follow individualized treatment plan. Continue with individual therapist and medication provider as necessary while in program. *Co-Facilitated with: MAURICIO Bravo documented in this encounter [facility] 08-12-2022 Influenza virus A and B RNA and SARS-CoV-2 (COVID-19) N gene panel KAUR+probe (Resp) COVID 19 RESULT: SARS-CoV-2 (Agent of COVID-19) Not Detected by RT-PCR or equivalent method. This test was developed and its performance characteristics determined by [facility]'s [facility] Pathology and Laboratory Medicine [place]. This test has been authorized by FDA under an Emergency Use Authorization (EUA). This test has been validated in accordance with the FDA's Guidance Document Policy for Diagnostics Testing in Laboratories Certified to Perform High Complexity Testing under CLIA prior to Emergency use Authorization for Coronavirus Disease 2019 during the Public Health Emergency issued on September 23, 2019. Test performed by [facility], [facility]ology and Laboratory Medicine [place], [facility] [place] [address]. INFLUENZA A PCR: Negative for Influenza A by RT-PCR INFLUENZA B PCR: Negative for Influenza B by RT-PCR [facility] documented as of this encounter (statuses as of 10/21/2021) [facility]07-13-2018 History of Past illness Narrative* Problem Noted Date Resolved Date Uterine size date discrepancy , third t rimester 02/04/2018 03/31/2018 Overview: 02/04/18 - growth US at [facility] shows 2702g(11%) with AFV of 13.2 - KJ Positive GBS test 01/24/2018 03/31/2018 Breech presentation with problem 12/2201/20/2018 Overview: 12/22/17 - Breech on exam, breech tilt exercises reviewed. Maria Elena Barbosa APRN.CNM Rubella non-immune status, antepartum 08/04/2017 03/31/2018 Encounter for supervision of other normal , first trimester 08/02/2017 03/31/2018 Mild hyperemesis gravidarum 08/02/201712/2017 Overview: August 02, 2017 11 lb wt gain since . Vit b 6, unisom and phenergan and PNV at this time. Ijeoma Montalvo MD History of hemorrhage, currently preg nant 08/02/2017 03/31/2018 Overview: H/o PP hemohage w/ transfuion after , was induced. History of depression 08/02/2017 03/31/2018 Overview: Several years ago,before first . Was on meds for a year or so. She feels she might have had mild PP depression but wasn't put on meds for this. Ijeoma Montalvo MD documented as of this encounter (statuses as of 11/12/2021) [facility] History of Past illness Narrative* Problem Noted Date Resolved Date Uterine size date discrepancy , third t ester 02/04/2018 03/31/2018 Overview: 02/04/18 - growth US at [facility] shows 2702g(11%) with AFV of 13.2 - KJ Positive GBS test 01/24/2018 03/31/2018 Breech presentation with problem 12/2201/20/2018 Overview: 12/22/17 - Breech on exam, breech tilt exercises reviewed. Maria Elena Barbosa APRN.CNM Rubella non-immune status, antepartum 08/04/2017 03/31/2018 Encounter for supervision of other normal , first trimester 08/02/2017 03/31/2018 Mild hyperemesis gravidarum 08/02/2017 03/0 12/2017 Overview: August 02, 2017 11 lb wt gain since . Vit b 6, unisom and phenergan and PNV at this time. Ijeoma Montalvo MD History of hemorrhage, currently preg nant 08/02/2017 03/31/2018 Overview: H/o PP hemohage w/ transfuion after , was induced. History of depression 08/02/2017 03/31/2018 Overview: Several years ago,before first . Was on meds for a year or so. She feels she might have had mild PP depression but wasn't put on meds for this. Ijeoma Montalvo MD documented as of this encounter (statuses as of 12/30/2021) [facility] History of Past illness Narrative* Problem Noted Date Resolved Date Uterine size date discrepancy , third t rimester 02/04/2018 03/31/2018 Overview: 02/04/18 - growth US at [facility] shows 2702g(11%) with AFV of 13.2 - KJ Positive GBS test 01/24/2018 03/31/2018 Breech presentation with problem 12/2201/20/2018 Overview: 12/22/17 - Breech on exam, breech tilt exercises reviewed. Maria Elena Barbosa APRN.CNM Rubella non-immune status, antepartum 08/04/2017 03/31/2018 Encounter for supervision of other normal , first trimester 08/02/2017 03/31/2018 Mild hyperemesis gravidarum 08/02/201712/2017 Overview: August 02, 2017 11 lb wt gain since . Vit b 6, unisom and phenergan and PNV at this time. Ijeoma Montalvo MD History of hemorrhage, currently preg nant 08/02/2017 03/31/2018 Overview: H/o PP hemohage w/ transfuion after , was induced. History of depression 08/02/2017 03/31/2018 Overview: Several years ago,before first . Was on meds for a year or so. She feels she might have had mild PP depression but wasn't put on meds for this. Ijeoma Montalvo MD documented as of this encounter (statuses as of 12/30/2021) [facility] History of Past illness Narrative* Problem Noted Date Resolved Date Uterine size date discrepancy , third t rimester 02/04/2018 03/31/2018 Overview: 02/04/18 - growth US at [facility] shows 2702g(11%) with AFV of 13.2 - KJ Positive GBS test 01/24/2018 03/31/2018 Breech presentation with problem 12/2201/20/2018 Overview: 12/22/17 - Breech on exam, breech tilt exercises reviewed. Maria Elena Barbosa APRN.ARIANA Rubella non-immune status, antepartum 08/04/2017 03/31/2018 Encounter for supervision of other normal , first trimester 08/02/2017 03/31/2018 Mild hyperemesis gravidarum 08/02/2017 03/12/2017 Overview: August 02, 2017 11 lb wt gain since . Vit b 6, unisom and phenergan and PNV at this time. Ijeoma Montalvo MD History of hemorrhage, currently preg nant 08/02/2017 03/31/2018 Overview: H/o PP hemohage w/ transfuion after , was induced. History of depression 08/02/2017 03/31/2018 Overview: Several years ago,before first . Was on meds for a year or so. She feels she might have had mild PP depression but wasn't put on meds for this. Ijeoma Montalvo MD documented as of this encounter (statuses as of 01/18/2022) [facility] History of Past illness Narrative* Problem Noted Date Resolved Date Uterine size date discrepancy , third t rimester 02/04/2018 03/31/2018 Overview: 02/04/18 - growth US at [facility] shows 2702g(11%) with AFV of 13.2 - KJ Positive GBS test 01/24/2018 03/31/2018 Breech presentation with problem 12/2201/20/2018 Overview: 12/22/17 - Breech on exam, breech tilt exercises reviewed. Maria Elena Barbosa APRN.ARIANA Rubella non-immune status, antepartum 08/04/2017 03/31/2018 Encounter for supervision of other normal , first trimester 08/02/2017 03/31/2018 Mild hyperemesis gravidarum 08/02/201712/2017 Overview: August 02, 2017 11 lb wt gain since . Vit b 6, unisom and phenergan and PNV at this time. Ijeoma Montalvo MD History of hemorrhage, currently preg nant 08/02/2017 03/31/2018 Overview: H/o PP hemohage w/ transfuion after , was induced. History of depression 08/02/2017 03/31/2018 Overview: Several years ago,before first . Was on meds for a year or so. She feels she might have had mild PP depression but wasn't put on meds for this. Ijeoma Montalvo MD documented as of this encounter (statuses as of 02/02/2022) [facility] History of Past illness Narrative* Problem Noted Date Resolved Date Uterine size date discrepancy , third t rimester 02/04/2018 03/31/2018 Overview: 02/04/18 - growth US at [facility] shows 2702g(11%) with AFV of 13.2 - KJ Positive GBS test 01/24/2018 03/31/2018 Breech presentation with problem 12/2201/20/2018 Overview: 12/22/17 - Breech on exam, breech tilt exercises reviewed. Maria Elena Barbosa APRN.CNM Rubella non-immune status, antepartum 08/04/2017 03/31/2018 Encounter for supervision of other normal , first trimester 08/02/2017 03/31/2018 Mild hyperemesis gravidarum 08/02/201712/2017 Overview: August 02, 2017 11 lb wt gain since . Vit b 6, unisom and phenergan and PNV at this time. Ijeoma Montalvo MD History of hemorrhage, currently preg nant 08/02/2017 03/31/2018 Overview: H/o PP hemohage w/ transfuion after , was induced. History of depression 08/02/2017 03/31/2018 Overview: Several years ago,before first . Was on meds for a year or so. She feels she might have had mild PP depression but wasn't put on meds for this. Ijeoma Montalvo MD documented as of this encounter (statuses as of 02/03/2022) [facility] History of Past illness Narrative* Problem Noted Date Resolved Date Uterine size date discrepancy , third t ester 02/04/2018 03/31/2018 Overview: 02/04/18 - growth US at [facility] shows 2702g(11%) with AFV of 13.2 - KJ Positive GBS test 01/24/2018 03/31/2018 Breech presentation with problem 12/2201/20/2018 Overview: 12/22/17 - Breech on exam, breech tilt exercises reviewed. Maria Elena Barbosa APRN.CNM Rubella non-immune status, antepartum 08/04/2017 03/31/2018 Encounter for supervision of other normal , first trimester 08/02/2017 03/31/2018 Mild hyperemesis gravidarum 08/02/2017 03/0 12/2017 Overview: August 02, 2017 11 lb wt gain since . Vit b 6, unisom and phenergan and PNV at this time. Ijeoma Montalvo MD History of hemorrhage, currently preg nant 08/02/2017 03/31/2018 Overview: H/o PP hemohage w/ transfuion after , was induced. History of depression 08/02/2017 03/31/2018 Overview: Several years ago,before first . Was on meds for a year or so. She feels she might have had mild PP depression but wasn't put on meds for this. Ijeoma Montalvo MD documented as of this encounter (statuses as of 02/11/2022) [facility] History of Past illness Narrative* Problem Noted Date Resolved Date Uterine size date discrepancy , third t rimester 02/04/2018 03/31/2018 Overview: 02/04/18 - growth US at [facility] shows 2702g(11%) with AFV of 13.2 - KJ Positive GBS test 01/24/2018 03/31/2018 Breech presentation with problem 12/2201/20/2018 Overview: 12/22/17 - Breech on exam, breech tilt exercises reviewed. Maria Elena Barbosa APRN.CNM Rubella non-immune status, antepartum 08/04/2017 03/31/2018 Encounter for supervision of other normal , first trimester 08/02/2017 03/31/2018 Mild hyperemesis gravidarum 08/02/2017 03/12/2017 Overview: August 02, 2017 11 lb wt gain since . Vit b 6, unisom and phenergan and PNV at this time. Ijeoma Montalvo MD History of hemorrhage, currently preg nant 08/02/2017 03/31/2018 Overview: H/o PP hemohage w/ transfuion after , was induced. History of depression 08/02/2017 03/31/2018 Overview: Several years ago,before first . Was on meds for a year or so. She feels she might have had mild PP depression but wasn't put on meds for this. Ijeoma Montalvo MD documented as of this encounter (statuses as of 03/09/2022) [facility] History of Past illness Narrative* Problem Noted Date Resolved Date Uterine size date discrepancy , third t rimester 02/04/2018 03/31/2018 Overview: 02/04/18 - growth US at [facility] shows 2702g(11%) with AFV of 13.2 - KJ Positive GBS test 01/24/2018 03/31/2018 Breech presentation with problem 12/2201/20/2018 Overview: 12/22/17 - Breech on exam, breech tilt exercises reviewed. Maria Elena Barbosa APRN.ARIANA Rubella non-immune status, antepartum 08/04/2017 03/31/2018 Encounter for supervision of other normal , first trimester 08/02/2017 03/31/2018 Mild hyperemesis gravidarum 08/02/2017 03/12/2017 Overview: August 02, 2017 11 lb wt gain since . Vit b 6, unisom and phenergan and PNV at this time. Ijeoma Montalvo MD History of hemorrhage, currently preg nant 08/02/2017 03/31/2018 Overview: H/o PP hemohage w/ transfuion after , was induced. History of depression 08/02/2017 03/31/2018 Overview: Several years ago,before first . Was on meds for a year or so. She feels she might have had mild PP depression but wasn't put on meds for this. Ijeoma Montalvo MD documented as of this encounter (statuses as of 03/23/2022) [facility] History of Past illness Narrative* Problem Noted Date Resolved Date Uterine size date discrepancy , third t rimester 02/04/2018 03/31/2018 Overview: 02/04/18 - growth US at [facility] shows 2702g(11%) with AFV of 13.2 - KJ Positive GBS test 01/24/2018 03/31/2018 Breech presentation with problem 12/2201/20/2018 Overview: 12/22/17 - Breech on exam, breech tilt exercises reviewed. Maria Elena Barbosa APRN.ARIANA Rubella non-immune status, antepartum 08/04/2017 03/31/2018 Encounter for supervision of other normal , first trimester 08/02/2017 03/31/2018 Mild hyperemesis gravidarum 08/02/201712/2017 Overview: August 02, 2017 11 lb wt gain since . Vit b 6, unisom and phenergan and PNV at this time. Ijeoma Montalvo MD History of hemorrhage, currently preg nant 08/02/2017 03/31/2018 Overview: H/o PP hemohage w/ transfuion after , was induced. History of depression 08/02/2017 03/31/2018 Overview: Several years ago,before first . Was on meds for a year or so. She feels she might have had mild PP depression but wasn't put on meds for this. Ijeoma Montalvo MD documented as of this encounter (statuses as of 03/24/2022) [facility] History of Past illness Narrative* Problem Noted Date Resolved Date Uterine size date discrepancy , third t rimester 02/04/2018 03/31/2018 Overview: 02/04/18 - growth US at [facility] shows 2702g(11%) with AFV of 13.2 - KJ Positive GBS test 01/24/2018 03/31/2018 Breech presentation with problem 12/2201/20/2018 Overview: 12/22/17 - Breech on exam, breech tilt exercises reviewed. Maria Elena Barbosa APRN.CNM Rubella non-immune status, antepartum 08/04/2017 03/31/2018 Encounter for supervision of other normal , first trimester 08/02/2017 03/31/2018 Mild hyperemesis gravidarum 08/02/201712/2017 Overview: August 02, 2017 11 lb wt gain since . Vit b 6, unisom and phenergan and PNV at this time. Ijeoma Montalvo MD History of hemorrhage, currently preg nant 08/02/2017 03/31/2018 Overview: H/o PP hemohage w/ transfuion after , was induced. History of depression 08/02/2017 03/31/2018 Overview: Several years ago,before first . Was on meds for a year or so. She feels she might have had mild PP depression but wasn't put on meds for this. Ijeoma Montalvo MD documented as of this encounter (statuses as of 03/25/2022) [facility] History of Past illness Narrative* Problem Noted Date Resolved Date Uterine size date discrepancy , third t ester 02/04/2018 03/31/2018 Overview: 02/04/18 - growth US at [facility] shows 2702g(11%) with AFV of 13.2 - KJ Positive GBS test 01/24/2018 03/31/2018 Breech presentation with problem 12/2201/20/2018 Overview: 12/22/17 - Breech on exam, breech tilt exercises reviewed. Maria Elena Barbosa APRN.CNM Rubella non-immune status, antepartum 08/04/2017 03/31/2018 Encounter for supervision of other normal , first trimester 08/02/2017 03/31/2018 Mild hyperemesis gravidarum 08/02/2017 03/12/2017 Overview: August 02, 2017 11 lb wt gain since . Vit b 6, unisom and phenergan and PNV at this time. Ijeoma Montalvo MD History of hemorrhage, currently preg nant 08/02/2017 03/31/2018 Overview: H/o PP hemohage w/ transfuion after , was induced. History of depression 08/02/2017 03/31/2018 Overview: Several years ago,before first . Was on meds for a year or so. She feels she might have had mild PP depression but wasn't put on meds for this. Ijeoma Montalvo MD documented as of this encounter (statuses as of 04/13/2022) [facility]07-13-2018 History of Past illness Narrative* Problem Noted Date Resolved Date Uterine size date discrepancy , third t rimester 02/04/2018 03/31/2018 Overview: 02/04/18 - growth US at [facility] shows 2702g(11%) with AFV of 13.2 - KJ Positive GBS test 01/24/2018 03/31/2018 Breech presentation with problem 12/2201/20/2018 Overview: 12/22/17 - Breech on exam, breech tilt exercises reviewed. Maria Elena Barbosa, [employer].CNM Rubella non-immune status, antepartum 08/04/2017 03/31/2018 Encounter for supervision of other normal , first trimester 08/02/2017 03/31/2018 Mild hyperemesis gravidarum 08/02/2017 03/12/2017 Overview: August 02, 2017 11 lb wt gain since . Vit b 6, unisom and phenergan and PNV at this time. Ijeoma Montalvo MD History of hemorrhage, currently preg nant 08/02/2017 03/31/2018 Overview: H/o PP hemohage w/ transfuion after , was induced. History of depression 08/02/2017 03/31/2018 Overview: Several years ago,before first . Was on meds for a year or so. She feels she might have had mild PP depression but wasn't put on meds for this. Ijeoma Montalvo MD documented as of this encounter (statuses as of 05/08/2022) [facility]07-13-2018 History of Past illness Narrative* Problem Noted Date Resolved Date Uterine size date discrepancy , third t rimester 02/04/2018 03/31/2018 Overview: 7/13/18 - growth US at [facility] shows 2702g(11%) with AFV of 13.2 - KJ Positive GBS test 01/24/2018 03/31/2018 Breech presentation with problem 12/2201/20/2018 Overview: 12/22/17 - Breech on exam, breech tilt exercises reviewed. Maria Elena Barbosa APRN.CNM Rubella non-immune status, antepartum 08/04/2017 03/31/2018 Encounter for supervision of other normal , first trimester 08/02/2017 03/31/2018 Mild hyperemesis gravidarum 08/02/2017 03/12/2017 Overview: August 02, 2017 11 lb wt gain since . Vit b 6, unisom and phenergan and PNV at this time. Ijeoma Montalvo MD History of hemorrhage, currently preg nant 08/02/2017 03/31/2018 Overview: H/o PP hemohage w/ transfuion after , was induced. History of depression 08/02/2017 03/31/2018 Overview: Several years ago,before first . Was on meds for a year or so. She feels she might have had mild PP depression but wasn't put on meds for this. Ijeoma Montalvo MD documented as of this encounter (statuses as of 06/13/2022) [facility]07-13[facility]2018 History of Past illness Narrative* Problem Noted Date Resolved Date Uterine size date discrepancy , third t rimester 02/04/2018 03/31/2018 Overview: 02/04/18 - growth US at [facility] shows 2702g(11%) with AFV of 13.2 - KJ Positive GBS test 01/24/2018 03/31/2018 Breech presentation with problem 12/2201/20/2018 Overview: 12/22/17 - Breech on exam, breech tilt exercises reviewed. Maria Elena Barbosa APRN.CNM Rubella non-immune status, antepartum 08/04/2017 03/31/2018 Encounter for supervision of other normal , first trimester 08/02/2017 03/31/2018 Mild hyperemesis gravidarum 08/02/201712/2017 Overview: August 02, 2017 11 lb wt gain since . Vit b 6, unisom and phenergan and PNV at this time. Ijeoma Montalvo MD History of hemorrhage, currently preg nant 08/02/2017 03/31/2018 Overview: H/o PP hemohage w/ transfuion after , was induced. History of depression 08/02/2017 03/31/2018 Overview: Several years ago,before first . Was on meds for a year or so. She feels she might have had mild PP depression but wasn't put on meds for this. Ijeoma Montalvo MD documented as of this encounter (statuses as of 06/20/2022) [facility]-13[facility]2018 History of Past illness Narrative* Problem Noted Date Resolved Date Uterine size date discrepancy , third t ester 02/04/2018 03/31/2018 Overview: 02/04/18 - growth US at [facility] shows 2702g(11%) with AFV of 13.2 - KJ Positive GBS test 01/24/2018 03/31/2018 Breech presentation with problem 12/2201/20/2018 Overview: 12/22/17 - Breech on exam, breech tilt exercises reviewed. Maria Elena Barbosa APRN.ARIAAN Rubella non-immune status, antepartum 08/04/2017 03/31/2018 Encounter for supervision of other normal , first trimester 08/02/2017 03/31/2018 Mild hyperemesis gravidarum 08/02/201712/2017 Overview: August 02, 2017 11 lb wt gain since . Vit b 6, unisom and phenergan and PNV at this time. Ijeoma Montalvo MD History of hemorrhage, currently preg nant 08/02/2017 03/31/2018 Overview: H/o PP hemohage w/ transfuion after , was induced. History of depression 08/02/2017 03/31/2018 Overview: Several years ago,before first . Was on meds for a year or so. She feels she might have had mild PP depression but wasn't put on meds for this. Ijeoma Montalvo MD documented as of this encounter (statuses as of 08/01/2022) [facility]13[facility]2018 History of Past illness Narrative* Problem Noted Date Resolved Date Uterine size date discrepancy , third t rimester 02/04/2018 03/31/2018 Overview: 02/04/18 - growth US at [facility] shows 2702g(11%) with AFV of 13.2 - KJ Positive GBS test 01/24/2018 03/31/2018 Breech presentation with problem 12/2201/20/2018 Overview: 12/22/17 - Breech on exam, breech tilt exercises reviewed. Maria Elena Barbosa APRN.CNM Rubella non-immune status, antepartum 08/04/2017 03/31/2018 Encounter for supervision of other normal , first trimester 08/02/2017 03/31/2018 Mild hyperemesis gravidarum 08/02/2017 03/0 12/2017 Overview: August 02, 2017 11 lb wt gain since . Vit b 6, unisom and phenergan and PNV at this time. Ijeoma Montalvo MD History of hemorrhage, currently preg nant 08/02/2017 03/31/2018 Overview: H/o PP hemohage w/ transfuion after , was induced. History of depression 08/02/2017 03/31/2018 Overview: Several years ago,before first . Was on meds for a year or so. She feels she might have had mild PP depression but wasn't put on meds for this. Ijeoma Montalvo MD documented as of this encounter (statuses as of 08/08/2022) [facility]13[facility]2018 History of Past illness Narrative* Problem Noted Date Resolved Date Uterine size date discrepancy , third t rimester 02/04/2018 03/31/2018 Overview: 02/04/18 - growth US at [facility] shows 2702g(11%) with AFV of 13.2 - KJ Positive GBS test 01/24/2018 03/31/2018 Breech presentation with problem 12/2201/20/2018 Overview: 12/22/17 - Breech on exam, breech tilt exercises reviewed. Maria Elena Barbosa, [employer].CNM Rubella non-immune status, antepartum 08/04/2017 03/31/2018 Encounter for supervision of other normal , first trimester 08/02/2017 03/31/2018 Mild hyperemesis gravidarum 08/02/2017 03/12/2017 Overview: August 02, 2017 11 lb wt gain since . Vit b 6, unisom and phenergan and PNV at this time. Ijeoma Montalvo MD History of hemorrhage, currently preg nant 08/02/2017 03/31/2018 Overview: H/o PP hemohage w/ transfuion after , was induced. History of depression 08/02/2017 03/31/2018 Overview: Several years ago,before first . Was on meds for a year or so. She feels she might have had mild PP depression but wasn't put on meds for this. Ijeoma Montalvo MD documented as of this encounter (statuses as of 08/12/2022) [facility]13[facility]2018 History of Past illness Narrative* Problem Noted Date Resolved Date Uterine size date discrepancy , third t rimester 02/04/2018 03/31/2018 Overview: 02/04/18 - growth US at [facility] shows 2702g(11%) with AFV of 13.2 - KJ Positive GBS test 01/24/2018 03/31/2018 Breech presentation with problem 12/2201/20/2018 Overview: 12/22/17 - Breech on exam, breech tilt exercises reviewed. Maria Elena Barbosa APRN.CNM Rubella non-immune status, antepartum 08/04/2017 03/31/2018 Encounter for supervision of other normal , first trimester 08/02/2017 03/31/2018 Mild hyperemesis gravidarum 08/02/201712/2017 Overview: August 02, 2017 11 lb wt gain since . Vit b 6, unisom and phenergan and PNV at this time. Ijeoma Montalvo MD History of hemorrhage, currently preg nant 08/02/2017 03/31/2018 Overview: H/o PP hemohage w/ transfuion after , was induced. History of depression 08/02/2017 03/31/2018 Overview: Several years ago,before first . Was on meds for a year or so. She feels she might have had mild PP depression but wasn't put on meds for this. Ijeoma Montalvo MD documented as of this encounter (statuses as of 08/15/2022) [facility]13[facility]2018 History of Past illness Narrative* Problem Noted Date Resolved Date Uterine size date discrepancy , third t rimester 02/04/2018 03/31/2018 Overview: 02/04/18 - growth US at [facility] shows 2702g(11%) with AFV of 13.2 - KJ Positive GBS test 01/24/2018 03/31/2018 Breech presentation with problem 12/2201/20/2018 Overview: 12/22/17 - Breech on exam, breech tilt exercises reviewed. Maria Elena Barbosa APRN.ANJANAM Rubella non-immune status, antepartum 08/04/2017 03/31/2018 Encounter for supervision of other normal , first trimester 08/02/2017 03/31/2018 Mild hyperemesis gravidarum 08/02/201712/2017 Overview: August 02, 2017 11 lb wt gain since . Vit b 6, unisom and phenergan and PNV at this time. Ijeoma Montalvo MD History of hemorrhage, currently preg nant 08/02/2017 03/31/2018 Overview: H/o PP hemohage w/ transfuion after , was induced. History of depression 08/02/2017 03/31/2018 Overview: Several years ago,before first . Was on meds for a year or so. She feels she might have had mild PP depression but wasn't put on meds for this. Ijeoma Montalvo MD documented as of this encounter (statuses as of 08/22/2022) [facility]13[facility]2018 History of Past illness Narrative* Problem Noted Date Resolved Date Uterine size date discrepancy , third t rimester 02/04/2018 03/31/2018 Overview: 02/04/18 - growth US at [facility] shows 2702g(11%) with AFV of 13.2 - KJ Positive GBS test 01/24/2018 03/31/2018 Breech presentation with problem 12/2201/20/2018 Overview: 12/22/17 - Breech on exam, breech tilt exercises reviewed. Maria Elena Barbosa APRN.ARIANA Rubella non-immune status, antepartum 08/04/2017 03/31/2018 Encounter for supervision of other normal , first trimester 08/02/2017 03/31/2018 Mild hyperemesis gravidarum 08/02/201712/2017 Overview: August 02, 2017 11 lb wt gain since . Vit b 6, unisom and phenergan and PNV at this time. Ijeoma Montalvo MD History of hemorrhage, currently preg nant 08/02/2017 03/31/2018 Overview: H/o PP hemohage w/ transfuion after , was induced. History of depression 08/02/2017 03/31/2018 Overview: Several years ago,before first . Was on meds for a year or so. She feels she might have had mild PP depression but wasn't put on meds for this. Ijeoma Montalvo MD documented as of this encounter (statuses as of 2022) [facility]13[facility]2018 History of Past illness Narrative* Problem Noted Date Resolved Date Uterine size date discrepancy , third t rimester 02/04/2018 03/31/2018 Overview: 02/04/18 - growth US at [facility] shows 2702g(11%) with AFV of 13.2 - KJ Positive GBS test 01/24/2018 03/31/2018 Breech presentation with problem 12/2201/20/2018 Overview: 12/22/17 - Breech on exam, breech tilt exercises reviewed. Maria Elena Barbosa APRN.CNM Rubella non-immune status, antepartum 08/04/2017 03/31/2018 Encounter for supervision of other normal , first trimester 08/02/2017 03/31/2018 Mild hyperemesis gravidarum 08/02/2017 03/12/2017 Overview: August 02, 2017 11 lb wt gain since . Vit b 6, unisom and phenergan and PNV at this time. Ijeoma Montalvo MD History of hemorrhage, currently preg nant 08/02/2017 03/31/2018 Overview: H/o PP hemohage w/ transfuion after , was induced. History of depression 08/02/2017 03/31/2018 Overview: Several years ago,before first . Was on meds for a year or so. She feels she might have had mild PP depression but wasn't put on meds for this. Ijeoma Montalvo MD documented as of this encounter (statuses as of 10/04/2022) [facility]13[facility]2018 History of Past illness Narrative* Problem Noted Date Resolved Date Uterine size date discrepancy , third t rimester 02/04/2018 03/31/2018 Overview: 02/04/18 - growth US at [facility] shows 2702g(11%) with AFV of 13.2 - KJ Positive GBS test 01/24/2018 03/31/2018 Breech presentation with problem 12/2201/20/2018 Overview: 12/22/17 - Breech on exam, breech tilt exercises reviewed. Maria Elena Barbosa, [employer].CNM Rubella non-immune status, antepartum 08/04/2017 03/31/2018 Encounter for supervision of other normal , first trimester 08/02/2017 03/31/2018 Mild hyperemesis gravidarum 08/02/2017 03/12/2017 Overview: August 02, 2017 11 lb wt gain since . Vit b 6, unisom and phenergan and PNV at this time. Ijeoma Montalvo MD History of hemorrhage, currently preg nant 08/02/2017 03/31/2018 Overview: H/o PP hemohage w/ transfuion after , was induced. History of depression 08/02/2017 03/31/2018 Overview: Several years ago,before first . Was on meds for a year or so. She feels she might have had mild PP depression but wasn't put on meds for this. Ijeoma Montalvo MD documented as of this encounter (statuses as of 10/08/2022) [facility]13[facility]2018 History of Past illness Narrative* Problem Noted Date Resolved Date Uterine size date discrepancy , third t rimester 02/04/2018 03/31/2018 Overview: 02/04/18 - growth US at [facility] shows 2702g(11%) with AFV of 13.2 - KJ Positive GBS test 01/24/2018 03/31/2018 Breech presentation with problem 12/2201/20/2018 Overview: 12/22/17 - Breech on exam, breech tilt exercises reviewed. Maria Elena Barbosa APRN.CNM Rubella non-immune status, antepartum 08/04/2017 03/31/2018 Encounter for supervision of other normal , first trimester 08/02/2017 03/31/2018 Mild hyperemesis gravidarum 08/02/201712/2017 Overview: August 02, 2017 11 lb wt gain since . Vit b 6, unisom and phenergan and PNV at this time. Ijeoma Montalvo MD History of hemorrhage, currently preg nant 08/02/2017 03/31/2018 Overview: H/o PP hemohage w/ transfuion after , was induced. History of depression 08/02/2017 03/31/2018 Overview: Several years ago,before first . Was on meds for a year or so. She feels she might have had mild PP depression but wasn't put on meds for this. Ijeoma Montalvo MD documented as of this encounter (statuses as of 10/10/2022) [facility]13[facility]2018 History of Past illness Narrative* Problem Noted Date Resolved Date Uterine size date discrepancy , third t rimester 02/04/2018 03/31/2018 Overview: 02/04/18 - growth US at [facility] shows 2702g(11%) with AFV of 13.2 - KJ Positive GBS test 01/24/2018 03/31/2018 Breech presentation with problem 12/2201/20/2018 Overview: 12/22/17 - Breech on exam, breech tilt exercises reviewed. Maria Elena Barbosa APRN.ARIANA Rubella non-immune status, antepartum 08/04/2017 03/31/2018 Encounter for supervision of other normal , first trimester 08/02/2017 03/31/2018 Mild hyperemesis gravidarum 08/02/201712/2017 Overview: August 02, 2017 11 lb wt gain since . Vit b 6, unisom and phenergan and PNV at this time. Ijeoma Montalvo MD History of hemorrhage, currently preg nant 08/02/2017 03/31/2018 Overview: H/o PP hemohage w/ transfuion after , was induced. History of depression 08/02/2017 03/31/2018 Overview: Several years ago,before first . Was on meds for a year or so. She feels she might have had mild PP depression but wasn't put on meds for this. Ijeoma Montalvo MD documented as of this encounter (statuses as of 10/17/2022) [facility]2018 History of Past illness Narrative* Problem Noted Date Resolved Date Uterine size date discrepancy , third t rimester 02/04/2018 03/31/2018 Overview: 02/04/18 - growth US at [facility] shows 2702g(11%) with AFV of 13.2 - KJ Positive GBS test 01/24/2018 03/31/2018 Breech presentation with problem 12/2201/20/2018 Overview: 12/22/17 - Breech on exam, breech tilt exercises reviewed. Maria Elena Barbosa APRN.ARIANA Rubella non-immune status, antepartum 08/04/2017 03/31/2018 Encounter for supervision of other normal , first trimester 08/02/2017 03/31/2018 Mild hyperemesis gravidarum 08/02/201712/2017 Overview: August 02, 2017 11 lb wt gain since . Vit b 6, unisom and phenergan and PNV at this time. Ijeoma Montalvo MD History of hemorrhage, currently preg nant 08/02/2017 03/31/2018 Overview: H/o PP hemohage w/ transfuion after , was induced. History of depression 08/02/2017 03/31/2018 Overview: Several years ago,before first . Was on meds for a year or so. She feels she might have had mild PP depression but wasn't put on meds for this. Ijeoma Montalvo MD documented as of this encounter (statuses as of 10/24/2022) [facility]2018 History of Past illness Narrative* Problem Noted Date Resolved Date Uterine size date discrepancy , third t rimester 02/04/2018 03/31/2018 Overview: 02/04/18 - growth US at [facility] shows 2702g(11%) with AFV of 13.2 - KJ Positive GBS test 01/24/2018 03/31/2018 Breech presentation with problem 12/2201/20/2018 Overview: 12/22/17 - Breech on exam, breech tilt exercises reviewed. Maria Elena Barbosa APRN.CNM Rubella non-immune status, antepartum 08/04/2017 03/31/2018 Encounter for supervision of other normal , first trimester 08/02/2017 03/31/2018 Mild hyperemesis gravidarum 08/02/2017 03/0 12/2017 Overview: August 02, 2017 11 lb wt gain since . Vit b 6, unisom and phenergan and PNV at this time. Ijeoma Montalvo MD History of hemorrhage, currently preg nant 08/02/2017 03/31/2018 Overview: H/o PP hemohage w/ transfuion after , was induced. History of depression 08/02/2017 03/31/2018 Overview: Several years ago,before first . Was on meds for a year or so. She feels she might have had mild PP depression but wasn't put on meds for this. Ijeoma Montalvo MD documented as of this encounter (statuses as of 10/29/2022) [facility]2018 History of Past illness Narrative* Problem Noted Date Resolved Date Uterine size date discrepancy , third t rimester 02/04/2018 03/31/2018 Overview: 02/04/18 - growth US at [facility] shows 2702g(11%) with AFV of 13.2 - KJ Positive GBS test 01/24/2018 03/31/2018 Breech presentation with problem 12/2201/20/2018 Overview: 12/22/17 - Breech on exam, breech tilt exercises reviewed. Maria Elena Barbosa, [employer].CNM Rubella non-immune status, antepartum 08/04/2017 03/31/2018 Encounter for supervision of other normal , first trimester 08/02/2017 03/31/2018 Mild hyperemesis gravidarum 08/02/2017 0312/2017 Overview: August 02, 2017 11 lb wt gain since . Vit b 6, unisom and phenergan and PNV at this time. Ijeoma Montalvo MD History of hemorrhage, currently preg nant 08/02/2017 03/31/2018 Overview: H/o PP hemohage w/ transfuion after , was induced. History of depression 08/02/2017 03/31/2018 Overview: Several years ago,before first . Was on meds for a year or so. She feels she might have had mild PP depression but wasn't put on meds for this. Ijeoma Montalvo MD documented as of this encounter (statuses as of 10/29/2022) [facility]2018 History of Past illness Narrative* Problem Noted Date Resolved Date Uterine size date discrepancy , third t rimester 02/04/2018 03/31/2018 Overview: 02/04/18 - growth US at [facility] shows 2702g(11%) with AFV of 13.2 - KJ Positive GBS test 01/24/2018 03/31/2018 Breech presentation with problem 12/2201/20/2018 Overview: 12/22/17 - Breech on exam, breech tilt exercises reviewed. Maria Elena Barbosa APRN.CNM Rubella non-immune status, antepartum 08/04/2017 03/31/2018 Encounter for supervision of other normal , first trimester 08/02/2017 03/31/2018 Mild hyperemesis gravidarum 08/02/201712/2017 Overview: August 02, 2017 11 lb wt gain since . Vit b 6, unisom and phenergan and PNV at this time. Ijeoma Montalvo MD History of hemorrhage, currently preg nant 08/02/2017 03/31/2018 Overview: H/o PP hemohage w/ transfuion after , was induced. History of depression 08/02/2017 03/31/2018 Overview: Several years ago,before first . Was on meds for a year or so. She feels she might have had mild PP depression but wasn't put on meds for this. Ijeoma Montalvo MD documented as of this encounter (statuses as of 10/30/2022) [facility]2018 History of Past illness Narrative* Problem Noted Date Resolved Date Uterine size date discrepancy , third t rimester 02/04/2018 03/31/2018 Overview: 02/04/18 - growth US at [facility] shows 2702g(11%) with AFV of 13.2 - KJ Positive GBS test 01/24/2018 03/31/2018 Breech presentation with problem 12/2201/20/2018 Overview: 12/22/17 - Breech on exam, breech tilt exercises reviewed. Maria Elena Barbosa APRN.ARIANA Rubella non-immune status, antepartum 08/04/2017 03/31/2018 Encounter for supervision of other normal , first trimester 08/02/2017 03/31/2018 Mild hyperemesis gravidarum 08/02/201712/2017 Overview: August 02, 2017 11 lb wt gain since . Vit b 6, unisom and phenergan and PNV at this time. Ijeoma Montalvo MD History of hemorrhage, currently preg nant 08/02/2017 03/31/2018 Overview: H/o PP hemohage w/ transfuion after , was induced. History of depression 08/02/2017 03/31/2018 Overview: Several years ago,before first . Was on meds for a year or so. She feels she might have had mild PP depression but wasn't put on meds for this. Ijeoma Montalvo MD documented as of this encounter (statuses as of 10/31/2022) [facility]2018 History of Past illness Narrative* Problem Noted Date Resolved Date Uterine size date discrepancy , third t rimester 02/04/2018 03/31/2018 Overview: 02/04/18 - growth US at [facility] shows 2702g(11%) with AFV of 13.2 - KJ Positive GBS test 01/24/2018 03/31/2018 Breech presentation with problem 12/2201/20/2018 Overview: 12/22/17 - Breech on exam, breech tilt exercises reviewed. Maria Elena Barbosa APRN.ARIANA Rubella non-immune status, antepartum 08/04/2017 03/31/2018 Encounter for supervision of other normal , first trimester 08/02/2017 03/31/2018 Mild hyperemesis gravidarum 08/02/201712/2017 Overview: August 02, 2017 11 lb wt gain since . Vit b 6, unisom and phenergan and PNV at this time. Ijeoma Montalvo MD History of hemorrhage, currently preg nant 08/02/2017 03/31/2018 Overview: H/o PP hemohage w/ transfuion after , was induced. History of depression 08/02/2017 03/31/2018 Overview: Several years ago,before first . Was on meds for a year or so. She feels she might have had mild PP depression but wasn't put on meds for this. Ijeoma Montalvo MD documented as of this encounter (statuses as of 11/05/2022) [facility]2018 History of Past illness Narrative* Problem Noted Date Resolved Date Uterine size date discrepancy , third t rimester 02/04/2018 03/31/2018 Overview: 02/04/18 - growth US at [facility] shows 2702g(11%) with AFV of 13.2 - KJ Positive GBS test 01/24/2018 03/31/2018 Breech presentation with problem 12/2201/20/2018 Overview: 12/22/17 - Breech on exam, breech tilt exercises reviewed. 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 Vit b 6, unisom and phenergan and PNV at this time. Ijeoma Montalvo MD History of hemorrhage, currently preg nant 08/02/2017 03/31/2018 Overview: H/o PP hemohage w/ transfuion after , was induced. History of depression 08/02/2017 03/31/2018 Overview: Several years ago,before first . Was on meds for a year or so. She feels she might have had mild PP depression but wasn't put on meds for this. Ijeoma Montalvo MD documented as of this encounter (statuses as of 11/07/2022) [facility] History of Past illness Narrative* Problem Noted Date Resolved Date Uterine size date discrepancy , third t rimester 02/04/2018 03/31/2018 Overview: 02/04/18 - growth US at [facility] shows 2702g(11%) with AFV of 13.2 - KJ Positive GBS test 01/24/2018 03/31/2018 Breech presentation with problem 12/2201/20/2018 Overview: 12/22/17 - Breech on exam, breech tilt exercises reviewed. Maria Elena Barbosa APRN.CNM Rubella non-immune status, antepartum 08/04/2017 03/31/2018 Encounter for supervision of other normal , first trimester 08/02/2017 03/31/2018 Mild hyperemesis gravidarum 08/02/201712/2017 Overview: August 02, 2017 11 lb wt gain since . Vit b 6, unisom and phenergan and PNV at this time. Ijeoma Montalvo MD History of hemorrhage, currently preg nant 08/02/2017 03/31/2018 Overview: H/o PP hemohage w/ transfuion after , was induced. History of depression 08/02/2017 03/31/2018 Overview: Several years ago,before first . Was on meds for a year or so. She feels she might have had mild PP depression but wasn't put on meds for this. Ijeoma Montalvo MD documented as of this encounter (statuses as of 11/25/2022) [facility] History of Past illness Narrative* Problem Noted Date Diagnosed Date Resolved Date Uterine size date discrepanc y , third trimester 02/04/2018 03/31/2018 Overview: 02/04/18 - growth US at [facility] shows 2702g(11%) with AFV of 13.2 - KJ Positive GBS test 01/24/2018 03/31/2018 Breech presentation with problem 12/22/2017 01/20/2018 Overview: 12/22/17 - Breech on exam, breech tilt exercises reviewed. Maria Elena Barbosa APRN.CNM Rubella non-immune status, antepartum 08/04/2017 03/31/2018 Encounter for supervision of other normal , first trimester 08/02/2017 03/31/2018 Mild hyperemesis gravidarum 08/02/2017 09/28/2017 Overview: August 02, 2017 11 lb wt gain since . Vit b 6, unisom and phenergan and PNV at this time. Ijeoma Montalvo MD History of hemorr ronna, currently 08/02/2017 03/31/2018 Overview: H/o PP hemohage w/ transfuion after , was induced. History of depression 08/02/20172017 Overview: Several years ago,before first . Was on meds for a year or so. She feels she might have had mild PP depression but wasn't put on meds for this. Ijeoma Montalvo MD documented as of this encounter (statuses as of 03/25/2023) [facility] History of Past illness Narrative* Problem Noted Date Diagnosed Date Resolved Date Uterine size date discrepanc y , third trimester 02/04/2018 03/31/2018 Overview: 02/04/18 - growth US at [facility] shows 2702g(11%) with AFV of 13.2 - KJ Positive GBS test 01/24/2018 03/31/2018 Breech presentation with problem 12/22/2017 01/20/2018 Overview: 12/22/17 - Breech on exam, breech tilt exercises reviewed. Maria Elena Barbosa APRN.ARIANA Rubella non-immune status, antepartum 08/04/2017 03/31/2018 Encounter for supervision of other normal , first trimester 08/02/2017 03/31/2018 Mild hyperemesis gravidarum 08/02/2017 09/28/2017 Overview: August 02, 2017 11 lb wt gain since . Vit b 6, unisom and phenergan and PNV at this time. Ijeoma Montalvo MD History of hemorr ronna, currently 08/02/2017 03/31/2018 Overview: H/o PP hemohage w/ transfuion after , was induced. History of depression 08/02/20172017 Overview: Several years ago,before first . Was on meds for a year or so. She feels she might have had mild PP depression but wasn't put on meds for this. Ijeoma Montalvo MD documented as of this encounter (statuses as of 05/18/2023) [facility] History of Past illness Narrative* Problem Noted Date Diagnosed Date Resolved Date Uterine size date discrepanc y , third trimester 02/04/2018 03/31/2018 Overview: 02/04/18 - growth US at [facility] shows 2702g(11%) with AFV of 13.2 - KJ Positive GBS test 01/24/2018 03/31/2018 Breech presentation with problem 12/22/2017 01/20/2018 Overview: 12/22/17 - Breech on exam, breech tilt exercises reviewed. Maria Elena Barbosa APRN.ARIANA Rubella non-immune status, antepartum 08/04/2017 03/31/2018 Encounter for supervision of other normal , first trimester 08/02/2017 03/31/2018 Mild hyperemesis gravidarum 08/02/2017 09/28/2017 Overview: August 02, 2017 11 lb wt gain since . Vit b 6, unisom and phenergan and PNV at this time. Ijeoma Montalvo MD History of hemorr ronna, currently 08/02/2017 03/31/2018 Overview: H/o PP hemohage w/ transfuion after , was induced. History of depression 08/02/20172017 Overview: Several years ago,before first . Was on meds for a year or so. She feels she might have had mild PP depression but wasn't put on meds for this. Ijeoma Montalvo MD documented as of this encounter (statuses as of 05/18/2023) [facility] History of Past illness Narrative* Problem Noted Date Diagnosed Date Resolved Date Uterine size date discrepanc y , third trimester 02/04/2018 03/31/2018 Overview: 02/04/18 - growth US at [facility] shows 2702g(11%) with AFV of 13.2 - KJ Positive GBS test 01/24/2018 03/31/2018 Breech presentation with problem 12/22/2017 01/20/2018 Overview: 12/22/17 - Breech on exam, breech tilt exercises reviewed. Maria Elena Barbosa APRN.CNM Rubella non-immune status, antepartum 08/04/2017 03/31/2018 Encounter for supervision of other normal , first trimester 08/02/2017 03/31/2018 Mild hyperemesis gravidarum 08/02/2017 09/28/2017 Overview: August 02, 2017 11 lb wt gain since . Vit b 6, unisom and phenergan and PNV at this time. Ijeoma Montalvo MD History of hemorr ronna, currently 08/02/2017 03/31/2018 Overview: H/o PP hemohage w/ transfuion after , was induced. History of depression 08/02/20172017 Overview: Several years ago,before first . Was on meds for a year or so. She feels she might have had mild PP depression but wasn't put on meds for this. Ijeoma Montalvo MD documented as of this encounter (statuses as of 05/19/2023) [facility] History of Past illness Narrative* Problem Noted Date Diagnosed Date Resolved Date Uterine size date discrepanc y , third trimester 02/04/2018 03/31/2018 Overview: 02/04/18 - growth US at [facility] shows 2702g(11%) with AFV of 13.2 - KJ Positive GBS test 01/24/2018 03/31/2018 Breech presentation with problem 12/22/2017 01/20/2018 Overview: 12/22/17 - Breech on exam, breech tilt exercises reviewed. Maria Elena Barbosa APRN.CNM Rubella non-immune status, antepartum 08/04/2017 03/31/2018 Encounter for supervision of other normal , first trimester 08/02/2017 03/31/2018 Mild hyperemesis gravidarum 08/02/2017 09/28/2017 Overview: August 02, 2017 11 lb wt gain since . Vit b 6, unisom and phenergan and PNV at this time. Ijeoma Montalvo MD History of hemorr ronna, currently 08/02/2017 03/31/2018 Overview: H/o PP hemohage w/ transfuion after , was induced. History of depression 08/02/20172017 Overview: Several years ago,before first . Was on meds for a year or so. She feels she might have had mild PP depression but wasn't put on meds for this. Ijeoma Montalvo MD documented as of this encounter (statuses as of 05/22/2023) [facility] History of Past illness Narrative* Problem Noted Date Diagnosed Date Resolved Date Uterine size date discrepanc y , third trimester 02/04/2018 03/31/2018 Overview: 02/04/18 - growth US at [facility] shows 2702g(11%) with AFV of 13.2 - KJ Positive GBS test 01/24/2018 03/31/2018 Breech presentation with problem 12/22/2017 01/20/2018 Overview: 12/22/17 - Breech on exam, breech tilt exercises reviewed. Maria Elena Barbosa APRN.CNM Rubella non-immune status, antepartum 08/04/2017 03/31/2018 Encounter for supervision of other normal , first trimester 08/02/2017 03/31/2018 Mild hyperemesis gravidarum 08/02/2017 09/28/2017 Overview: August 02, 2017 11 lb wt gain since . Vit b 6, unisom and phenergan and PNV at this time. Ijeoma Montalvo MD History of hemorr ronna, currently 08/02/2017 03/31/2018 Overview: H/o PP hemohage w/ transfuion after , was induced. History of depression 08/02/20172017 Overview: Several years ago,before first . Was on meds for a year or so. She feels she might have had mild PP depression but wasn't put on meds for this. Ijeoma Montalvo MD documented as of this encounter (statuses as of 05/29/2023) [facility] History of Past illness Narrative* Problem Noted Date Diagnosed Date Resolved Date Uterine size date discrepanc y , third trimester 02/04/2018 03/31/2018 Overview: 02/04/18 - growth US at [facility] shows 2702g(11%) with AFV of 13.2 - KJ Positive GBS test 01/24/2018 03/31/2018 Breech presentation with problem 12/22/2017 01/20/2018 Overview: 12/22/17 - Breech on exam, breech tilt exercises reviewed. Maria Elena Barbosa APRN.[facility] Encounter for supervision of other normal , first trimester 08/02/2017 03/31/2018 Mild hyperemesis gravidarum 08/02/2017 09/28/2017 Overview: August 02, 2017 11 lb wt gain since . Vit b 6, unisom and phenergan and PNV at this time. Ijeoma Montalvo MD History of hemorr ronna, currently 08/02/2017 03/31/2018 Overview: H/o PP hemohage w/ transfuion after , was induced. History of depression 08/02/20172017 Overview: Several years ago,before first . Was on meds for a year or so. She feels she might have had mild PP depression but wasn't put on meds for this. Ijeoma Montalvo MD documented as of this encounter (statuses as of 06/24/2023) [facility] No data available for this section [facility] Evaluation note* Diagnosis Episodic lightheadedness- Primary Dizziness and giddiness documented [facility] Diagnosis Anxiety and depression Dysthymic disorder [facility] Diagnosis Severe anxiety- Primary Moderately severe depression [facility]* Diagnosis Generalized abdominal pain- Primary Abdominal pain, generalized Loose stools Abnormal feces Epigastric pain Abdominal pain, epigastric [facility] Diagnosis Generalized abdominal pain- Primary Abdominal pain, generalized Gallstones Calculus of gallbladder without mention of cholecystitis or obstruction Lesion of left ovary [facility] Diagnosis Major depressive disorder, recurrent episode, moderate (HCC)- Primary Major depressive disorder, recurrent episode, moderate JEREMIAH (generalized anxiety disorder) Generalized anxiety disorder Borderline personality disorder (HCC) Borderline personality disorder History of ADHD Personal history of other mental disorder Marijuana use, episodic documented [facility] this [facility] Diagnosis APPOINTMENT CANCELLED- Primary [facility] Diagnosis Major depressive disorder, recurrent episode, moderate (HCC) Major depressive disorder, recurrent episode, moderate JEREMIAH (generalized anxiety disorder) Generalized anxiety disorder Borderline personality disorder (HCC) Borderline personality disorder History of ADHD Personal history of other mental disorder Marijuana use, episodic [facility] Diagnosis Viral illness- Primary Unspecified viral infection, in conditions classified elsewhere and of unspecified site documented [facility] this encounter [facility] Diagnosis Throat pain- Primary Suspected 2019 novel coronavirus infection documented [facility] this [facility]* Diagnosis Pharyngitis, unspecified etiology- Primary Bacterial sinusitis Unspecified sinusitis (chronic) documented [facility] this [facility]* Diagnosis Bacterial conjunctivitis- Primary Other conjunctivitis documented [facility] this [facility]* Diagnosis Rash of hands- Primary Rash and other nonspecific skin eruption documented [facility] this [facility]* Diagnosis Encounter for supervision of normal in multigravida- Primary 7 weeks gestation of state, incidental Uterine size-date discrepancy, first trimester documented [facility] this [facility] Diagnosis First trimester screening- Primary Other specified screening 12 weeks gestation of state, incidental documented [facility] this encounter [facility]* Diagnosis Encounter for supervision of normal in multigravida- Primary 15 weeks gestation of state, incidental Nausea and vomiting of , antepartum Unspecified vomiting of , antepartum documented [facility] illness NarrativePatient states she is having some vaginal discharge and odor. No burning with urination.[facility] Work Phone: Reason for referral (narrative)* Diagnostic Procedure Only (Routine) - Pending Review Specialty Diagnoses / Procedures Referred By Loc menjivar Referred To Contact [facility] Diagnoses Encounter for supervision of normal in multigravida 15 weeks gestation of Procedures OBSTETRIC ULTRASOUND WHI US PREG UTERUS AFTER 1ST TRIMEST GESTATION Marleen Guerra APRN.CNM [address] [place] [address] [facility] [place] [address] [place] [address] Referral ID Status Reason Start Date Expiration Date Visits Requested Visits Authorized [id number] Pending Review Auto-Generat ed Referral 3 06/14/2024 1 1 [facility] Summary Purpose Family History No Family History Records FoundNo Family History Records FoundNo Family History Records FoundNo Family History Records FoundNo Family History Records Found Advance Directives No Advanced Directives Records FoundDocuments on File Type Date Recorded 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 Advance Directive(s) 02/25/2018 8:19 PM Advance Directive(s) 08/01/2017 7:35 PM Documents on File Type Date Recorded 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 Advance Directive(s) 02/09/2022 4:13 PM Advance Directive(s) 02/25/2018 8:19 PM Advance Directive(s) 08/01/2017 7:35 PM Reason for Referral Specialty Diagnoses / Procedures Referred By Loc menjivar Referred To Contact [facility] Diagnoses Major depressive disorder, recurrent episode, moderate (HCC) JEREMIAH (generalized anxiety disorder) Borderline personality disorder (HCC) History of ADHD Marijuana use, episodic Procedures CONSULT TO INTENSIVE OUTPATIENT PROGRAM (IOP) OFFICE/OUTPATIENT [facility] MDM 60-74 MINUTES Vidhya Mc, HUMBERTO.GAS REGULATOR REPAIRER [address] [place] [address] Ps Adult [facility] [address] [place] [address] Referral ID Status Reason Start Date Expiration Date V isits Requested Visits Authorized [id number] Closed PCP Requested Referral 02/20/2022 02/20/2023 1 1 Specialty Diagnoses / Procedures Referred By Loc menjivar Referred To Contact Marleen Guerra APRN.CNM [address] [place] [address] Referral ID Status Reason Start Date Expiration Date Visits Re quested Visits Authorized [id number] Closed 1 1 Specialty Diagnoses / Procedures Referred By Contac t Referred To Contact [facility] Diagnoses 7 weeks gestation of Uterine size-date discrepancy, first trimester Procedures NUCHAL TRANSLUCENCY WHI US NUCHAL TRANSLUCENCY 1ST GESTATION Marleen Guerra APRN.CNM [address] [place] [place] [address] [facility] [address] [place] [address] Referral ID Status Reason Start Date Expiration Date Visits Requested Visits Authorized [id number] Authorized Auto-Generat ed Referral 05/13/2024 1 1 Health Concerns Infection Onset Date Last Indicated Resolved Time COVID-19 Rule-Out 08/12/2022 08/12/2022 Infection Onset Date Last Indicated Resolved Time COVID-19 Rule-Out 10/08/2022 10/08/2022 Problem Noted Date Diagnosed Date [facility] Education - COMMON 05/14/2023 [place] - [place] 05/14/2023 Problem Noted Date Diagnosed Date [facility] Education - COMMON 05/14/2023 Education - [place] 05/14/2023 Infection Onset Date Last Indicated Resolved Time COVID-19 Rule-Out 05/18/2023 05/18/2023 Problem Noted Date Diagnosed Date [facility] Education - COMMON 05/14/2023 Education - [place] 05/14/2023 Problem Noted Date Diagnosed Date [facility] Education - COMMON 05/14/2023 Education - [place] 05/14/2023 Problem Noted Date Diagnosed Date [facility] Education - COMMON 05/14/2023 Education - [place] 05/14/2023 Additional Source Comments INFORMATION SOURCE (unrecogn ized section and content) DATE CREATED AUTHOR AUTHOR'S ORGANIZ ATION 02/09/2021 [facility] DATE CREATED AUTHOR AUTHOR'S ORGANIZ ATION 09/24/2022 [facility] DATE CREATED AUTHOR AUTHOR'S ORGANIZ ATION 10/02/2022 [facility] ([place]) DATE CREATED AUTHOR AUTHOR'S ORGANIZ ATION 07/22/2023 [facility] Source Comments (unrecognize d section and content) In the event this informatio n is protected by the Federal Confidentiality of Alcohol and Drug Abuse Patient Records regulations: The Federal rules restrict any use of the information to criminally investigate or prosecute any alcohol or drug abuse patient.[facility] the event this information is protected by the Federal Confidentiality of Alcohol and Drug Abuse Patient Records regulations: The Federal rules restrict any use of the information to criminally investigate or prosecute any alcohol or drug abuse patient.[facility] CenterIn the event this information is protected by the Federal Confidentiality of Alcohol and Drug Abuse Patient Records regulations: The Federal rules restrict any use of the information to criminally investigate or prosecute any alcohol or drug abuse patient.[facility] the event this information is protected by the Federal Confidentiality of Alcohol and Drug Abuse Patient Records regulations: The Federal rules restrict any use of the information to criminally investigate or prosecute any alcohol or drug abuse patient.[facility] Center[facility] the event this information is protected by the Federal Confidentiality of Alcohol and Drug Abuse Patient Records regulations: The Federal rules restrict any use of the information to criminally investigate or prosecute any alcohol or drug abuse patient.[facility] CenterIn the event this information is protected by the Federal Confidentiality of Alcohol and Drug Abuse Patient Records regulations: The Federal rules restrict any use of the information to criminally investigate or prosecute any alcohol or drug abuse patient.[facility] CenterIn the event this information is protected by the Federal Confidentiality of Alcohol and Drug Abuse Patient Records regulations: The Federal rules restrict any use of the information to criminally investigate or prosecute any alcohol or drug abuse patient.[facility] Center[facility] the event this information is protected by the Federal Confidentiality of Alcohol and Drug Abuse Patient Records regulations: The Federal rules restrict any use of the information to criminally investigate or prosecute any alcohol or drug abuse patient.[facility] the event this information is protected by the Federal Confidentiality of Alcohol and Drug Abuse Patient Records regulations: The Federal rules restrict any use of the information to criminally investigate or prosecute any alcohol or drug abuse patient.[facility] CenterIn the event this information is protected by the Federal Confidentiality of Alcohol and Drug Abuse Patient Records regulations: The Federal rules restrict any use of the information to criminally investigate or prosecute any alcohol or drug abuse patient.[facility] CenterIn the event this information is protected by the Federal Confidentiality of Alcohol and Drug Abuse Patient Records regulations: The Federal rules restrict any use of the information to criminally investigate or prosecute any alcohol or drug abuse patient.[facility] Center[facility] the event this information is protected by the Federal Confidentiality of Alcohol and Drug Abuse Patient Records regulations: The Federal rules restrict any use of the information to criminally investigate or prosecute any alcohol or drug abuse patient.[facility] CenterIn the event this information is protected by the Federal Confidentiality of Alcohol and Drug Abuse Patient Records regulations: The Federal rules restrict any use of the information to criminally investigate or prosecute any alcohol or drug abuse patient.[facility] CenterIn the event this information is protected by the Federal Confidentiality of Alcohol and Drug Abuse Patient Records regulations: The Federal rules restrict any use of the information to criminally investigate or prosecute any alcohol or drug abuse patient.[facility] CenterIn the event this information is protected by the Federal Confidentiality of Alcohol and Drug Abuse Patient Records regulations: The Federal rules restrict any use of the information to criminally investigate or prosecute any alcohol or drug abuse patient.[facility] CenterIn the event this information is protected by the Federal Confidentiality of Alcohol and Drug Abuse Patient Records regulations: The Federal rules restrict any use of the information to criminally investigate or prosecute any alcohol or drug abuse patient.[facility] CenterIn the event this information is protected by the Federal Confidentiality of Alcohol and Drug Abuse Patient Records regulations: The Federal rules restrict any use of the information to criminally investigate or prosecute any alcohol or drug abuse patient.[facility] CenterIn the event this information is protected by the Federal Confidentiality of Alcohol and Drug Abuse Patient Records regulations: The Federal rules restrict any use of the information to criminally investigate or prosecute any alcohol or drug abuse patient.[facility] CenterIn the event this information is protected by the Federal Confidentiality of Alcohol and Drug Abuse Patient Records regulations: The Federal rules restrict any use of the information to criminally investigate or prosecute any alcohol or drug abuse patient.[facility] CenterIn the event this information is protected by the Federal Confidentiality of Alcohol and Drug Abuse Patient Records regulations: The Federal rules restrict any use of the information to criminally investigate or prosecute any alcohol or drug abuse patient.[facility] CenterIn the event this information is protected by the Federal Confidentiality of Alcohol and Drug Abuse Patient Records regulations: The Federal rules restrict any use of the information to criminally investigate or prosecute any alcohol or drug abuse patient.[facility] CenterIn the event this information is protected by the Federal Confidentiality of Alcohol and Drug Abuse Patient Records regulations: The Federal rules restrict any use of the information to criminally investigate or prosecute any alcohol or drug abuse patient.[facility] CenterIn the event this information is protected by the Federal Confidentiality of Alcohol and Drug Abuse Patient Records regulations: The Federal rules restrict any use of the information to criminally investigate or prosecute any alcohol or drug abuse patient.[facility] CenterIn the event this information is protected by the Federal Confidentiality of Alcohol and Drug Abuse Patient Records regulations: The Federal rules restrict any use of the information to criminally investigate or prosecute any alcohol or drug abuse patient.[facility] CenterIn the event this information is protected by the Federal Confidentiality of Alcohol and Drug Abuse Patient Records regulations: The Federal rules restrict any use of the information to criminally investigate or prosecute any alcohol or drug abuse patient.[facility] CenterIn the event this information is protected by the Federal Confidentiality of Alcohol and Drug Abuse Patient Records regulations: The Federal rules restrict any use of the information to criminally investigate or prosecute any alcohol or drug abuse patient.[facility] CenterIn the event this information is protected by the Federal Confidentiality of Alcohol and Drug Abuse Patient Records regulations: The Federal rules restrict any use of the information to criminally investigate or prosecute any alcohol or drug abuse patient.[facility] CenterIn the event this information is protected by the Federal Confidentiality of Alcohol and Drug Abuse Patient Records regulations: The Federal rules restrict any use of the information to criminally investigate or prosecute any alcohol or drug abuse patient.[facility] CenterIn the event this information is protected by the Federal Confidentiality of Alcohol and Drug Abuse Patient Records regulations: The Federal rules restrict any use of the information to criminally investigate or prosecute any alcohol or drug abuse patient.[facility] CenterIn the event this information is protected by the Federal Confidentiality of Alcohol and Drug Abuse Patient Records regulations: The Federal rules restrict any use of the information to criminally investigate or prosecute any alcohol or drug abuse patient.[facility] CenterIn the event this information is protected by the Federal Confidentiality of Alcohol and Drug Abuse Patient Records regulations: The Federal rules restrict any use of the information to criminally investigate or prosecute any alcohol or drug abuse patient.[facility] CenterIn the event this information is protected by the Federal Confidentiality of Alcohol and Drug Abuse Patient Records regulations: The Federal rules restrict any use of the information to criminally investigate or prosecute any alcohol or drug abuse patient.[facility] CenterIn the event this information is protected by the Federal Confidentiality of Alcohol and Drug Abuse Patient Records regulations: The Federal rules restrict any use of the information to criminally investigate or prosecute any alcohol or drug abuse patient.[facility] CenterIn the event this information is protected by the Federal Confidentiality of Alcohol and Drug Abuse Patient Records regulations: The Federal rules restrict any use of the information to criminally investigate or prosecute any alcohol or drug abuse patient.[facility] CenterIn the event this information is protected by the Federal Confidentiality of Alcohol and Drug Abuse Patient Records regulations: The Federal rules restrict any use of the information to criminally investigate or prosecute any alcohol or drug abuse patient.[facility] CenterIn the event this information is protected by the Federal Confidentiality of Alcohol and Drug Abuse Patient Records regulations: The Federal rules restrict any use of the information to criminally investigate or prosecute any alcohol or drug abuse patient.[facility] CenterIn the event this information is protected by the Federal Confidentiality of Alcohol and Drug Abuse Patient Records regulations: The Federal rules restrict any use of the information to criminally investigate or prosecute any alcohol or drug abuse patient.[facility] CenterIn the event this information is protected by the Federal Confidentiality of Alcohol and Drug Abuse Patient Records regulations: The Federal rules restrict any use of the information to criminally investigate or prosecute any alcohol or drug abuse patient.[facility] CenterIn the event this information is protected by the Federal Confidentiality of Alcohol and Drug Abuse Patient Records regulations: The Federal rules restrict any use of the information to criminally investigate or prosecute any alcohol or drug abuse patient.[facility] CenterIn the event this information is protected by the Federal Confidentiality of Alcohol and Drug Abuse Patient Records regulations: The Federal rules restrict any use of the information to criminally investigate or prosecute any alcohol or drug abuse patient.[facility] CenterIn the event this information is protected by the Federal Confidentiality of Alcohol and Drug Abuse Patient Records regulations: The Federal rules restrict any use of the information to criminally investigate or prosecute any alcohol or drug abuse patient.[facility] Reason for Visit (unrecogniz ed section and content) Reason Comments Results Reason Comments Refill Request Reason Comments Consult Initial [facility] Pt Outr each Reason Comments Consult [facility] Specialty Diagnoses / Procedures Referred By Contact Referred To Contact Psychiatry / ADULT PSYCHOLOGY Diagnoses 1st eval Procedures VIDEO PSYC/PSYL Solo Casey MD [address] [place] [address] Elliot Mendoza LISW [address] [place] [address] Referral ID Status Reason Start Date Expiration Date V isits Requested Visits Authorized [id number] Authorized 07/26/2021 07/25/2022 99 99 Reason Comments Heartburn with increased bowel movements x8 days Reason Comments Hospital Follow Up [place]; cyst and galls tones Reason Comments Med Change Request Reason Comments Follow Up Reason Comments Appointment Rescheduled Specialty Diagnoses / Procedures Referred By Loc t Referred To Contact ADULT PSYCHIATRY Diagnoses Major depressive disorder, recurrent episode, moderate (HCC) JEREMIAH (generalized anxiety disorder) Borderline personality disorder (HCC) History of ADHD Marijuana use, episodic Procedures CONSULT TO INTENSIVE OUTPATIENT PROGRAM (IOP) OFFICE/OUTPATIENT [facility] MDM 60-74 MINUTES Vidhya Mc, AUTOMOBILE RADIATOR MECHANIC.GAS REGULATOR REPAIRER [address] [place] [address] [facility] [address] [place] [address] Referral ID Status Reason Start Date Expiration Date V isits Requested Visits Authorized [id number] Closed PCP Requested Referral 02/20/2022 02/20/2023 1 1 Specialty Diagnoses / Procedures Referred By Loc t Referred To Contact ADULT PSYCHIATRY Diagnoses NEW DBT Skills Procedures VIDEO PSYC/PSYL GRP (ZOOM) Freddie Cronin, AUTOMO[place] [address] [facility] [address] [place] [address] Referral ID Status Reason Start Date Expiration Date Visits Re quested Visits Authorized [id number] Closed 06/15/2022 07/25/2022 99 99 Reason Comments Sore Throat ST, sinus drainage, MENESES, bodyaches, MENESES, runny nose x 1 day Specialty Diagnoses / Procedures Referred By Loc t Referred To Contact ADULT PSYCHIATRY Diagnoses DBT Skills Procedures VIDEO PSYC/PSYL GRP (ZOOM) Freddie Cronin, AUTOMOBILE RADIATOR MECHANIC.GAS REGULATOR REPAIRER [address] [place] [address] [facility] [address] [place] [address] Referral ID Status Reason Start Date Expiration Date V isits Requested Visits Authorized [id number] Authorized 08/03/2022 07/25/2023 99 99 Reason Comments Pain, Throat Pt reported throat p ain rated 6, Meneses + Covid exposure. Reason Comments Cough mucous in throat Sore Throat body achy Reason Comments Cough Sore Throat Reason Comments Conjunctivitis Woke up with today Reason Comments Rash Bilateral hand Reason Comments Flu Like Symptoms Reason Comments Sore Throat St, drainage, vomiti ng, bodyaches MENESES and congestion x 2 days Reason Comments PRAF Reason Comments Care Reason Comments US Specialty Diagnoses / Procedures Referred By Contac t Referred To Contact [facility] Diagnoses 7 weeks gestation of Uterine size-date discrepancy, first trimester Procedures NUCHAL TRANSLUCENCY WHI US NUCHAL TRANSLUCENCY 1ST GESTATION Marleen Guerra APRN.CN [address] [place] [address] [facility] [address] [place] [address] Referral ID Status Reason Start Date Expiration Date V isits Requested Visits Authorized [id number] Closed Auto-Generate d Referral 05/14/2023 05/13/2024 1 1 Reason Onset Date Comments Care 06/15/2023 Care Teams (unrecognized sec tion and content) Regional Clinical Research Associate Relationship Specialty Start Date End Date Solo Cormier MD [address] [place], [place] [id number] PCP - General Family Practice 03/19/21 Regional Clinical Research Associate Relationship Specialty Start Date End Date Solo Cormier MD [address] [place], [place] [id number] PCP - General Family Practice 03/19/21 Regional Clinical Research Associate Relationship Specialty Start Date End Date Solo Cormier MD [address] [place], [place] [id number] PCP - General Family Practice 03/19/21 Regional Clinical Research Associate Relationship Specialty Start Date End Date Solo Cormier MD [address] [place] [address] PCP - General Family Practice 03/19/21 Regional Clinical Research Associate Relationship Specialty Start Date End Date Podlogar, Marlena, AUTOMOBILE RADIATOR MECHANIC.GAS REGULATOR REPAIRER [address] [facility] [place] [address] PCP - General Family Practice 02/09/22 Regional Clinical Research Associate Relationship Specialty Start Date End Date Podlogar, Marlena, AUTOMOBILE RADIATOR MECHANIC.GAS REGULATOR REPAIRER [address] [facility] [place] [address] PCP - General Family Practice 02/09/22 Regional Clinical Research Associate Relationship Specialty Start Date End Date Podlogar, Marlena, AUTOMOBILE RADIATOR MECHANIC.GAS REGULATOR REPAIRER [address] [facility] [place] [address] PCP - General Family Practice 02/09/22 Regional Clinical Research Associate Relationship Specialty Start Date End Date Podlogar, Marlena, AUTOMOBILE RADIATOR MECHANIC.GAS REGULATOR REPAIRER [address] [place] [address] PCP - General Family Practice 02/09/22 Regional Clinical Research Associate Relationship Specialty Start Date End Date Podlogar, Marlena, AUTOMOBILE RADIATOR MECHANIC.GAS REGULATOR REPAIRER [address] [facility] [place] [address] PCP - General Family Practice 02/09/22 Regional Clinical Research Associate Relationship Specialty Start Date End Date Podlogar, Marlena, AUTOMOBILE RADIATOR MECHANIC.GAS REGULATOR REPAIRER [address] [facility] [place] [address] PCP - General Family Medicine 02/09/22 Regional Clinical Research Associate Relationship Specialty Start Date End Date Podlogar, Marlena, AUTOMOBILE RADIATOR MECHANIC.GAS REGULATOR REPAIRER [address] [facility] [place] [address] PCP - General Family Medicine 02/09/22 Regional Clinical Research Associate Relationship Specialty Start Date End Date Podlogar, Marlena, AUTOMOBILE RADIATOR MECHANIC.GAS REGULATOR REPAIRER [address] [facility] [place] [address] PCP - General Family Medicine 02/09/22 Regional Clinical Research Associate Relationship Specialty Start Date End Date Podlogar, Marlena, AUTOMOBILE RADIATOR MECHANIC.GAS REGULATOR REPAIRER [address] [facility] [place] [address] PCP - General Family Medicine 02/09/22 Regional Clinical Research Associate Relationship Specialty Start Date End Date Podlogar, Marlena, AUTOMOBILE RADIATOR MECHANIC.GAS REGULATOR REPAIRER [address] [facility] [place] [place] [address] PCP - General Family Medicine 02/09/22 Regional Clinical Research Associate Relationship Specialty Start Date End Date Podlogar, Marlena, AUTOMOBILE RADIATOR MECHANIC.GAS REGULATOR REPAIRER [address] [facility] [place] [address] PCP - General Family Medicine 02/09/22 Regional Clinical Research Associate Relationship Specialty Start Date End Date Podlogar, Marlena, AUTOMOBILE RADIATOR MECHANIC.GAS REGULATOR REPAIRER [address] [facility] [place] [address] PCP - General Family Medicine 02/09/22 Regional Clinical Research Associate Relationship Specialty Start Date End Date Podlogar, Marlena, AUTOMOBILE RADIATOR MECHANIC.GAS REGULATOR REPAIRER [address] [facility] [place] [address] PCP - General Family Medicine 02/09/22 Regional Clinical Research Associate Relationship Specialty Start Date End Date Podlogar, Marlena, AUTOMOBILE RADIATOR MECHANIC.GAS REGULATOR REPAIRER [address] [facility] [place] [address] PCP - General Family Medicine 02/09/22 Regional Clinical Research Associate Relationship Specialty Start Date End Date Podlogar, Marlena, AUTOMOBILE RADIATOR MECHANIC.GAS REGULATOR REPAIRER [address] [facility] [place] [address] PCP - General Family Medicine 02/09/22 Regional Clinical Research Associate Relationship Specialty Start Date End Date Podlogar, Marlena, AUTOMOBILE RADIATOR MECHANIC.GAS REGULATOR REPAIRER [address] [facility] [place] [address] PCP - General Family Medicine 02/09/22 Regional Clinical Research Associate Relationship Specialty Start Date End Date Podlogar, , AUTOMOBILE RADIATOR MECHANIC.GAS REGULATOR REPAIRER [address] [place] [address] PCP - General Family Medicine 02/09/22 Regional Clinical Research Associate Relationship Specialty Start Date End Date Podlogar, Marlena, AUTOMOBILE RADIATOR MECHANIC.GAS REGULATOR REPAIRER [address] [place] [address] PCP - General Family Medicine 02/09/22 Regional Clinical Research Associate Relationship Specialty Start Date End Date Podlogar, Marlena, AUTOMOBILE RADIATOR MECHANIC.GAS REGULATOR REPAIRER [address] [place] [address] PCP - General Family Medicine 02/09/22 Regional Clinical Research Associate Relationship Specialty Start Date End Date Podlogar, , AUTOMOBILE RADIATOR MECHANIC.GAS REGULATOR REPAIRER [address] [place] [address] PCP - General Family Medicine 02/09/22 Regional Clinical Research Associate Relationship Specialty Start Date End Date Podlogar, , AUTOMOBILE RADIATOR MECHANIC.GAS REGULATOR REPAIRER [address] [place] [address] PCP - General Family Medicine 02/09/22 Regional Clinical Research Associate Relationship Specialty Start Date End Date Podlogar, , AUTOMOBILE RADIATOR MECHANIC.GAS REGULATOR REPAIRER [address] [place] [address] PCP - General Family Medicine 02/09/22 Regional Clinical Research Associate Relationship Specialty Start Date End Date Podlogar, , AUTOMOBILE RADIATOR MECHANIC.GAS REGULATOR REPAIRER [address] [place] [address] PCP - General Family Medicine 02/09/22 Care Team (unrecognized sect ion and content) Care Team Personnel Name: MARLENA PARIKH AUTOMOBILE RADIATOR MECHANIC.GAS REGULATOR REPAIRER Member Role: Primary Care Physician Address: Address: [address] [place] [address]- Name: HARSHAL EAST MD Position: ED Physician Member Role: ED Physician Address: Address: LAURA ARZATE [facility] [address] [place], [place] [address] Name: Cinthya Lu RN Position: AO RN Member Role: ED RN Care Team Related Persons Name: HASEEB KUHN Address: [address] Name: CHIARA DANIELLE Address: [place] [address] FOR RECORDS PERTAINING TO PATIENTS WHO ARE OR HAVE BEEN ENROLLED IN A CHEMICAL DEPENDENCY/SUBSTANCEABUSE PROGRAM, SOME INFORMATION MAY BE OMITTED. This clinical summary was aggregated from multiple sources. Caution should be exercised in using it in the provision of clinical care. This summary normalizes information from multiple sources, and as a consequence, information in this document may materially change the coding, format and clinical context of patient data. In addition, data may be omitted in some cases. CLINICAL DECISIONS SHOULD BE BASED ON THE PRIMARY CLINICAL RECORDS. [facility] [employer] provides no warranty or guarantee of the accuracy or completeness of information in this document.
--- NOTE | 2023-07-29 19:16 | OB.TRI.NOTE ---
HPI - General General Date of Service: 07/29/23 HPI Narrative SEEMA MACKENZIE, is a 27 F who presents with pelvic pain. Maternal Data Information Final LAURIE: 12/06/23 Gestational age: 21&3 PFSH PFS Medical History Home Medications fluoxetine 20 mg capsule 20 mg PO DAILY 07/17/21 [History Last Taken Unknown] hydroxyzine pamoate 25 mg capsule (Vistaril) 25 mg PO BID PRN Anxiety 07/17/21 [History Last Taken Unknown] norgestimate 0.25 mg-ethinyl estradiol 35 mcg tablet (Nini) 1 tab PO DAILY 07/17/21 [History Last Taken Unknown] aspirin 81 mg capsule 81 mg PO DAILY 07/29/23 [History Last Taken 07/29/23] magnesium oxide 420 mg tablet 420 mg PO DAILY 07/29/23 [History Last Taken 07/29/23] vit no.95-ferrous fumarate 28 mg-folic acid 800 mcg tablet () 1 tab PO DAILY 07/29/23 [History Last Taken 07/29/23] Allergy/AdvReac Type Severity Reaction Status Date / Time No Known Allergies Allergy Verified 10/17/18 12:38 Social History Smoking Status: Never smoker alcohol intake: never History Elective abortions Hx Para 1 Spontaneous abortions Hx # Term Pregnancies Ectopic pregnancies Hx # Pregnancies Multiple births # of living children Assessment & Plan (1) Pelvic pain affecting : QUALIFIERS: Trimester: second trimester Qualified Code(s): O26.892 - Other specified related conditions, second trimester; R10.2 - Pelvic and perineal pain PLAN: Plan Reassuring heart tones
== END 2023-07-29 18:00 | disposition home or self-care (01) ==
LOC: WPOUT 15:57 → WP 15:59
PROVIDERS: PCP Nurse Practitioner Primary Care; Referring Provider Obstetrics & Gynecology; Visit Provider Obstetrics & Gynecology
DX: O26.892 Other specified pregnancy related conditions, second trimester (principal); R10.2 Pelvic and perineal pain; Z3A.00 Weeks of gestation of pregnancy not specified
CPT/HCPCS: 59025; 59050; 99221; G0378

== ENCOUNTER 2023-12-07 07:13 | Outpatient (CLI) | payer MEDICAID, SELFPAY ==
[2023-07-29 16:29] VITALS: RESP 18
[2023-07-29 17:45] VITALS: RESP 18
[2023-12-07 07:27] VITALS: BP 112/64; PULSE 88
[2023-12-07 08:26] VITALS: BMI 35.2
--- NOTE | 2024-01-06 06:59 | OB.TRI.HP_ITS ---
HPI - General General Date of Service: 01/07/24 Chief Complaint: elective induction HPI Narrative SEEMA MACKENZIE, is a 28 F who presents Maternal Data Information Gestational age: 40&1 PFSH [facility] Medical History HPV (human papilloma virus) infection hemorrhage depression Depression Anxiety Headache Home Medications ?Medication ?Instructions ?Recorded ?Last Taken ?Type fluoxetine 20 mg capsule 20 mg PO DAILY depression 07/17/21 12/07/23 History hydroxyzine pamoate 25 mg capsule 25 mg PO BID PRN Anxiety 07/17/21 12/07/23 History (Vistaril) vit no.95-ferrous 1 tab PO DAILY 07/29/23 07/29/23 History fumarate 28 mg-folic acid 800 mcg tablet () Allergy/AdvReac Type Severity Reaction Status Date / Time No Known Allergies Allergy Verified 12/08/23 11:14 Surgical History (Updated 12/08/23 @ 08:10 by Allison Manriquez) History of surgery Social History Smoking Status: Former smoker alcohol intake: never History 3 Elective abortions Hx Para 2 Spontaneous abortions Hx # Term Pregnancies Ectopic pregnancies Hx # Pregnancies Multiple births # of living children Assessment & Plan (1) 40 weeks gestation of : PLAN: Elective induction postponed until next day
== END 2023-12-07 09:35 | disposition home or self-care (01) ==
LOC: WP 09:30 → WPOUT 09:47 → WP 09:47
PROVIDERS: PCP Nurse Practitioner Primary Care; Referring Provider Obstetrics & Gynecology; Visit Provider Obstetrics & Gynecology
DX: Z34.93 Encounter for supervision of normal pregnancy, unspecified, third trimester (principal)
CPT/HCPCS: 59025; 59050 ×2; G0378 ×2; 99221

== ENCOUNTER 2023-12-08 07:34 | Inpatient (IN) | payer MEDICAID, SELFPAY ==
[2023-12-08] VITALS (50 sets, daily range): BP systolic 88–137; BP diastolic 50–81; PULSE 60–97; RESP 18–24; TEMP 36.7–37.2; O2SAT 80–100; BMI 35.6
[2023-12-08] MEDS: Lactated Ringers 1,000 ML 50 ML IV (07:25)
[2023-12-08] MEDS: Penicillin G Pot 5,000,000 UNITS in 0.9% Normal Saline (100mL MB+) 100 ML 150 UNITS IV (07:59)
[2023-12-08 08:01] LABS: Absolute Lymphocyte Count 2.42 X10^3/uL (0.83-4.51); Absolute Neutrophil Count 6.6 X10^3/uL (2.0-7.7); Basophil# 0.06 X10^3/uL; Basophil% 0.6 % (0-1); Eosinophil# 0.06 X10^3/uL; Eosinophils% 0.6 % (0-5); Hemoglobin 10.2 g/dL (12.0-15.0); Lymphocyte # 2.42 X10^3/ul (0.83-4.51); Lymphocyte % 24.2 % (19-41); Mean Corp Hgb Conc 31.9 g/dL (32-36); Mean Corpuscular Hgb 25.4 pg (27.0-32.0); Mean Corpuscular Volume 79.6 fL (81-99); Mean Platelet Vol. 11.2 fl (6.2-12.0); Monocyte# 0.66 X10^3/uL; Monocyte% 6.6 % (0-10); NRBC Flagged by Analyzer 0 % (0-5); Neutrophil # 6.55 X10^3/uL (2.7-7.7); Neutrophil % 65.3 % (47-70); Platelet Count 232 K/mm3 (150-450); RBC Distribution Width SD 39.7 fl (35.1-43.9); Red Blood Count 4.02 M/mm3 (4.2-5.4)
[2023-12-08 08:32] LABS: Syphilis Antibodies Non-reactive
--- NOTE | 2023-12-08 08:43 | HP.PCM.OB_ITS ---
HPI - General General Date of Admission: 12/08/23 Date of Service: 12/08/23 Chief Complaint: Induction HPI Narrative SEEMA MACKENZIE, is a 28 F who presents elective IOL. No contractions. GBS pos. Vertex by u/s. Unable to reach cervix to place Arroyo bulb. Maternal Data Information Final LAURIE: 12/06/23 Gestational age: 40+2 [facility] Medical History HPV (human papilloma virus) infection hemorrhage depression Depression Anxiety Headache Home Medications ?Medication ?Instructions ?Recorded ?Last Taken ?Type fluoxetine 20 mg capsule 20 mg PO DAILY 07/17/21 Unknown History hydroxyzine pamoate 25 mg capsule 25 mg PO BID PRN Anxiety 07/17/21 Unknown History (Vistaril) norgestimate 0.25 mg-ethinyl 1 tab PO DAILY 07/17/21 Unknown History estradiol 35 mcg tablet (Nini) aspirin 81 mg capsule 81 mg PO DAILY 07/29/23 07/29/23 History magnesium oxide 420 mg tablet 420 mg PO DAILY 07/29/23 07/29/23 History vit no.95-ferrous 1 tab PO DAILY 07/29/23 07/29/23 History fumarate 28 mg-folic acid 800 mcg tablet () Allergy/AdvReac Type Severity Reaction Status Date / Time No Known Allergies Allergy Verified 10/17/18 12:38 Surgical History (Updated 12/08/23 @ 08:10 by Allison Manriquez) History of surgery Social History Smoking Status: Never smoker alcohol intake: never History 3 Elective abortions Hx Para 2 Spontaneous abortions Hx # Term Pregnancies Ectopic pregnancies Hx # Pregnancies Multiple births # of living children NST FHR Rate Baby A Baseline: 130s Variability:: Moderate Accelerations:: 15 x 15 Decelerations:: None NST Reactive:: Yes FHR Category:: Category I Uterine Activity:: none ROS Constitutional Constitutional: Denies fatigue, fever(s) or malaise Eyes Eyes: Denies change in vision ENT HEENT: Denies dizziness or headache(s) Cardiovascular Cardiovascular: Denies chest pain, dyspnea or lightheadedness Respiratory/Chest Respiratory/Chest: Denies cough or dyspnea Gastrointestinal Gastrointestinal: Denies change in bowel habits Genitourinary Genitourinary: Denies burning urination or genital lesions Integumentary Integumentary: Denies rash Neurologic Neurologic: Denies confusion, dizziness, headache(s), numbness or weakness Vital Signs Vital Signs Vital Signs: 12/08/23 07:15 12/08/23 07:15 12/08/23 07:15 Temperature Temperature Source Pulse Rate 88 Respiratory Rate Blood Pressure 125/74 H 125/74 H BP Systolic 125 125 BP Diastolic 74 74 12/08/23 07:15 12/08/23 08:23 12/08/23 08:23 Temperature Temperature Source Temporal Temporal Pulse Rate 88 Respiratory Rate Blood Pressure BP Systolic BP Diastolic 12/08/23 08:23 12/08/23 08:23 12/08/23 08:23 Temperature 98.5 F Temperature Source Pulse Rate Respiratory Rate 18 18 Blood Pressure BP Systolic BP Diastolic 12/08/23 08:23 Temperature 98.5 F Temperature Source Pulse Rate Respiratory Rate Blood Pressure BP Systolic BP Diastolic Weight Weight: 91.172 kg Body Mass Index (BMI) 35.6 Physical Exam Const alert and no apparent distress General Appearance: cooperative HEENT normocephalic Resp normal respiratory effort GI soft to palpation GI Narrative: gravid, nontender, appropriate for gestational age Extremity no calf tenderness General Extremity: edema Skin no wounds Rashes: No rashes noted Psych activity/motor behavior normal Labs Labs Labs: Blood Type A POSITIVE Antibody Screen NEGATIVE Hct 32.0 % (37-47) L Hgb 10.2 g/dL (12.0-15.0) L Obstetrics Ultrasound Syphilis Total Ab Non-reactive Chlamydia DNA ([facility]) Negative (Negative) N.gonorrhoeae DNA ([facility]) Negative (Negative) Rhogam given: No Miscellaneous Test Assessment & Plan (1) Post-dates : (2) Positive GBS test: (3) 40 weeks gestation of : PLAN: Plan IOL of labor. Multip. Will start Pitocin. Arroyo and/or AROM when able
[2023-12-08] MEDS: Oxytocin 15 Units/NS 250ml 15 UNITS/250 ML IV.SOLN 2 UNITS IV (08:47)
[2023-12-08] MEDS: Mag Hydrox/Al Hydrox/Simeth 30 ML UDC PO (09:39)
[2023-12-08] MEDS: Penicillin G 3,000,000 Units 50 ML 100 UNITS IV (12:12)
--- NOTE | 2023-12-08 12:36 | PCM.PN.OB ---
Subjective Subjective AROM for clear fluid. /-3 Objective Data Objective Data Vital Signs: Vital Signs Temp Pulse Resp BP 98.0 F 60 18 123/66 H 12/08/23 11:52 12/08/23 11:28 12/08/23 08:23 12/08/23 11:28 Weight: 91.172 kg Body Mass Index (BMI) 35.6 Intake & Output: Intake and Output for Last 24 Hours 12/06/23 12/07/23 12/08/23 23:59 23:59 23:59 Intake Total 0.97 / 0.97 Output Total 350 / 350 Balance -349.03 / -349.03 Lab / Micro Data 12/08/23 07:25 Labs: Laboratory Results - last 24 hr 12/08/23 07:25: WBC 10.0, RBC 4.02 L, Hgb 10.2 L, Hct 32.0 L, MCV 79.6 L, MCH 25.4 L, MCHC 31.9 L, RDW Std Deviation 39.7, RDW Coeff of Aroldo 14.0, Plt Count 232, MPV 11.2, Immature Gran % (Auto) 2.700 H, Neut % (Auto) 65.3, Lymph % (Auto) 24.2, [place] % (Auto) 6.6, Eos % (Auto) 0.6, Baso % (Auto) 0.6, Absolute Neuts (auto) 6.6, Absolute Lymphs (auto) 2.42, Nucleated RBC % 0, Syphilis Total Ab Non-reactive, Blood Type A POSITIVE, Antibody Screen NEGATIVE NST FHR Rate Baby A Baseline: 130 Variability:: Moderate Accelerations:: 15 x 15 Decelerations:: Early NST Reactive:: Yes FHR Category:: Category II Uterine Activity:: q 3 Assessment & Plan (1) 40 weeks gestation of : (2) Positive GBS test: PLAN: Plan Pitocin per protocol
[2023-12-08] MEDS: Penicillin G 3,000,000 Units 50 ML 150 UNITS IV (16:07)
[2023-12-08] MEDS: fentaNYL 100 MCG/2 ML Ampul IV (17:47)
[2023-12-08] MEDS: LACTATED RINGERS 500 ML 999 ML IV (18:41)
[2023-12-08] MEDS: Lactated Ringers 1,000 ML 200 ML IV (19:10)
[2023-12-08] MEDS: fentaNYL-bupivacaine (epidural) 100 ML BAG EPIDURAL (19:31)
--- NOTE | 2023-12-08 20:13 | EX.PCM.OBRPT ---
Assessment & Plan (1) 40 weeks gestation of : (2) (spontaneous vaginal delivery): Maternal Data Information Final LAURIE: 12/06/23 Gestational age: 40+2 Vaginal Delivery Maternal Presentation Maternal Presentation: Elective Induction Type of Induction: Pitocin Operative Information Date of Procedure: 12/08/23 Pre-Operative Diagnosis: IOL at term Post-Operative Diagnosis: same Surgery / Procedure Performed: Spontaneous Vaginal Delivery Type of Anesthesia: Epidural Estimated Blood Loss: 100 cc Time of Delivery: 19:56 Findings Description of Procedure: After progressing to complete, patient pushed over an intact perineum from a 0 station. Infant delivered CHEIKH with a CAN x 1 that was easily reduced. The anterior and posterior shoulders then delivered with maternal effort. The was placed on the maternal abdomen. The cord was clamped and cut. The placenta was delivered with gentle traction. No laceration needed repaired. Presentation: CHEIKH Amniotic Membrane Rupture Type: Artificial Amniotic Fluid Description: Clear Placental Delivery Description: Spontaneous Placenta Disposition: [facility] Cord Vessel Description: 3 Vessels Cord Entanglement: Around neck x 1, loose Nuchal Cord Compression: Without compression Infant A Gender: Male (1 minute): 8 (5 minute): 9 Delayed Cord Clamping: Yes Post Vaginal Delivery Medications Given After Delivery: IV Pitocin Episiotomy Description: None Laceration: None Complication Complications: None
[2023-12-08] MEDS: Acetaminophen 500 MG Tablet 1000 MG PO (20:28)
[2023-12-08] MEDS: Oxytocin 15 Units/NS 250ml 15 UNITS/250 ML IV.SOLN 83 UNITS IV (20:30)
--- NOTE | 2023-12-08 21:46 | NURSING ---
this RN discussed MMR vaccine with pt due to pt rubella non-immune status, pt consents to MMR vaccination
[2023-12-08 22:46] LABS: Amphetamine Urine VISTA NEGATIVE (<1000 ng/mL); Barbiturate Urine VISTA NEGATIVE (< 200 ng/mL); Benzodiazepine Urine VISTA NEGATIVE (< 200 ng/mL); Cocaine Urine VISTA NEGATIVE (< 300 ng/mL); Ecstacy Urine VISTA NEGATIVE (< 500 ng/mL); Methadone Urine VISTA NEGATIVE (< 300 ng/mL); PCP Urine VISTA NEGATIVE (< 25 ng/mL); THC Urine VISTA NEGATIVE (< 50 ng/mL); Vista UDS pH Range 5
[2023-12-08] MEDS: 0.9% Saline Lock 10 ML Syringe IV (23:37)
[2023-12-09] MEDS: Fluoxetine HCl 40 MG CAPSULE PO ×2 (00:03→22:27)
[2023-12-09 01:10] VITALS: BP 103/43; PULSE 65; TEMP 36.9; O2SAT 98
[2023-12-09 04:16] VITALS: BP 103/49; PULSE 75; RESP 18; TEMP 37; O2SAT 99
[2023-12-09] MEDS: Hydrocortisone 2.5% Crm 1 APPLIC TOPICAL (05:08)
--- NOTE | 2023-12-09 08:03 | PCM.PN.CNM ---
Subjective Subjective Patient seen at bedside. Denies pain. Ambulating and voiding without difficulty. Lochia decreasing. Formula feeding. Desires discharge home tomorrow. Objective Data Objective Data Vital Signs: Vital Signs Temp Pulse Resp BP Pulse Ox O2 Del Method 98.6 F 75 18 103/49 L 99 Room Air 12/09/23 04:16 12/09/23 04:16 12/09/23 04:16 12/09/23 04:16 12/09/23 04:16 12/09/23 04:16 Oxygen Delivery Method Room Air Weight: 201 lb Body Mass Index (BMI) 35.6 Intake & Output: Intake and Output for Last 24 Hours 12/07/23 12/08/23 12/09/23 23:59 23:59 23:59 Intake Total 2371.67 / 2371.67 0 / 0 Output Total 1250 / 1250 800 / 800 Balance 1121.67 / 1121.67 -800 / -800 Lab / Micro Data 12/08/23 07:25 Labs: Laboratory Results - last 24 hr 12/08/23 07:25: Syphilis Total Ab Non-reactive, Blood Type A POSITIVE, Antibody Screen NEGATIVE 12/08/23 18:25: Urine Opiates Screen NEGATIVE, Urine Methadone Screen NEGATIVE, Ur Barbiturates Screen NEGATIVE, Ur Phencyclidine Scrn NEGATIVE, Ur Amphetamines Screen NEGATIVE, MDMA (Ecstasy) Screen NEGATIVE, U Benzodiazepines Scrn NEGATIVE, Urine Cocaine Screen NEGATIVE, U Cannabinoids Screen NEGATIVE, Ur Drug Screen Comment ROS Eyes Eyes: Denies blurry vision, change in vision or spots in vision ENT HEENT: Denies dizziness or headache(s) Cardiovascular Cardiovascular: Denies abdominal pain, chest pain or dyspnea Respiratory/Chest Respiratory/Chest: Denies cough, dyspnea, shortness of breath at rest or shortness of breath with exertion Gastrointestinal Gastrointestinal: Denies abdominal pain, diarrhea or vomiting Genitourinary Genitourinary: Denies change in urinary stream, difficulty urinating or dysuria Musculoskeletal Musculoskeletal: Reports none Integumentary Integumentary: Denies rash Neurologic Neurologic: Denies dizziness, headache(s), memory loss or weakness Assessment & Plan (1) (spontaneous vaginal delivery): (2) Rubella non-immune status, antepartum: PLAN: Plan PPD 1 Routine care Pain control D/C home tomorrow
[2023-12-09 08:37] VITALS: BP 112/71; PULSE 65; RESP 16; TEMP 36.8; O2SAT 99
[2023-12-09] MEDS: Acetaminophen 500 MG Tablet 1000 MG PO (08:40)
[2023-12-09 12:24] VITALS: BP 109/66; PULSE 69; RESP 16; TEMP 36.7; O2SAT 99
[2023-12-09 15:43] VITALS: BP 96/59; PULSE 72; RESP 18; TEMP 36.6; O2SAT 95
[2023-12-09] MEDS: Prenatal Vits Tablet 1 TABLET PO (17:05)
[2023-12-09] MEDS: Ibuprofen 600 MG Tablet PO (17:05)
[2023-12-09 20:44] VITALS: BP 103/57; PULSE 72; RESP 16; TEMP 36.7
[2023-12-09] MEDS: MEASLES,MUMPS,RUBELLA VACC/PF 0.5 ML SC (22:28)
[2023-12-10 02:45] VITALS: BP 110/74; PULSE 68; RESP 16; TEMP 36.9; O2SAT 97
[2023-12-10] MEDS: Ibuprofen 600 MG Tablet PO ×2 (02:50→11:08)
[2023-12-10 08:12] VITALS: BP 105/71; PULSE 93; RESP 18; TEMP 36.4; O2SAT 99
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
[2023-12-10 13:00] VITALS: BP 124/84; PULSE 75; RESP 16
--- NOTE | 2023-12-10 13:21 | DS.PCM_ITS ---
Providers Date of Admission: 12/08/23 Primary Care Physician: Marlena Parikh, [employer]ER-C Reason For Visit: VAGINAL DELIVERY Diagnosis Discharge Diagnosis (1) (spontaneous vaginal delivery): Status: Acute Code(s): O80 - Encounter for full-term uncomplicated delivery (2) Rubella non-immune status, antepartum: Status: Acute Code(s): O99.89 - Other specified diseases and conditions complicating , childbirth and the puerperium; Z28.3 - Underimmunization status Medications at Discharge Home Medications fluoxetine 20 mg capsule 20 mg PO DAILY depression 07/17/21 hydroxyzine pamoate 25 mg capsule (Vistaril) 25 mg PO BID PRN Anxiety 07/17/21 vit no.95-ferrous fumarate 28 mg-folic acid 800 mcg tablet () 1 tab PO DAILY 07/29/23 Hospital Course Operations None Procedures None Summary of Care Provided Minutes Spent on Discharge: 21 Hospital Course: 28-year-old multigravida female admitted for elective induction of labor at term on 12/08/2023. On 12/08/2023 she had vaginal delivery without complications. By day #2 she was ambulating, urinating tolerating regular diet without difficulty and desired discharge home. She is to use [id number] pain medications as needed. Follow-up in the office or virtual visit in 1 to 2 weeks and then 6 weeks or as needed. Physical Exam Const alert and no apparent distress Narrative: Fundus firm, below umbilicus. Weight / BMI Weight Weight: 91.172 kg Body Mass Index (BMI) 35.6 ABG / Lab / Microbiology Data 12/08/23 07:25 D/C Instructions May resume sexual activity in: 6 weeks Please Follow Up With: Marcia Franco MD When: Follow up with our office in 1-2 and 6 weeks or as needed. [phone] Call or send a AIM message Meaningful Use Info Meaningful Use Meaningful Use Diagnoses (Choose all that apply): None applicable Ischemic Stroke Statin Dosing Therapy Reference: STATIN DOSE THERAPY REFERENCE: * Patients > 75 years receive moderate or high dose statin therapy. * Patients 75 years or YOUNGER should receive HIGH intensity statin dose unless contraindicated. You will be required to document reason for non-treatment if statin daily dose does not meet guidelines. HIGH DOSE STATIN THERAPY DAILY Atorvastatin > than or = to 40 mg Rosuvastatin > than or = to 20 mg Amlodipine + Atorvastatin > than or = to 2.5/40 mg Ezetimibe + Simvastatin 10/80 mg Simvastatin 80mg Discharge Plan Admission Admit Date/Time: 12/08/23 07:34 Primary Reason for Your Visit: vaginal delivery Attending Provider: Marcia Franco Primary Care Provider: Marlena Parikh NP Discharge Orders/Prescriptions Prescriptions: Continued fluoxetine 20 mg Capsule 20 mg PO DAILY hydroxyzine pamoate [Vistaril] 25 mg Capsule 25 mg PO BID PRN (Reason: Anxiety) PNV cmb#95-ferrous fumarate-FA [] 28 mg iron- 800 mcg tablet 1 tab PO DAILY Discontinued aspirin 81 mg capsule 81 mg PO DAILY magnesium oxide 420 mg tablet 420 mg PO DAILY Referrals / Follow Up: Marlena Parikh NP, [employer]ER-C [Primary Care Provider] - Disposition Disposition (needs filled in before D/C Order can be placed): Home, Self Care
== END 2023-12-10 13:53 | disposition home or self-care (01) | DRG 560 ==
PROVIDERS: Admitting Provider Obstetrics & Gynecology; PCP Nurse Practitioner Primary Care; Visit Provider Obstetrics & Gynecology
DX: O48.0 Post-term pregnancy (principal); Z37.0 Single live birth; B95.1 Streptococcus, group B, as the cause of diseases classified elsewhere; O69.2XX0 Labor and delivery complicated by other cord entanglement, with compression, not applicable or unspecified; O99.824 Streptococcus B carrier state complicating childbirth; Z3A.40 40 weeks gestation of pregnancy; O99.893 Other specified diseases and conditions complicating puerperium; Z28.39 Other underimmunization status
CPT/HCPCS: 59025; 59050; 80307; 85025; 86780; 86850; 86900; 86901; 99221; J7120; A4216; G0378